=== PATIENT | male | born 1960 | race Caucasian/White ===

== ENCOUNTER 2016-12-28 17:17 | Inpatient (IN) ==
[2016-12-28] MEDS ORDERED: NS 1,000 ML IV ONE (17:34)
[2016-12-28] MEDS ORDERED: TYLENOL PO ONE (17:34)
--- NOTE | 2016-12-28 17:44 | PROVIDER DOCUMENTATION ---
HPI-Fever - General Chief Complaint: Fever Stated Complaint: GOUT Time Seen by Provider: 12/28/16 17:24 Source: patient Allergies/Adverse Reactions: Patient Allergies Allergy/AdvReac Type Severity Reaction Status Date / Time No Known Allergies Allergy Verified 06/15/16 20:59 Home Medications: Home Medication List Medication Instructions Recorded Confirmed Last Taken Type Hydrocodone/APAP 10 mg/325 mg 1 each PO BID 12/16/14 08/12/16 08/11/16 15:00 History [[place]-10] Indomethacin S.r. [Indocin Sr] 75 mg PO DAILY 12/16/14 08/12/16 08/11/16 08:00 History Methadone 10 mg PO TID 12/16/14 08/12/16 08/11/16 18:00 History Prednisone 10 mg PO DAILY 12/16/14 08/12/16 08/11/16 18:00 History Omeprazole [Prilosec] 40 mg PO DAILY@0700 06/15/16 08/12/16 08/12/16 08:00 History Allopurinol 300 mg PO BID 08/05/16 08/12/16 08/11/16 08:00 History Clonazepam [Klonopin] 2 mg PO HS 08/05/16 08/12/16 08/11/16 20:00 History Diazepam [Valium] 10 mg PO PRN PRN 08/05/16 08/12/16 2 Months Ago History Lisinopril [Zestril] 10 mg PO DAILY 08/05/16 08/12/16 08/12/16 08:00 History Oxycodone HCl/Acetaminophen 1 - 2 each PO Q6H PRN PRN #30 08/12/16 Unknown Rx [Percocet 10-325 mg Tablet] tablet Sulfamethoxazole/Trimethoprim 1 each PO BID #20 tablet 08/12/16 Unknown Rx [Bactrim Ds Tablet] - History of Present Illness-Fever Nature of Presenting Problem: Pt. is 56 yom that presents with c/o pain all over and states he has been out of his gout medications. Pt. is confused and friend at bedside reports he has been sick since Friday a week ago. Pt. reports he is SOB and is very lethargic. Fever Severity/Quality: reports: greater than 100.5 F Onset/Duration: reports: gradual, 1 week ago Timing: reports: still present. denies: improving, gone now, resolved prior to arrival, intermittent, constant, changing over time, getting worse Severity: reports: moderate. denies: mild, severe Context: reports: confusion Recent Illness?: reports: none. denies: pneumonia, UTI, MRSA, C. Diff Fever Therapy GLASS TUBE BENDER: Initiated none Cognitive Baseline: alert but confused Modifying Factors: improves with: nothing Associated Symptoms: reports: fatigue, fever/chills, joint pain, malaise, muscle aches, shortness of breath, weakness. denies: anxiety, arm pain, back/ neck pain, chest pain, constipation, cough, diaphoresis, diarrhea, dizziness, EENT symptoms, genitourinary problems, headaches, heartburn, loss of appetite, sinus congestion/drainage, nausea, rash, seizure, sensory/motor loss, pain with inspiration, swelling/mass in abdomen, syncope, vomiting, trouble walking Similar Symptoms Previously?: Yes Recently seen or treated by another doctor?: No - [place]ow Coma Score Best Eye Response ([place]ark[place]): (3) open to voice Best Verbal Response ([place]le): (4) confused conversation Best Motor Response ([place]): (6) obeys commands Review of Systems - Adult - REVIEW OF SYSTEMS - ADULT Constitutional: reports: see HPI, fever, fatique. denies: chills, night sweats Eyes: reports: see HPI. denies: discharge, blurred vision, double vision Ears, Nose, Mouth & Throat: reports: see HPI. denies: ear pain, hearing loss, sinus problem, nose pain, loose teeth, throat pain, throat swelling Cardiovascular: reports: see HPI. denies: edema, irregular heart rate, palpitations, syncope Respiratory: reports: see HPI, shortness of breath. denies: dyspnea on exertion , pleurisy, wheezing Gastrointestinal: reports: see HPI. denies: abdominal pain, diarrhea, nausea, vomiting Genitourinary: reports: see HPI. denies: discharge, flank pain, hesitency, urgency Musculoskeletal: reports: see HPI, joint pain, muscle aches. denies: back pain , neck pain Integumentary: reports: see HPI. denies: hair loss, itching, rash, skin thickening Neurological: reports: see HPI. denies: ataxia, headache/migraines, numbness, seizure, tremors Psychiatric: reports: see HPI. denies: anxiety, depression, emotional problems , insomnia, panic attacks, suicidal thoughts Past History - Adult - PAST MEDICAL HISTORY-ADULT Review of Records: reports: Old Records Reviewed, Nursing Assessment Review, Medications Reviewed, Social history reviewed & non-contributory. Major Childhood Illnesses: reports: denies history Cardiovascular: reports: HTN, hyperlipidemia Respiratory: reports: denies history Gastrointestinal: reports: denies history Obstetrical/Gynecological: reports: denies history Genitourinary: reports: denies history Musculoskeletal: reports: chronic pain Neurological: reports: denies history Psychiatric: reports: anxiety Endocrine/Immune: reports: denies history Other Conditions: reports: skin disorder - IMMUNIZATION STATUS Childhood Immunizations: See Nurse Assessment Flu Vaccine: See Nurse Assessment - FAMILY HISTORY Family History: reviewed, not pertinent - SOCIAL HISTORY Smoking: non-smoker Physical Exam-General - PHYSICAL EXAM-ADULT Initial Vital Signs Reviewed: Yes - CONSTITUTIONAL General Appearance: alert, moderate distress, obese, lethargic. negative: thin , anxious, slow to respond, obtunded, combative - EYES Eyes: PERRL/EOMI, pink conjunctivae. negative: conjuctival exudate, scleral icterus, subconjunctival hemorrhage - HEAD, EARS, NOSE, MOUTH & THROAT HENMT: normocephalic/atraumatic, moist mucous membranes. negative: angioedema, frontal tenderness, maxillary tenderness - NECK Neck: non-tender, full range of motion, supple, normal inspection. negative: lymphadenopathy, trachial deviation, thyromegaly - RESPIRATORY Respiratory: lungs clear, normal breath sounds, increased rate. negative: crackles, rales, rhonchi, stridor, wheezing - CARDIOVASCULAR Cardiovascular: regular rate, rhythm, no JVD, no murmur, tachycardia. negative : extra beats, friction rub, irregularly irregular - GASTROINTESTINAL (ABDOMEN) Abdominal Exam: normal bowel sounds, non tender, soft. negative: distended, guarding, rigid, rebound, tenderness, hernia, mass - LYMPHATIC Lymphatic: no adenopathy. negative: axilla node tender, cervical node tenderness - MUSCULOSKELETAL Back Exam: normal inspection, no CVA tenderness, no vertebral tenderness. negative: ecchymosis, swelling, vertebral tenderness Extremity: normal range of motion, non-tender, normal gait, normal inspection. negative: deformity, erythema, inflammation, swelling, tenderness Peripheral Pulses: radial (R): 2+, radial (L): 2+ - SKIN Integumentary: normal turgor, warm/dry, pallor. negative: cyanosis, diaphoresis , ecchymosis, erythema, jaundice, mottled, petechiae, purpura, rash, swelling, tenderness - NEUROLOGIC Neurologic: grossly normal, no motor/sensory deficits. negative: aphasia, facial droop, focal weakness, motor weakness, sensory deficit - PSYCHIATRIC Psych/Mental Status: normal thought content, normal thought process. negative: anxious, paranoid, tearful Progress - PLAN OF CARE/RESULTS Progress/Plan/Lab Results: Vital Signs - 8 hr 12/28/16 17:25 12/28/16 17:58 Temperature 101.8 F H Pulse Rate 119 H 106 H Respiratory Rate 26 H 18 Blood Pressure 80/42 098/057 O2 Sat by Pulse Oximetry 94 L 98 Laboratory Results - last 24 hr 12/28/16 12/28/16 12/28/16 17:38 17:38 17:38 WBC 12.76 H RBC 4.08 L Hgb 12.2 L Hct 36.5 L MCV 89.5 MCH 29.9 MCHC 33.4 RDW Std Deviation 13.9 Plt Count 423 H MPV 10.3 Immature Gran % (Auto) 0.5 Neut % (Auto) 71.8 Lymph % (Auto) 19.3 L [place] % (Auto) 5.4 Eos % (Auto) 2.5 Baso % (Auto) 0.5 Immature Gran # (Auto) 0.07 H Neut # (Auto) 9.15 H Lymph # (Auto) 2.46 [place] # (Auto) 0.69 H Eos # (Auto) 0.32 Baso # (Auto) 0.07 Segmented Neutrophils 77 H Lymphocytes 15 L Monocytes 8 Nucleated RBCs 2 H PT 14.1 INR 1.06 APTT (Factor Assay) 37.1 Sodium 134 L Potassium 4.5 Chloride 90 L Carbon Dioxide 18 L Anion Gap 26 BUN 67 H Creatinine 10.9 H* Estimated GFR/1.73 m2 5 BUN/Creatinine Ratio 6 Glucose 132 H Calculated Osmolality 290 Calcium 9.2 Total Bilirubin 0.40 AST 14 ALT 12 Alkaline Phosphatase 112 Troponin T Total Protein 7.6 Albumin 3.7 Globulin 4.0 Albumin/Globulin Ratio 1.0 Plasma Lactate 12/28/16 12/28/16 17:38 18:14 WBC RBC Hgb Hct MCV MCH MCHC RDW Std Deviation Plt Count MPV Immature Gran % (Auto) Neut % (Auto) Lymph % (Auto) [place] % (Auto) Eos % (Auto) Baso % (Auto) Immature Gran # (Auto) Neut # (Auto) Lymph # (Auto) [place] # (Auto) Eos # (Auto) Baso # (Auto) Segmented Neutrophils Lymphocytes Monocytes Nucleated RBCs PT INR APTT (Factor Assay) Sodium Potassium Chloride Carbon Dioxide Anion Gap BUN Creatinine Estimated GFR/1.73 m2 BUN/Creatinine Ratio Glucose Calculated Osmolality Calcium Total Bilirubin AST ALT Alkaline Phosphatase Troponin T 0.029 Total Protein Albumin Globulin Albumin/Globulin Ratio Plasma Lactate 2.8 H Orders Category Date Time Status Cardiac Monitoring DIRECTED Care 12/28/16 17:31 Active Cardiac Monitoring DIRECTED Care 12/28/16 17:31 Inactive Finger Stick Blood Sugar (ED) DIRECTED Care 12/28/16 17:31 Inactive IV Insertion ORDERED Care 12/28/16 17:31 Completed Notify MD of + Sepsis Screen NOW Care 12/28/16 17:31 Active Oxygen Therapy- ED Nursing DIRECTED Care 12/28/16 17:31 Inactive Saline Loc NOW Care 12/28/16 17:31 Inactive CHEST-2 VIEWS [RAD] Stat Exams 12/28/16 17:31 Draft ABG [RESP] Routine Lab 12/28/16 17:42 Ordered BLOOD CULTURE [BLDCUL] Stat Lab 12/28/16 17:43 Ordered CBC WITH DIFF [HEME] Stat Lab 12/28/16 17:38 Completed COMPREHENSIVE METABOLIC PANEL [CHEM] Stat Lab 12/28/16 17:38 Completed LACTATE, PLASMA [CHEM] Stat Lab 12/28/16 18:14 Completed [address]IME WITH INR PL [COAG] Stat Lab 12/28/16 17:[address] [COAG] Stat Lab 12/28/16 17:38 Completed TROPONIN T Stat Lab 12/28/16 17:[address] W/POSS RFLX CULT [URINALYSIS] Stat Lab 12/28/16 19:20 Received 0.9% Sodium Chloride Inj [Ns] 1,000 ml Med 12/28/16 19:56 Discontinued .ROUTE As Directed 0.9% Sodium Chloride Inj [Ns] 1,000 ml Med 12/28/16 17:34 Discontinued IV 999 mls/hr 0.9% Sodium Chloride Inj [Ns] 2,500 ml Med 12/28/16 18:58 Active IV 999 mls/hr Acetaminophen [Tylenol] Med 12/28/16 17:34 Discontinued 1,000 mg PO NOW ONE Piperacil/Tazobact 2.25 gm/Ns [Zosyn 2.25 gm/Ns] Med 12/28/16 18:57 Discontinued 2.25 gm in 50 ml IV NOW Piperacil/Tazobact 3.375 gm/Ns [Zosyn 3.375 gm/Ns] Med 12/28/16 19:09 Discontinued 3.375 gm in 50 ml .ROUTE As Directed Oxygen Device Stat Oth 12/28/16 17:31 Active EKG [EKG] Stat Ther 12/28/16 17:42 Draft Discussed results and plan of care with patient. Patient agrees with plan and verbalizes understanding. Result Diagrams: 12/28/16 17:38 12/28/16 17:38 - XRAY 1 XRAY Study: Chest XRAY Interpretation: No pneumonia ([place]) - CONSULTS/PCP/HOSPITALIST Notification #1 *Consult/PCP/Hospitalist*: DIANA Jimenes Time Discussed: 20:01 Reason/Comments: Admission Consult Disposition: other (Yudy called Dr. Rodriguez and he asked that this patient be sent to [facility].) #2 Consult: Dr. Roth Time Discussed: 20:09 Reason/Comments: Admission Consult Disposition: Admit (Will accept if there is an ICU bed. Discussed with Yduy and she states admit and the patient will be an ER hold until a bed is available.) Departure - Departure Time of Disposition Decision: 19:09 DIAGNOSIS: Elevated serum lactate dehydrogenase, Elevated troponin Acute renal failure Qualifiers: Acute renal failure type: unspecified Qualified Code(s): N17.9 - Acute kidney failure, unspecified Disposition: ADMITTED INPATIENT 09 Certified Medical Emergency: Emergent Condition: Serious Referrals and Follow-Ups: Zach Seay MD [Primary Care Provider] - - Critical Care Note This patient required my direct personal management.: No Attestation - Physician/ NEO Attestation Patient care was provided by Advanced Practice Provider:: Yes Advanced Practice Provider:: Issac Sprague Advanced Practice Provider documentation review:: The Mid-level provider documentation, treatment plan and medical decision making was reviewed by the physician who agrees with all treatment and medical decision making by the MLP. The physician spent face to face time with patient:: Yes Advanced Practice Provider documentation review:: The physician spent face to face time with this patient and agrees with all MLP documentation, treatment, and medical decision making by the MLP. See provider notes for further information.
[2016-12-28 18:02] LABS: BASO% 0.5 % (0.0-0.8); EOS# 0.32 X1000 (0.0-0.7); EOS% 2.5 % (0.0-10.0); HEMATOCRIT 36.5 % (42.0-52.0); HEMOGLOBIN 12.2 g/dL (14.0-18.0); IMM GRAN# 0.07 X1000 (0.0-0.04); IMM GRAN% 0.5 % (0.0-0.5); INR 1.06 (0.86-1.15); LYMPH# 2.46 X1000 (1.2-3.4); LYMPH% 19.3 % (20.5-51.1); MCH 29.9 PG (27-31); MCHC 33.4 g/dL (33-37); MCV 89.5 FL (81-99); MONO# 0.69 X1000 (0.11-0.59); MONO% 5.4 % (1.7-9.3); MPV 10.3 FL (7.4-10.4); NEUT% 71.8 % (42.2-75.2); PLT 423 X1000 (130-400); PROTIME 14.1 Seconds (12.1-15.5); RBC 4.08 XMIL (4.7-6.1)
[2016-12-28 18:03] LABS: PTT PL 37.1 Seconds (22.6-43.9)
[2016-12-28 18:07] LABS: BLOOD TYPE ARTERIAL; SAMPLE BLOOD
[2016-12-28 18:43] LABS: MANUAL DIFF NEEDED? YES
[2016-12-28 18:44] LABS: LYMPHS 15 % (21-51); MONO 8 % (1-9); NRBC 2 % (0-0)
[2016-12-28 18:52] LABS: ALBUMIN 3.7 g/dL (3.5-5.0); CALCIUM 9.2 mg/dL (8.8-10.2); POTASSIUM 4.5 mmol/L (3.5-5.1); TOTAL BILIRUBIN 0.4 mg/dL (0.20-1.00); TOTAL PROTEIN 7.6 g/dL (6.3-8.3)
[2016-12-28] MEDS ORDERED: ZOSYN 2.25 GM/NS 2.25 GM/50 ML IVPB IV ONE (18:57)
[2016-12-28] MEDS ORDERED: NS 2,500 ML IV ONE (18:58)
--- NOTE | 2016-12-28 18:59 | Diag Imaging Result Document ---
PROCEDURE NAME: CHEST-2 VIEWS - 12/28/2016 FRONTAL AND LATERAL CHEST, 2 VIEWS: COMPARISON: Compared to 12/15/2014. The lungs are well expanded. The heart is not enlarged. The vessels are not distended. There are no infiltrates. No pleural effusions. There is a calcified right hilar lymph node. IMPRESSION: No pneumonia.
[2016-12-28] MEDS ORDERED: ZOSYN 3.375 GM/NS 3.375 GM/50 ML IVPB ONE (19:09)
--- NOTE | 2016-12-28 19:36 | EKG Report ---
Test Performed on : 12/28/2016 5:38:52 PM Test Reason : SOB Blood Pressure : / mmHG Vent. Rate : 117 BPM Atrial Rate : 117 BPM P-R Int : 164 ms QRS Dur : 092 ms QT Int : 338 ms P-R-T Axes : 036 -54 070 degrees QTc Int : 471 ms Sinus tachycardia. Left anterior fascicular block Abnormal ECG When compared with ECG of 05-AUG-2016 15:00, Left anterior fascicular block is now present Unconfirmed Result
[2016-12-28] MEDS ORDERED: NS 1,000 ML ONE (19:56)
[2016-12-28 20:32] LABS: BILIRUBIN URINE 2+ (NEGATIVE); BLOOD URINE NEGATIVE (NEGATIVE); CLARITY SL. CLOUDY (CLEAR); COLOR AMBER; GLUCOSE URINE NEGATIVE (NEGATIVE); LEUKOCYTES URINE TRACE (NEGATIVE); NITRITE URINE NEGATIVE (NEGATIVE); PH URINE 6.5; PROTEIN URINE 1+(30 mg/dL) mg/dL (NEGATIVE); SP GRAVITY URINE 1.025; UROBILINOGEN URINE 1+(1 mg/dL)
[2016-12-28 20:33] LABS: URINE CAST NONE SEEN /LPF; URINE CRYSTAL URIC ACID PRESENT /HPF; URINE CULTURE PL NEEDED? YES; URINE EPITHELIAL CELLS >10 /HPF (<10); URINE SOURCE CLEAN CATCH; URINE WBC <10 /HPF (<10)
[2016-12-28 21:15] LABS: BE -4.8 mmoll (-3.0-3.0); DRAW SITE L RADIAL; METHB 1.2 % (0.0-1.5); O2(CT) 14.3 mL/dL (15.0-23.0); PCO2(98.6) 38 mmHg (35-45); PO2(98.6) 75 mmHg (60-100); SAO2 97.9 % (95.0-100.0); THB 10.7 g/dL (11.5-17.4); pH(98.6) 7.34 (7.35-7.45)
[2016-12-28 21:17] LABS: ALLEN TEST YES; MODALITY ROOM AIR
[2016-12-28] MEDS ORDERED: NS 500 ML ONE (21:22)
[2016-12-28] MEDS ORDERED: TYLENOL PO PRN (22:41)
[2016-12-28] MEDS: NS 1,000 ML IV SCH (23:04)
--- NOTE | 2016-12-28 23:35 | HISTORY AND PHYSICAL ---
PRIMARY CARE PHYSICIAN: Dr. Zach Seay. CHIEF COMPLAINT: Fever, not feeling well for the past 3 days. HISTORY OF PRESENTING ILLNESS: A 56-year-old male with a history of gout, GERD, hypertension had presented to [facility] Emergency Department due to patient having fevers and chills and was lethargic. Patient states that he was basically in the bed not able to get up for several days. Finally family members had arrived and brought patient to the emergency department. He was evaluated in the emergency department and it was noted that he was in renal failure and was also hypotensive. He also a mild elevation his white count and was suspected he was septic. Due to lack of subspecialty care he was transferred to [facility] ICU for further evaluation and management. At the time of my examination, he had denied any headache, chest pains, shortness of breath, hemoptysis or weight changes. As stated that he had some fevers and he has not feeling well and he is complaining of his right leg hurting. PAST MEDICAL HISTORY: Includes gout, anxiety disorder, back pain, GERD, hypertension. PAST SURGICAL HISTORY: Left elbow surgery, cholecystectomy, bilateral carpal tunnel surgery. ALLERGIES: No known drug allergies. CURRENT MEDICATIONS: As listed in the MAR. SOCIAL HISTORY: He denies any history of smoking, alcohol or illicit drug use. FAMILY HISTORY: No history of coronary disease. REVIEW OF SYSTEMS: Twelve point review of systems is as in HPI. Other systems negative. PHYSICAL EXAMINATION: GENERAL: Cooperative, friendly male. He is resting comfortably now. VITAL SIGNS: Temperature 101.8 degrees, pulse 119, respiration 26, blood pressure 80/42. HEENT: Atraumatic, normocephalic. Extraocular movements intact. PERRLA. NECK: No masses. CHEST: Clear to auscultation. CARDIOVASCULAR: Regular rate and rhythm. ABDOMEN: Soft. Positive bowel sounds. EXTREMITY: Edema and tenderness in right lower extremity. NEURO: He is awake, alert, oriented x3. : No bladder distention. SKIN: Moderate warmth and tenderness in right leg. LABORATORIES AND STUDIES: WBC 12.76, hemoglobin 12.2, hematocrit 36.5, platelets 423,000. Sodium 134, potassium 4.5, chloride 90, CO2 is 18, BUN is 67, creatinine is 10.9, glucose is 132, plasma lactate is 2.8. ASSESSMENT: This is a 56-year-old male with a history of gout, anxiety disorder and hypertension was brought to [facility] Emergency Department due to patient having fevers and being lethargic and he was found to be hypotensive there and renal failure. Subsequently transferred to [facility] for further evaluation, management. 1. Fever, chills, suspected sepsis. 2. Hypotension. 3. Acute kidney injury. 4. Right lower extremity pain. Will need to rule out deep venous thrombosis. 5. Gastroesophageal reflux disease. 6. Possible urinary tract infection. PLAN: 1. We will admit patient to ICU. 2. We will check blood cultures and start patient on IV antibiotics. 3. We will continue with IV fluids. 4. We will monitor renal function. Consult Nephrology. 5. Will schedule venous Doppler the right lower extremity. 6. We will check urine cultures and have patient continue on antibiotics. 7. Deep vein thrombosis prophylaxis with heparin. 8. Will continue to follow and reassess. cc: Dread Roth MD
[2016-12-29] MEDS ORDERED: XYLOCAINE 2% JELLY UROJECT TOP ONE (00:01)
[2016-12-29] MEDS: ZOSYN 2.25 GM/NS 2.25 GM/50 ML IVPB IV SCH ×4 (00:54→17:28)
[2016-12-29 05:20] LABS: MANUAL DIFF NEEDED? NO
[2016-12-29 05:25] LABS: BASO% 0.4 % (0.0-0.8); EOS# 0.29 X1000 (0.0-0.7); EOS% 3.8 % (0.0-10.0); IMM GRAN# 0.04 X1000 (0.0-0.04); IMM GRAN% 0.5 % (0.0-0.5); LYMPH# 1.22 X1000 (1.2-3.4); LYMPH% 16.1 % (20.5-51.1); MCH 30.5 PG (27-31); MCHC 33.3 g/dL (33-37); MCV 91.5 FL (81-99); MONO# 0.53 X1000 (0.11-0.59); MPV 9.4 FL (7.4-10.4); NEUT% 72.2 % (42.2-75.2); PLT 277 X1000 (130-400); RBC 3.28 XMIL (4.7-6.1)
[2016-12-29 05:55] LABS: CALCIUM 8.8 mg/dL (8.8-10.2); POTASSIUM 4.6 mmol/L (3.5-5.1)
[2016-12-29 06:23] LABS: URINE CULTURE NEEDED? NO; URINE SOURCE CATH
[2016-12-29 06:24] LABS: BILIRUBIN URINE SMALL (NEGATIVE); BLOOD URINE MODERATE (NEGATIVE); COLOR YELLOW; GLUCOSE URINE NEGATIVE (NEGATIVE); SP GRAVITY URINE 1.018; TURBIDITY URINE CLEAR (CLEAR); UR EPITHELIAL CELLS <10 /HPF (<10); URINE BACTERIA NEGATIVE /HPF; URINE WBC <10 /HPF (<10)
[2016-12-29 06:25] LABS: LEUKOCYTES URINE NEGATIVE (NEGATIVE); NITRITE URINE NEGATIVE (NEGATIVE); PH URINE 5.5; PROTEIN URINE 50 mg/dL (NEGATIVE); URINE CASTS NONE SEEN; URINE CRYSTALS NONE SEEN; URINE MICRO REVIEW NEEDED? YES; URINE SMALL ROUND CELLS NONE SEEN; UROBILINOGEN URINE NORMAL (NORMAL)
[2016-12-29] MEDS: HEPARIN SUBQ SCH ×2 (08:54→21:49)
[2016-12-29] MEDS: NS 1,000 ML IV SCH ×3 (08:55→17:28)
--- NOTE | 2016-12-29 10:31 | PROGRESS NOTE ---
DATE: 12/29/2016 SUBJECTIVE: Patient reports feeling fine. Less pressure in the suprapubic area. No fever or chills. OBJECTIVE: Vital Signs: Temperature 97.5 degrees, heart rate 81, respiratory rate 21, blood pressure 126/79, O2 saturation 98% 2 L nasal cannula. General examination: This is an 56-year- old male, lying in bed, in no acute distress. HEENT: Head is normocephalic, atraumatic. Anicteric. Pale conjunctivae. Neck: Supple. No JVD noted. No carotid bruits. No lymphadenopathy. No thyromegaly. Cardiovascular Examination: S1, S2 heard. No murmurs, gallops, or rubs. Regular rate and rhythm. Respiratory: Clear bilaterally to auscultation. No work of breathing or using accessory muscles. Abdomen: Soft. Nontender to palpation. Bowel sounds present. No organomegaly. Extremities: Edema and tenderness in the right lower extremity. Peripheral pulses present in both legs. Neurologic: Patient is alert and oriented x3. Able to move 4 extremities. Cranial nerves 2 through 12 grossly normal. LABORATORY DATA: White cell count 7.57, hemoglobin 10.0, hematocrit 30.0, platelets 277,000. BMP is remarkable for creatinine 9.0, BUN 61, anion gap 19, bicarbonate 20. ASSESSMENT: Sepsis suspected. PLAN: Patient was admitted to the intensive care unit because of suspicion for sepsis. It was documented in the chart on the H P that the temperature was 101.8. The white cell count was elevated a little bit yesterday and fever documented and a suspicion for urinary tract infection. Patient has been started on Zosyn. If the patient has sepsis I do not think 1 medication is a good option for the patient. I will start vancomycin as well but considering that he had acute renal failure, will use daptomycin for gram-positive coverage. Also, there is no imaging that confirms any source of sepsis so what we are going to do is to do a CT scan of the chest, abdomen, and pelvis, and a renal ultrasound to evaluate for renal dysfunction. The blood pressure has been normal during all of his stay here in the intensive care unit so we are going to transfer him to a regular floor. This acute kidney injury could be explained for the possibility of obstructive uropathy. Patient reports he was for urinating for a few weeks. Sometimes he reports that he was not able to make pee at all for 1 day. After we placed a Yan catheter the patient has been fine so we are going to continue with the same management with IV fluids. We are going to also check BMP daily and we are going to do a renal ultrasound as well. For the obstructive uropathy, we are going to consult urology on Friday. cc: Umer Carreno MD
[2016-12-29] MEDS: ZOFRAN IV PRN ×2 (12:32→17:54)
[2016-12-29] MEDS: CUBICIN (FOR INPATIENT USE) 500 MG in NS 100 ML IV SCH (14:44)
--- NOTE | 2016-12-29 16:36 | Diag Imaging Result Document ---
PROCEDURE NAME: US RENAL 2 (RETROPER) COMPLETE - 12/29/2016 RENAL ULTRASOUND: FINDINGS: The right kidney measures 11.8 x 5.6 x 5.5 cm. Normal renal echotexture and cortical thickness. No renal stone or hydronephrosis. No renal mass. The left kidney measures 12.0 x 6.2 x 7.0 cm. Normal renal echotexture. Normal cortical thickness. No stone or hydronephrosis. No renal mass. IMPRESSION: Normal renal ultrasound.
--- NOTE | 2016-12-29 16:43 | Diag Imaging Result Document ---
PROCEDURE NAME: THORAX/ABDOMEN/PELVIS W/O CONT - 12/29/2016 CT CHEST, ABDOMEN AND PELVIS WITHOUT CONTRAST: FINDINGS: Dose reduction protocol. Minimal posterior pleural thickening. No effusions. The heart is mildly prominent. There are multiple calcified right hilar and subcarinal lymph nodes. No enlarged mediastinal lymph nodes. No thoracic aortic aneurysm. No consolidation. Minimal increased markings in the lower lungs consistent with atelectasis. There is a 7 mm elongated nodule in the apex of the left lower lobe on image 38. IMPRESSION: 1. No pneumonia. 2. Basilar atelectasis. 3. Mildly prominent heart. 4. Nonspecific subcentimeter left lower lobe nodule. CT OF THE ABDOMEN AND PELVIS: FINDINGS: Dose reduction protocol. There is fatty infiltration of the liver. There are nonspecific hyperdense nodules in the left and right lobes. The gallbladder has been removed. Normal spleen, pancreas, and adrenal glands. The left kidney is atrophic. A nonspecific nodule in the right kidney. No renal stones. No hydronephrosis. No aortic aneurysm. Moderate atherosclerosis. No bowel obstruction. Normal appendix. No abscess. A Yan catheter has the urinary bladder decompressed. Small fat-filled umbilical hernia. IMPRESSION: 1. Cholecystectomy. 2. Fatty infiltration of the liver. Nonspecific hyperdense nodules within the liver. 3. No bowel obstruction. Normal appendix. 4. No hydronephrosis. A preliminary report was given at 4:21 PM. MTDD
[2016-12-29] MEDS: SODIUM CHLORIDE 0.9% INJ SCH (18:32)
[2016-12-29] MEDS: PROTONIX IV SCH (18:33)
[2016-12-29 20:11] LABS: UR PROT RANDOM 18.1 mg/dL
[2016-12-30] MEDS: NS 1,000 ML IV SCH ×3 (00:20→18:31)
[2016-12-30] MEDS: ZOSYN 2.25 GM/NS 2.25 GM/50 ML IVPB IV SCH ×5 (01:09→23:23)
[2016-12-30] MEDS: MORPHINE IV PRN ×4 (03:42→23:14)
[2016-12-30 07:20] LABS: MANUAL DIFF NEEDED? NO
[2016-12-30 07:24] LABS: BASO% 0.6 % (0.0-0.8); EOS# 0.39 X1000 (0.0-0.7); EOS% 5.5 % (0.0-10.0); HEMOGLOBIN 9.6 g/dL (14.0-18.0); IMM GRAN# 0.03 X1000 (0.0-0.04); IMM GRAN% 0.4 % (0.0-0.5); LYMPH# 1.04 X1000 (1.2-3.4); LYMPH% 14.6 % (20.5-51.1); MCH 30.7 PG (27-31); MCHC 33.1 g/dL (33-37); MCV 92.7 FL (81-99); MONO% 5.6 % (1.7-9.3); MPV 9.7 FL (7.4-10.4); NEUT% 73.3 % (42.2-75.2); PLT 269 X1000 (130-400); RBC 3.13 XMIL (4.7-6.1)
[2016-12-30 08:07] LABS: CALCIUM 9.4 mg/dL (8.8-10.2); POTASSIUM 4.5 mmol/L (3.5-5.1)
[2016-12-30] MEDS: HEPARIN SUBQ SCH ×2 (09:06→20:54)
[2016-12-30] MEDS ORDERED: SOLU-MEDROL IV ONE (10:14)
--- NOTE | 2016-12-30 11:25 | PROGRESS NOTE ---
DATE: 12/30/2016 SUBJECTIVE: Patient complaining of severe pain on the right big toe and the right hand as well. OBJECTIVE: Vital Signs: Temperature 98.9 degrees, heart rate 89, respiratory rate 20, blood pressure 148/59, O2 saturation 99% on 2 L nasal cannula. General Examination. This is a 56-year- old, male, lying in bed, in no acute distress. HEENT: Head is normocephalic and atraumatic. Anicteric sclerae and pale conjunctivae. Mucous membranes moist. Neck: Supple. No JVD noted. No carotid bruits. No lymphadenopathy. No thyromegaly. Cardiovascular Examination: S1 and S2 heard. No murmurs, gallops, or rubs. Regular rate and rhythm. Respiratory Examination: Clear bilaterally to auscultation. No work of breathing or using accessory muscles. Abdomen: Soft, nontender to palpation. Bowel sounds heard. No organomegaly. Extremities: There is right big toe swelling noted, as well as swelling and also some tophi noted in the right hand. Neurological Examination: Patient is alert and oriented x3. Able to move 4 extremities. Cranial nerves 2-12 are grossly normal. Laboratory Data: White cell count 7.12, hemoglobin 9.6, hematocrit 29, platelets 269,000. The creatinine is 4 today. ASSESSMENT AND PLAN: 1. Acute kidney injury/obstructive uropathy. Patient was admitted to the hospital because he was not able to pee and actually he reported that some days, almost for 24 hours, he was not able to pee. He had to strain to make pee. Upon emergency room evaluation, the creatinine was 10.4 so he got a Yan catheter placed. Since then, he is peeing better. He was also having symptoms of what looks like uremia like nausea and vomiting, and feeling tired. Now those symptoms are resolving. We are going to follow recommendations from Dr. Rosales and from Dr. Perez from urology. 2. Sepsis suspected. Initially, the patient was admitted to the hospital because of fever and also suspected urinary tract infection. Urine culture shows no growth and blood cultures are still pending but so far negative. At this time, I do not think that this patient has sepsis. We are going to continue with antibiotics until we get the final results of the cultures. Then, we will discontinue it. 3. Gouty attack. We are going to try Solu-Medrol and we will see how this patient does. cc: Umer Carreno MD
--- NOTE | 2016-12-30 15:20 | CONSULTATION ---
DATE OF CONSULTATION: 12/30/2016 CONSULTING PHYSICIAN: Dr. Gonzalez [place]. HISTORY OF PRESENT ILLNESS: Mr. Leavitt is a 56-year-old male with a strong history of gout, which he states is so severe that he has been placed on disability. His primary care physician is Dr. Seay, and he sees a pain clinic physician. Now that he is on disability, he is having to travel to [place] for this visit. Patient states that approximately a week ago Friday, he was not feeling well. He continued to take his medications, though he had run out of his Indocin and his [place]. He states that he started becoming weak on Friday, and it was the last time that he was seen by his family. Upon , patient stated that he was mostly bed- bound. Had gotten out of bed to go over to his pain clinic appointment, at which time he was given his pain medication, and he promptly went back home and went to bed. He presented on the to [facility] at the urging of his father and his siblings, and was found to be in acute kidney injury, with severe dehydration, with fever and chills. Patient stated that he does not remember much. He thought that he was talking to his family coherently, though his family, with his sister at the bedside, said that he was not. He denies any chest pain. He has no increased work of breathing. He does ache all over in all of his joints. He was found to be hypotensive in the emergency department at [place], at which time he was given several liters of IV fluid, and transferred to [facility]'s ICU for further evaluation. His creatinine presentation was 10.7 on admission. Troponin was normal. I do not see any CPK. His plasma lactate 2 days ago was 2.8. Urinalysis was a initially cloudy, with protein, bilirubin, WBCs, uric acid present, with bacteria, microscopic WBCs, and urine epithelial cells. He had an initial white count of 12.76. Currently, patient is on the floor. He is able to move about. He has a Yan catheter in place. He had a CT of the abdomen and pelvis that did not indicate any hydronephrosis. This was done without contrast. No masses or lesions evident. He is now making good urine. His creatinine is noted now to be down to 4. His nausea has improved. He does deny any fever or chills at this time. He is on renal-dosed antibiotics. He denies any chest pain. No increased work of breathing. He is alert and oriented x3 to most recent events. He denies any chest pain or palpitations. PAST MEDICAL HISTORY: Noted to include gout, anxiety disorder, back pain, GERD , and hypertension. PAST SURGICAL HISTORY: He has had a left elbow repair for gout crystals, cholecystectomy, bilateral carpal tunnel surgeries. SOCIAL HISTORY: He lives alone. He has family who are attentive to his care. He denies any tobacco or alcohol. Illicit drug use back in his teenage days, nothing present. FAMILY HISTORY: No history of coronary artery disease. No history of renal disease. CURRENT ALLERGIES: No known drug allergies. HOME MEDICATIONS: Hydrocodone APAP 10/325, methadone 10 t.i.d., indomethacin 75 mg daily, Zestril 10 mg daily, Valium 10 mg p.r.n., Bactrim DS, oxycodone 10/325, Tylenol. The patient was subsequently transferred on Cubicin, heparin, morphine, Zofran, Tylenol, Zosyn, and normal saline. REVIEW OF SYSTEMS: Review of systems x10, with pertinent positives listed above in the HPI. PHYSICAL EXAMINATION: Vital Signs: His most recent vital signs, temperature is 98.9 degrees, blood pressure 148/59, heart rate 89, respirations 20. He is currently on 2 L nasal cannula. Last recorded saturation 99%. He has had 3900 in. He has had 2250 out, with greater than 400-500 in his Yan catheter at this time. LABORATORY DATA: This morning, sodium 142, potassium 4.5, chloride 107, CO2 20 , BUN 43, creatinine 4, glucose 99. His anion gap is 15, calcium is 9.4. White count 7.12, hemoglobin 9.6, hematocrit 29, platelet count 269,000. Urinalysis culture indicates no growth. His renal ultrasound indicates the right kidney measuring 11.8, with the left measuring 12. He has a FENa score of 3.88%, indicating acute tubular necrosis. PHYSICAL EXAMINATION: General: This is a 56-year-old white male. He is in no acute distress, though he is slightly uncomfortable after turning. Skin: Warm and dry. HEENT : Normocephalic, atraumatic. Conjunctiva is pale. He has JOHN. Mucous membranes moist. Neck: Supple. Trachea midline. No JVD. Cardiovascular: Regular rate and rhythm. He is without murmur or gallop. Lungs: Clear to auscultation anteriorly. Equal excursions. Abdomen: Large, round, soft, nontender. Positive bowel sounds. Extremities: Trace pretibial edema. They are tender to touch. He does have some chronic venous stasis noted to the lower extremities. Genitourinary: Yan catheter is in place. He does have some scrotal swelling. Neurological: He is alert and oriented x3, able to move all 4 extremities, though weakly. ASSESSMENT AND PLAN: 1. Acute kidney injury. More than likely, this is acute tubular necrosis secondary to hypotension, dehydration, YANI effect, and the patient had been on Bactrim previously. These have all currently been held for nephrotoxic medications. He continues on IV fluids. He is making adequate urine. There is a normal renal ultrasound. Patient is slowly improving with IV fluids. We will continue to monitor. 2. Electrolytes. These are stable. 3. Acid-base balance. This is slowly improved. 4. Anemia. This remains low, but stable. 5. Sepsis. The patient appears to possibly have urinary urosepsis. He remains on renal-dosed Cubicin and Zosyn. No indications for any intervention or changes at this time. 6. Altered mental status. This has improved in the last 24-48 hours. I would like to thank you for allowing us to follow with this patient. Seen, data reviewed, discussed with Arabella Carpenter on 12/30/16. I agree with the above assessment and plan of care. rg Dictated by DIANA Royal for Jeffy Rosales MD cc: DIANA Royal MD [facility]
[2016-12-30] MEDS: CUBICIN (FOR INPATIENT USE) 500 MG in NS 100 ML IV SCH (16:19)
[2016-12-30] MEDS: PROTONIX IV SCH (18:12)
[2016-12-30] MEDS: SODIUM CHLORIDE 0.9% INJ SCH (18:12)
[2016-12-30] MEDS: ZOFRAN IV PRN (18:30)
[2016-12-30] MEDS: SOLU-MEDROL IV SCH (20:54)
[2016-12-30] MEDS: FLOMAX PO SCH (21:00)
--- NOTE | 2016-12-30 21:35 | CONSULTATION ---
DATE OF CONSULTATION: 12/30/2016 CONSULTING PHYSICIAN: Dr. Garay with hospitalist service. REASON FOR CONSULTATION: Urinary retention, acute kidney injury. HISTORY OF PRESENT ILLNESS: A 56-year-old male who reports a longstanding history of slow stream, postvoid dribbling, and sensation of incomplete emptying. He, in summary, started feeling not well, and was found to be lethargic by his family, which brought him to the emergency room, where he was found to have a creatinine of 10.4. At that point, a Yan catheter was placed and CT scan and ultrasound were done, without any evidence of upper tract obstruction. His creatinine has now trended down to 4. He denies gross hematuria, dysuria, or recurrent UTIs in the past. He reports having had a prostate exam by his primary care physician, who is Dr. Seay, a number of months ago, and not being told his prostate was excessively large. He currently feels comfortable with the catheter in place. PAST MEDICAL HISTORY: Hypertension, GERD, chronic back pain, anxiety, and gout. PAST SURGICAL HISTORY: Carpal tunnel release, cholecystectomy, and left elbow surgery. ALLERGIES: No known drug allergies. SOCIAL HISTORY: Denies tobacco, alcohol, or drug use. FAMILY HISTORY: Negative for malignancies. HOME MEDICATIONS: Prednisone, [place], methadone, Indocin, Valium, Klonopin, clonidine, Voltaren, allopurinol, lisinopril, Prilosec. REVIEW OF SYSTEMS: Reviewed in 12 systems. Negative, with the exception of the HPI. PHYSICAL EXAMINATION: Vital Signs: Temperature 98.3 degrees, pulse 93, blood pressure 113/45. General: No acute distress. HEENT: Normocephalic, atraumatic. Cardiovascular: Regular rate and rhythm. Pulmonary: Bilateral breath sounds. Abdomen: Protuberant, nontender to palpation. Genitourinary: Normal meatus. Normal phallus. Yan catheter present, draining straw-colored urine. Digital Rectal Examination: A 40 g smooth prostate, without nodules noted. Lymphatics: No groin lymphadenopathy. Dermatologic: No obvious skin rashes noted. Neurologic: Alert and oriented x3. Psychiatric: Appropriate mood and affect. PERTINENT LABORATORY DATA: White cell count of 7000, creatinine of 4, which is down from 9 yesterday. His urinalysis was positive for uric acid crystals, blood, and trace white blood cells. PERTINENT IMAGES: CT of the chest, abdomen, and pelvis on 12/29/2016, revealing no evidence of hydroureteronephrosis or renal stones. He has atrophic left renal moiety, as well as a small nodule on the right kidney. ASSESSMENT: A 56-year-old male with what sounds like a history of lower urinary tract symptoms, which is a combination of BPH, and likely his medications. He came in with acute kidney injury, which is now improved with Yan drainage. I have discussed with the patient, as he has never been on medical treatment for BPH, that he would benefit from Flomax and voiding trial in approximately 5-7 days. If his creatinine improves in the next day or two, and he is subsequently deemed ready for discharge, he can go home with Yan catheter and follow with me in clinic for a voiding trial. Side effects of Flomax were explained. PLAN: 1. Flomax 0.4 mg twice a day. 2. Yan catheter to gravity drainage. 3. Will plan to perform a voiding trial in 5-7 days, which can be done outpatient if he is otherwise clear for discharge. Thank you for the consultation. cc: Darci Perez MD
[2016-12-31] MEDS: MORPHINE IV PRN ×2 (03:18→10:17)
[2016-12-31] MEDS: NS 1,000 ML IV SCH (03:20)
[2016-12-31] MEDS: ZOSYN 2.25 GM/NS 2.25 GM/50 ML IVPB IV SCH ×2 (05:57→12:19)
[2016-12-31 06:35] LABS: BASO% 0.2 % (0.0-0.8); HEMATOCRIT 29.2 % (42.0-52.0); HEMOGLOBIN 9.6 g/dL (14.0-18.0); IMM GRAN# 0.02 X1000 (0.0-0.04); IMM GRAN% 0.3 % (0.0-0.5); LYMPH% 7.9 % (20.5-51.1); MANUAL DIFF NEEDED? YES; MCH 30.1 PG (27-31); MCHC 32.9 g/dL (33-37); MCV 91.5 FL (81-99); MONO# 0.07 X1000 (0.11-0.59); MONO% 1.1 % (1.7-9.3); MPV 9.6 FL (7.4-10.4); NEUT% 90.5 % (42.2-75.2); PLT 293 X1000 (130-400); RBC 3.19 XMIL (4.7-6.1)
[2016-12-31 07:19] LABS: LYMPHS 8 % (21-51)
[2016-12-31 08:16] LABS: POTASSIUM 5.6 mmol/L (3.5-5.1)
[2016-12-31] MEDS: FLOMAX PO SCH (09:43)
[2016-12-31] MEDS: HEPARIN SUBQ SCH (09:43)
[2016-12-31] MEDS: SOLU-MEDROL IV SCH (09:44)
[2016-12-31 14:35] VITALS: BP 160/78
--- NOTE | 2016-12-31 14:59 | PROGRESS NOTE ---
DATE: 12/31/2016 SUBJECTIVE: Mr. Leavitt is resting quietly in bed. He denies any pain. No increased work of breathing. OBJECTIVE: His most recent vital signs are temperature 97.3 degrees, blood pressure 154/98, heart rate 136, respirations are 21. He continues on 2 L nasal cannula. Last recorded saturation is 98%. He has had 3035 in, he has had 2 L out per Yan catheter yesterday for 24 hours. LABS: This a.m., sodium 138, potassium 5.6, chloride 106, CO2 19. BUN 31, creatinine 2.3, glucose 172, his anion gap is 13, calcium of 9, his white count 6.33, hemoglobin 9.6, hematocrit 29.2, with a platelet count of 293,000. PHYSICAL EXAMINATION: General: This is a 56-year-old white male. He is currently resting in bed. He has no acute distress. Skin: Warm and dry. HEENT: Normocephalic, atraumatic. Conjunctiva is pale. He has JOHN. Mucous membranes moist. Neck: Supple. Trachea midline. No JVD. Cardiovascular: Regular rate and rhythm. He is without murmur or gallop. Lungs: Clear to auscultation anteriorly. Equal excursion on O2. Abdomen: Round, soft, nontender. Positive bowel sounds. Genitourinary: Not inspected. Yan catheter remains in place. Adequate urine out. Extremities: Have trace pretibial edema. No clubbing or cyanosis. Neurological: Alert and oriented x3. ASSESSMENT AND PLAN: 1. Acute kidney injury and possible context of dehydration and urinary retention. Patient's BUN and creatinine have continued to improve over the last 48 hours. It is now down to 2.3 with a BUN of 31, adequate urine out. We will continue to monitor. OK for discharge. rg 2. Urinary retention. Patient has been evaluated by Dr. Perez with plans of discharge with Yan catheter and urinary trials after discharge on Flomax per recommendation. 3. Electrolytes and acid-base balance. Patient has hyperkalemia. No indications for any intervention. We will check a potassium at 4 p.m. this evening and reevaluate and follow labs in the morning. 4. Anemia. This remains low but stable. 5. Dehydration. This has continued to improve. Patient has a normal saline continuing at 125 mL an hour. I would to thank you for allowing us to follow with this patient. Data reviewed, discussed with Arabella Carpenter on 12/31/16. I agree with the above assessment and plan of care. rg Dictated by DIANA Royal for Jeffy Rosales MD cc: DIANA Royal MD [facility]
--- NOTE | 2016-12-31 17:20 | DISCHARGE SUMMARY ---
ADMISSION DATE: 12/28/2016 DISCHARGE DATE: 12/31/2016 CONSULTATIONS: Darci Preez MD with Urology. PERTINENT PROCEDURES: 1. CT of the chest, abdomen, and pelvis showed no pneumonia, basilar atelectasis, mildly prominent heart, nonspecific subcentimeter left lower lobe nodule, cholecystectomy, fatty liver infiltration, nonspecific hyperdense nodules within the liver, no bowel obstruction, normal appendix, no hydronephrosis. 2. Renal ultrasound: Normal. HOSPITAL COURSE: Mr. Leavitt is a 56-year-old, male with a history of gout, GERD, hypertension who presented to [place] ED with fever, chills and lethargy. The patient had been in bed for several days and had not been able to get up. His family members brought him to the ED. He was evaluated in the emergency room and noted to be in renal failure and was also hypotensive with an elevation in his white count with suspected sepsis. The patient was transferred to [facility] ICU where he was started on fluid resuscitation as well as blood cultures and IV antibiotics with a consultation for Nephrology. The patient had a normal renal ultrasound. It was felt that his acute kidney injury was secondary to ATN due to his hypotension, dehydration and his YANI inhibitor, and he had also recently been on Bactrim. His electrolytes and acid base remained stable. Dr. Perez was consulted for patient's urosepsis and urinary retention. He was started on Flomax. He will be discharged with his Yan catheter to gravity drainage and Dr. Perez will perform a voiding trial in 5-7 days which can be done outpatient after the patient has been discharged. Mr. Laevitt was transferred out of the ICU on 12/30/2016. His creatinine has gone from 10.9 to 2.3. VITAL SIGNS ON DISCHARGE: Temperature is 97.5 degrees, heart rate 61, respirations 21, blood pressure is 134/57, O2 is 100% on 2 L nasal cannula. DISCHARGE DIET: Healthy heart. DISCHARGE MEDICATIONS: 1. Tylenol 650 mg p.o. q.6 hours p.r.n. 2. Allopurinol 300 mg p.o. b.i.d. 3. Klonopin 1-2 mg p.o. at bedtime. 4. Catapres 0.2 mg p.o. t.i.d. p.r.n. 5. Valium 10 mg p.o. p.r.n. 6. Indocin XR 75 mg p.o. daily. 7. Zestril 20 mg p.o. daily. 8. Methadone 10 mg p.o. q.8 hours. 9. Prilosec 40 mg p.o. daily. 10. Percocet 10/325, 1-2 each p.o. q.6 hours p.r.n. 11. Prednisone 10 mg p.o. daily. 12. Flomax 0.4 mg p.o. b.i.d. FOLLOWUP: 1. Patient is discharged home with self-care with his Yan to drainage. 2. He can follow up with his primary care physician, Dr. Seay, in 7-10 [address] Perez in 1 week where he will do a voiding trial. 3. The patient can return to the ED for any worsening of symptoms. DISCHARGE TIME: 30 minutes. Dictated by DIANA Nguyen for Steven Alvares MD cc: Steven Alvares MD
--- NOTE | 2017-01-02 14:38 | Extremity Venous Study ---
PROCEDURE NAME: Venous U/S Right Leg - 12/28/2016 STUDY: Right lower extremity venous duplex study. REFERRING PHYSICIAN: Dread Roth MD READING PHYSICIAN: Bret Mancera MD [employer]: [place]. INDICATION: Right leg pain and swelling. FINDINGS: The deep and superficial veins of the right lower extremity were imaged throughout their course. All are compressible with forward flow. No thrombus is appreciated. INTERPRETATION: No evidence of deep or superficial venous thrombosis of the right lower extremity. cc: MD Dread Winkler MD
--- NOTE | 2017-02-17 17:22 | ED EKG INTERP ---
This chart was entered by Cyndie Park, acting as scribe for Davonte Rivera MD. EKG Interpretation - EKG Time of EKG reading by physician:: 17:38 EKG Read and Signed by:: Davonte Rivera EKG Interpretation (*Must complete 3 of following elements*): Abnormal (sinus tachycardia, left anterior fascicular block, abnormal ECG) Rate: 117 Rhythm: Sinus tachycardia ID Interval: normal ST Wave: normal This chart was documented by the indicated scribe, (Cyndie Park) and accurately reflects the services I performed and decisions made by me, Davonte Rivera MD, as attested by the provider's signature.
== END 2016-12-31 16:21 | disposition home or self-care (01) ==
LOC: P.ED 17:17 → SUATTDRO 21:20 → ICU 21:20 → 3N 12-30 05:06
PROVIDERS: ATTEND Internal Medicine

== ENCOUNTER 2017-03-28 20:09 | Inpatient (IN) ==
[2017-03-28] MEDS ORDERED: NS 1,000 ML ONE ×2 (20:34→23:48)
[2017-03-28] MEDS ORDERED: NS 1,000 ML IV ONE ×3 (21:02→23:20)
[2017-03-28] MEDS ORDERED: NS 500 ML IV ONE (21:02)
--- NOTE | 2017-03-28 21:04 | PROVIDER DOCUMENTATION ---
This chart was entered by Afshan Vegas Scribe, acting as scribe for Michael Rodriguez MD. HPI-Syncope/Dizziness - General Chief Complaint: Dizziness Stated Complaint: GENERAL Time Seen by Provider: 03/28/17 20:49 Source: patient Allergies/Adverse Reactions: Patient Allergies Allergy/AdvReac Type Severity Reaction Status Date / Time No Known Allergies Allergy Verified 03/28/17 20:22 Home Medications: Home Medication List Medication Instructions Recorded Confirmed Last Taken Type Methadone 10 mg PO Q8HR 12/16/14 03/28/17 03/18/17 History Allopurinol 600 mg PO DAILY 08/05/16 03/28/17 03/18/17 History Clonidine [Catapres] 0.2 mg PO TID PRN MDD 3 12/30/16 03/28/17 03/18/17 History Clonazepam [Klonopin] 1 - 2 mg PO HS #30 tablet MDD 2 12/31/16 03/28/17 Rx Cyclobenzaprine [Flexeril] 10 mg PO QHS 03/18/17 03/28/17 03/18/17 History Hydrocodone/Acetaminophen [Ogden 1 each PO BID 03/18/17 03/28/17 03/18/17 History 10-325 Tablet] Ondansetron HCl [Zofran] 8 mg PO TID PRN #10 tablet 03/18/17 03/28/17 Unknown Rx Allopurinol [Allopurinol] 100 mg PO DAILY 03/28/17 03/28/17 Unknown History Indomethacin 75 mg PO DAILY 03/28/17 03/28/17 Unknown History Tamsulosin [Flomax] 0.8 mg PO DAILY 03/28/17 03/28/17 Unknown History - History of Present Illness-Syncope/Dizzy Nature of Presenting Problem: 56 year old M with history of chronic pain who is followed at pain clinic in [place] (takes methadone),gout, and HTN who presents to the ED by POV with hypotension,lethargy,and worsening dizziness over past 3 weeks ago. Pt states that he has not been sleeping well. Friend states that pt blacked out and fell yesterday. Pt was seen 10 days ago for lower back pain at [facility] by Dr. De Los Santos for evaluation of confusion. Denies fever, chest pain, or SOB, Also complains of bilateral knee pain, currently wearing velcro knee support. Onset/Duration: reports: other (3 weeks) Timing: reports: still present Recently Seen Here or By Another Healthcare Provider: No - Dizziness Severity in ED: reports: mild Dizziness Related Current/Associated Symptoms: reports: dizzy Any recent trauma/injury?: reports: none Patient usually:: reports: walks without assistance Review of Systems - Adult - REVIEW OF SYSTEMS - ADULT Constitutional: denies: chills, fever Eyes: reports: no symptoms reported Ears, Nose, Mouth & Throat: reports: no symptoms reported Cardiovascular: denies: chest pain, palpitations Respiratory: denies: cough, shortness of breath Gastrointestinal: denies: nausea, vomiting Genitourinary: reports: no symptoms reported Musculoskeletal: reports: no symptoms reported Integumentary: reports: no symptoms reported Neurological: reports: dizziness/vertigo. denies: headache/migraines Psychiatric: reports: no symptoms reported Endocrine: reports: no symptoms reported Hematologic/Lymphatic: reports: no symptoms reported Allergic/Immunologic: reports: no symptoms reported All Other Systems: Reviewed and Negative Past History - Adult - PAST MEDICAL HISTORY-ADULT Review of Records: reports: Nursing Assessment Review, Medications Reviewed Major Childhood Illnesses: reports: denies history Cardiovascular: reports: HTN, hyperlipidemia Respiratory: reports: sleep apnea Gastrointestinal: reports: denies history Obstetrical/Gynecological: reports: denies history Genitourinary: reports: other (uti/pyleonephritis) Musculoskeletal: reports: arthritis (gouty), chronic pain Neurological: reports: denies history Psychiatric: reports: anxiety Endocrine/Immune: reports: denies history Other Conditions: reports: skin disorder - PRIOR SURGERIES/PROCEDURES Surgical/Procedure History: reports: cholecystectomy, orthopedic (extremity) - IMMUNIZATION STATUS Childhood Immunizations: See Nurse Assessment Flu Vaccine: See Nurse Assessment - FAMILY HISTORY Family History: reviewed, not pertinent - SOCIAL HISTORY Smoking: non-smoker Substance Use: none/never Alcohol Use Frequency: never Physical Exam-General - PHYSICAL EXAM-ADULT Initial Vital Signs Reviewed: Yes - CONSTITUTIONAL General Appearance: alert, obese, other (poor historian, rambling with poor recall, drowsy) - EYES Eyes: PERRL/EOMI, pink conjunctivae - HEAD, EARS, NOSE, MOUTH & THROAT HENMT: other (dry oral mucosa) - RESPIRATORY Respiratory: chest non-tender, lungs clear, normal breath sounds - CARDIOVASCULAR Cardiovascular: normal peripheral pulses, regular rate, rhythm, no edema - GASTROINTESTINAL (ABDOMEN) Abdominal Exam: normal bowel sounds, non tender, soft - SKIN Integumentary: ecchymosis (bilateral lower extremities) Progress - PLAN OF CARE/RESULTS Progress/Plan/Lab Results: Vital Signs - 8 hr 03/28/17 20:12 03/28/17 20:29 03/28/17 21:58 Temperature 96 F L Pulse Rate 114 H 102 H Respiratory Rate 16 18 Blood Pressure 67/37 104/58 O2 Sat by Pulse Oximetry 94 L 03/28/17 22:58 03/28/17 23:05 Temperature Pulse Rate 109 H Respiratory Rate 16 Blood Pressure 100/57 O2 Sat by Pulse Oximetry 92 L 94 L Laboratory Results - last 24 hr 03/28/17 03/28/17 03/28/17 20:43 20:43 20:43 WBC RBC Hgb Hct MCV MCH MCHC RDW Std Deviation Plt Count MPV Immature Gran % (Auto) Neut % (Auto) Lymph % (Auto) Polk % (Auto) Eos % (Auto) Baso % (Auto) Immature Gran # (Auto) Neut # (Auto) Lymph # (Auto) Polk # (Auto) Eos # (Auto) Baso # (Auto) PT INR APTT (Factor Assay) Specimen Type Sample Site pH pCO2 pO2 HCO3 Base Excess Oxyhemoglobin ABG O2 Sat (Calculated) ABG O2 Saturation ABG Carboxyhemoglobin ABG Methemoglobin Celestine Test A-a O2 Difference Total Hemoglobin Lactate Blood Gas Modality FiO2 % Sodium 134 L Potassium 4.4 Chloride 92 L Carbon Dioxide 27 Anion Gap 16 BUN 33 H Creatinine 7.2 H Estimated GFR/1.73 m2 8 BUN/Creatinine Ratio 5 Glucose 167 H Calculated Osmolality 279 Calcium 10.1 Total Bilirubin 0.30 AST 23 ALT 11 Alkaline Phosphatase 95 Creatine Kinase 24 Troponin T 0.021 Total Protein 7.2 Albumin 3.2 L Globulin 4.0 Albumin/Globulin Ratio 1.0 Plasma Lactate Urine Source Urine Color Urine Clarity Urine pH Ur Specific [place] Urine Protein Urine Ketones Urine Blood Urine Nitrite Urine Bilirubin Urine Urobilinogen Urine Microscopic RBC Urine WBC Urine Microscopic WBC Ur Epithelial Cells Urine Crystals Urine Bacteria Urine Casts Urine Yeast Urine Glucose Urine Opiates Screen Ur Oxycodone Screen Urine Methadone Screen Ur Barbituates Screen Ur Tricyclics Screen Ur Phencyclidine Scrn Ur Amphetamines Screen U Methamphetamines Scrn Urine MDMA Screen U Benzodiazepines Scrn Urine Cocaine Screen U Cannabinoids Screen Plasma/Serum Ethyl Alc 03/28/17 03/28/17 03/28/17 20:43 20:43 20:55 WBC 13.81 H RBC 4.06 L Hgb 11.7 L Hct 37.0 L MCV 91.1 MCH 28.8 MCHC 31.6 L RDW Std Deviation 13.9 Plt Count 613 H MPV 9.6 Immature Gran % (Auto) 1.1 H Neut % (Auto) 69.1 Lymph % (Auto) 17.4 L Polk % (Auto) 7.4 Eos % (Auto) 4.3 Baso % (Auto) 0.7 Immature Gran # (Auto) 0.15 H Neut # (Auto) 9.54 H Lymph # (Auto) 2.40 Polk # (Auto) 1.02 H Eos # (Auto) 0.60 Baso # (Auto) 0.10 PT 15.3 INR 1.18 H APTT (Factor Assay) 47.4 H Specimen Type ARTERIAL Sample Site R BRACHIAL pH 7.36 pCO2 52 H* pO2 80 HCO3 27.3 H Base Excess 3.1 H Oxyhemoglobin 94.0 L ABG O2 Sat (Calculated) 14.9 L ABG O2 Saturation 97.9 ABG Carboxyhemoglobin 2.30 ABG Methemoglobin 1.8 H Celestine Test NO A-a O2 Difference 55.0 Total Hemoglobin 11.2 L Lactate 1.40 Blood Gas Modality CANNULA FiO2 % 28.0 Sodium Potassium Chloride Carbon Dioxide Anion Gap BUN Creatinine Estimated GFR/1.73 m2 BUN/Creatinine Ratio Glucose Calculated Osmolality Calcium Total Bilirubin AST ALT Alkaline Phosphatase Creatine Kinase Troponin T Total Protein Albumin Globulin Albumin/Globulin Ratio Plasma Lactate Urine Source Urine Color Urine Clarity Urine pH Ur Specific [place] Urine Protein Urine Ketones Urine Blood Urine Nitrite Urine Bilirubin Urine Urobilinogen Urine Microscopic RBC Urine WBC Urine Microscopic WBC Ur Epithelial Cells Urine Crystals Urine Bacteria Urine Casts Urine Yeast Urine Glucose Urine Opiates Screen Ur Oxycodone Screen Urine Methadone Screen Ur Barbituates Screen Ur Tricyclics Screen Ur Phencyclidine Scrn Ur Amphetamines Screen U Methamphetamines Scrn Urine MDMA Screen U Benzodiazepines Scrn Urine Cocaine Screen U Cannabinoids Screen Plasma/Serum Ethyl Alc 03/28/17 03/28/17 03/28/17 21:24 21:45 21:45 WBC RBC Hgb Hct MCV MCH MCHC RDW Std Deviation Plt Count MPV Immature Gran % (Auto) Neut % (Auto) Lymph % (Auto) [place]k % (Auto) Eos % (Auto) Baso % (Auto) Immature Gran # (Auto) Neut # (Auto) Lymph # (Auto) [place]k # (Auto) Eos # (Auto) Baso # (Auto) PT INR APTT (Factor Assay) Specimen Type Sample Site pH pCO2 pO2 HCO3 Base Excess Oxyhemoglobin ABG O2 Sat (Calculated) ABG O2 Saturation ABG Carboxyhemoglobin ABG Methemoglobin [place] Test A-a O2 Difference Total Hemoglobin Lactate Blood Gas Modality FiO2 % Sodium Potassium Chloride Carbon Dioxide Anion Gap BUN Creatinine Estimated GFR/1.73 m2 BUN/Creatinine Ratio Glucose Calculated Osmolality Calcium Total Bilirubin AST ALT Alkaline Phosphatase Creatine Kinase Troponin T Total Protein Albumin Globulin Albumin/Globulin Ratio Plasma Lactate 1.7 Urine Source CLEAN CATCH Urine Color BROWN Urine Clarity VERY CLOUDY A Urine pH 5.0 Ur Specific [place] 1.025 Urine Protein TRACE A Urine Ketones TRACE Urine Blood NEGATIVE Urine Nitrite POSITIVE A Urine Bilirubin 2+ A Urine Urobilinogen 1+(1 mg/dL) Urine Microscopic RBC TNTC A Urine WBC 1+ A Urine Microscopic WBC 10-20 A Ur Epithelial Cells <10 Urine Crystals NONE SEEN Urine Bacteria 1+ Urine Casts NONE SEEN Urine Yeast PRESENT Urine Glucose NEGATIVE Urine Opiates Screen PRESUMPTIVE POSITIVE A Ur Oxycodone Screen NONE DETECTED Urine Methadone Screen PRESUMPTIVE POSITIVE A Ur Barbituates Screen NONE DETECTED Ur Tricyclics Screen PRESUMPTIVE POSITIVE A Ur Phencyclidine Scrn NONE DETECTED Ur Amphetamines Screen NONE DETECTED U Methamphetamines Scrn PRESUMPTIVE POSITIVE A Urine MDMA Screen NONE DETECTED U Benzodiazepines Scrn PRESUMPTIVE POSITIVE A Urine Cocaine Screen NONE DETECTED U Cannabinoids Screen NONE DETECTED Plasma/Serum Ethyl Alc Orders Category Date Time Status Cardiac Monitoring DIRECTED Care 03/28/17 21:01 Active Yan Cath Insertion ORDERED Care 03/28/17 21:02 Active Intake and Output-Strict ORDERED Care 03/28/17 21:02 Active Oxygen Therapy- ED Nursing DIRECTED Care 03/28/17 21:01 Active Repeat Vital Signs .Blood Pressure Care 03/28/17 21:02 Active Repeat Vital Signs .Heart Rate Care 03/28/17 21:02 Active Repeat Vital Signs .Oxygen Saturation Care 03/28/17 21:02 Active Repeat Vital Signs .Respiratory Rate Care 03/28/17 21:02 Active Repeat Vital Signs .Temp Care 03/28/17 21:02 Active SLED Misc. NRSG Orders DIRECTED Care 03/28/17 21:03 Active Saline Loc NOW Care 03/28/17 21:01 Active CHEST-PORTABLE [RAD] Stat Exams 03/28/17 21:01 Taken HEAD W/O CONTRAST [CT] Stat Exams 03/28/17 21:02 Taken KNEE 3 VIEWS LEFT [RAD] Stat Exams 03/28/17 21:17 Taken KNEE 3 VIEWS RIGHT [RAD] Stat Exams 03/28/17 21:18 Taken ABG [RESP] Routine Lab 03/28/17 20:55 Completed ALCOHOL BLOOD Stat Lab 03/28/17 20:43 Completed CBC WITH ELECTRONIC DIFF [HEME] Stat Lab 03/28/17 20:43 Completed CK PROFILE [SP CHEM] Stat Lab 03/28/17 20:43 Completed COMPREHENSIVE METABOLIC PANEL [CHEM] Stat Lab 03/28/17 20:43 Completed LACTATE, PLASMA [CHEM] Stat Lab 03/28/17 21:24 Completed [address]IME WITH INR PL [COAG] Stat Lab 03/28/17 20:[address] [COAG] Stat Lab 03/28/17 20:43 Completed TROPONIN T Stat Lab 03/28/17 20:[address] W/POSS RFLX CULT [URINALYSIS] Stat Lab 03/28/17 21:45 Completed URINE CULTURE [RM] Routine Lab 03/28/17 22:31 Ordered URINE DRUG SCREEN [address] Stat Lab 03/28/17 21:45 Completed 0.9% Sodium Chloride Inj [Ns] 1,000 ml Med 03/28/17 20:34 Discontinued .ROUTE As Directed 0.9% Sodium Chloride Inj [Ns] 1,000 ml Med 03/28/17 21:02 Discontinued IV As Directed 0.9% Sodium Chloride Inj [Ns] 500 ml Med 03/28/17 21:02 Discontinued IV 999 mls/hr CefTRIAXONE 1 GM/NS [Rocephin 1 gm/Ns] Med 03/28/17 23:08 Active 1 gm in 50 ml IV NOW Pulse Oximetry Stat Oth 03/28/17 21:01 Active EKG [EKG] Stat Ther 03/28/17 21:01 Ordered Result Diagrams: 03/28/17 20:43 03/28/17 20:43 - EKG 1 Time of EKG reading by physician:: 20:40 EKG Read and Signed by:: Michael Rodriguez EKG Interpretation (*Must complete 3 of following elements*): Normal Rate: 114 Rhythm: sinus tachycardia [place]: normal - CONSULTS/PCP/HOSPITALIST Notification #1 *Consult/PCP/Hospitalist*: Dr. Juarez, hospitalist Time Discussed: 23:05 Consult Disposition: Admit Departure - Departure Date of Disposition Decision: 03/28/17 Time of Disposition Decision: 23:16 DIAGNOSIS: Dehydration, Substance abuse Acute kidney failure Qualifiers: Acute renal failure type: unspecified Qualified Code(s): N17.9 - Acute kidney failure, unspecified Hypotension Qualifiers: Hypotension type: other hypotension type Qualified Code(s): I95.89 - Other hypotension UTI (urinary tract infection) Qualifiers: Urinary tract infection type: site unspecified Hematuria presence: with hematuria Qualified Code(s): N39.0 - Urinary tract infection, site not specified Disposition: ADMITTED INPATIENT 09 Certified Medical Emergency: Emergent Condition: Critical Referrals and Follow-Ups: Zach Seay MD [Primary Care Provider] - - Critical Care Note This patient required my direct & personal management of CC.: Yes This chart was documented by the indicated scribe, (Afshan Vegas Scribe) and accurately reflects the services I performed and decisions made by me, Michael Rodriguez MD, as attested by the provider's signature.
[2017-03-28 21:18] LABS: BLOOD TYPE ARTERIAL; SAMPLE BLOOD
[2017-03-28 21:19] LABS: BE 3.1 mmoll (-3.0-3.0); DRAW SITE R BRACHIAL; METHB 1.8 % (0.0-1.5); O2(CT) 14.9 mL/dL (15.0-23.0); PO2(98.6) 80 mmHg (60-100); SAO2 97.9 % (95.0-100.0); THB 11.2 g/dL (11.5-17.4); pH(98.6) 7.36 (7.35-7.45)
[2017-03-28 21:21] LABS: BASO% 0.7 % (0.0-0.8); EOS% 4.3 % (0.0-10.0); HEMOGLOBIN 11.7 g/dL (14.0-18.0); IMM GRAN# 0.15 X1000 (0.0-0.04); IMM GRAN% 1.1 % (0.0-0.5); LYMPH% 17.4 % (20.5-51.1); MANUAL DIFF NEEDED? NO; MCH 28.8 PG (27-31); MCHC 31.6 g/dL (33-37); MCV 91.1 FL (81-99); MONO# 1.02 X1000 (0.11-0.59); MONO% 7.4 % (1.7-9.3); MPV 9.6 FL (7.4-10.4); NEUT% 69.1 % (42.2-75.2); PLT 613 X1000 (130-400); RBC 4.06 XMIL (4.7-6.1)
[2017-03-28 21:38] LABS: INR 1.18 (0.86-1.15); PROTIME 15.3 Seconds (12.1-15.5)
[2017-03-28 21:39] LABS: PTT PL 47.4 Seconds (22.6-43.9)
[2017-03-28 21:40] LABS: ALLEN TEST NO; MODALITY CANNULA; PCO2(98.6) 52 mmHg (35-45)
[2017-03-28 21:53] LABS: ALBUMIN 3.2 g/dL (3.5-5.0); CALCIUM 10.1 mg/dL (8.8-10.2); POTASSIUM 4.4 mmol/L (3.5-5.1); TOTAL BILIRUBIN 0.3 mg/dL (0.20-1.00); TOTAL PROTEIN 7.2 g/dL (6.3-8.3)
[2017-03-28 22:18] LABS: BILIRUBIN URINE 2+ (NEGATIVE); BLOOD URINE NEGATIVE (NEGATIVE); CLARITY VERY CLOUDY (CLEAR); COLOR BROWN; GLUCOSE URINE NEGATIVE (NEGATIVE); LEUKOCYTES URINE 1+ (NEGATIVE); NITRITE URINE POSITIVE (NEGATIVE); PROTEIN URINE TRACE mg/dL (NEGATIVE); SP GRAVITY URINE 1.025; UROBILINOGEN URINE 1+(1 mg/dL)
[2017-03-28 22:24] LABS: UR AMPHETAMINES QUAL NONE DETECTED (NONE DETECT); UR BARBITUATES QUAL NONE DETECTED (NONE DETECT); UR BENZODIAZEPIN QUAL PRESUMPTIVE POSITIVE (NONE DETECT); UR CANNABINOIDS QUAL NONE DETECTED (NONE DETECT); UR COCAINE QUAL NONE DETECTED (NONE DETECT); UR MDMA QUAL NONE DETECTED (NONE DETECT); UR METHADONE QUAL PRESUMPTIVE POSITIVE (NONE DETECT); UR METHAMPHETAMINE QUAL PRESUMPTIVE POSITIVE (NONE DETECT); UR OPIATES QUAL PRESUMPTIVE POSITIVE (NONE DETECT); UR OXYCODONE QUAL NONE DETECTED (NONE DETECT); UR PCP QUAL NONE DETECTED (NONE DETECT); UR TCA QUAL PRESUMPTIVE POSITIVE (NONE DETECT)
[2017-03-28 22:31] LABS: URINE CAST NONE SEEN /LPF; URINE CRYSTAL NONE SEEN /HPF; URINE CULTURE PL NEEDED? YES; URINE EPITHELIAL CELLS <10 /HPF (<10); URINE RBC TNTC /HPF (<10); URINE SOURCE CLEAN CATCH
[2017-03-28] MEDS ORDERED: ROCEPHIN 1 GM/NS 1 GM/50 ML IVPB IV ONE (23:08)
[2017-03-28] MEDS ORDERED: ZOSYN 4.5 GM/NS 4.5 GM/100 ML IVPB ONE (23:47)
[2017-03-29] MEDS: ZOSYN 2.25 GM/NS 2.25 GM/50 ML IVPB IV SCH ×3 (00:01→11:49)
--- NOTE | 2017-03-29 00:41 | EKG Report ---
Test Performed on : 03/28/2017 8:40:05 PM Test Reason : AMS Blood Pressure : / mmHG Vent. Rate : 114 BPM Atrial Rate : 114 BPM P-R Int : 176 ms QRS Dur : 094 ms QT Int : 334 ms P-R-T Axes : 051 -23 078 degrees QTc Int : 460 ms Sinus tachycardia. Otherwise normal ECG When compared with ECG of 28-DEC-2016 17:38, No significant change was found Unconfirmed Result
[2017-03-29 01:24] LABS: BILIRUBIN URINE 2+ (NEGATIVE); BLOOD URINE TRACE (NEGATIVE); CLARITY VERY CLOUDY (CLEAR); COLOR YELLOW; GLUCOSE URINE NEGATIVE (NEGATIVE); LEUKOCYTES URINE 1+ (NEGATIVE); NITRITE URINE NEGATIVE (NEGATIVE); PROTEIN URINE 1+(30 mg/dL) mg/dL (NEGATIVE); SP GRAVITY URINE 1.025; URINE SOURCE CATH; UROBILINOGEN URINE 1+(1 mg/dL)
[2017-03-29 02:27] LABS: URINE CULTURE PL NEEDED? YES; URINE EPITHELIAL CELLS <10 /HPF (<10); URINE RBC <10 /HPF (<10); URINE WBC <10 /HPF (<10)
[2017-03-29 02:46] LABS: BE 2.9 mmoll (-3.0-3.0); BLOOD TYPE ARTERIAL; DRAW SITE R BRACHIAL; METHB 1.4 % (0.0-1.5); O2(CT) 14.4 mL/dL (15.0-23.0); PO2(98.6) 241 mmHg (60-100); SAMPLE BLOOD; SAO2 100.5 % (95.0-100.0); THB 10.1 g/dL (11.5-17.4); pH(98.6) 7.31 (7.35-7.45)
[2017-03-29 02:52] LABS: ALLEN TEST NO; MODALITY NRB; PCO2(98.6) 60 mmHg (35-45)
[2017-03-29] MEDS ORDERED: LEVOPHED 8 MG in D5 1/2 NS 250 ML IV SCH ×2 (03:45→17:00)
[2017-03-29] MEDS: NS 1,000 ML IV SCH ×4 (06:18→17:16)
--- NOTE | 2017-03-29 08:51 | Diag Imaging Result Doc PS360 ---
EXAM: HEAD W/O CONTRAST TECHNIQUE: Dose reduction protocol was used. INDICATION: AMS COMPARISON: 03/18/2017 FINDINGS: There is no definite acute infarct given the limited sensitivity of CT versus MRI. There is no discrete intracranial mass, mass effect, or intracranial hemorrhage. The surrounding soft tissues and bony structures are essentially unremarkable. IMPRESSION: No evidence of acute intracranial pathology. Electronically signed by Lionel Champion 03/29/2017 8:49 AM
[2017-03-29 09:41] LABS: HEMATOCRIT 33.6 % (42.0-52.0); HEMOGLOBIN 10.6 g/dL (14.0-18.0); MCH 29.4 PG (27-31); MCHC 31.5 g/dL (33-37); MCV 93.3 FL (81-99); RBC 3.6 XMIL (4.7-6.1)
[2017-03-29 10:31] LABS: ALBUMIN 2.7 g/dL (3.5-5.0); CALCIUM 8.5 mg/dL (8.8-10.2); POTASSIUM 4.1 mmol/L (3.5-5.1); TOTAL BILIRUBIN 0.2 mg/dL (0.20-1.00); TOTAL PROTEIN 5.2 g/dL (6.3-8.3)
--- NOTE | 2017-03-29 10:56 | Diag Imaging Result Doc PS360 ---
EXAM: KNEE 3 VIEWS LEFT INDICATION: knee pain TECHNIQUE: 3 views COMPARISON: None. FINDINGS: There is tricompartmental degenerative change with marginal osteophyte formation, worse at the patellofemoral compartment. The joint spaces appear to be relatively well preserved. There is a nonspecific lucency at the lateral tibial plateau that probably represents a subcortical degenerative cyst. There are degenerative enthesophytes at the inferior aspect of the patella and at the tibial tuberosity. There is no discrete fracture, dislocation, or significant intrinsic osseous lesion, otherwise. There is suggestion of mild soft tissue edema around the knee. IMPRESSION: Extensive chronic bony changes but no evidence of acute osseous abnormality. Electronically signed by Lionel Champion 03/29/2017 10:53 AM
--- NOTE | 2017-03-29 11:01 | Diag Imaging Result Doc PS360 ---
EXAM: KNEE 3 VIEWS RIGHT INDICATION: knee pain TECHNIQUE: 3 views COMPARISON: None. FINDINGS: There is tricompartmental degenerative arthropathy with marginal osteophyte formation, worse at the patellofemoral compartment. The medial and lateral compartment joint spaces are relatively well-preserved. There appears to be a subcortical degenerative cyst at the lateral tibial plateau. There are enthesophytes at the inferior aspect of the patella and at the tibial tuberosity. There is no discrete fracture, dislocation, or significant intrinsic osseous lesion, otherwise. There is suggestion of mild soft tissue edema around the knee. IMPRESSION: Fairly extensive chronic osseous changes but no evidence of acute osseous abnormality. Electronically signed by Lionel Champion 03/29/2017 10:58 AM
--- NOTE | 2017-03-29 11:07 | Diag Imaging Result Doc PS360 ---
EXAM: CHEST-PORTABLE INDICATION: AMS TECHNIQUE: One view COMPARISON: 03/18/2017 FINDINGS: Inspiration is suboptimal. There is evidence of prior granulomatous disease, stable. No new consolidations are identified. There is no discrete pleural fluid collection or pneumothorax. Cardiac silhouette is stable. IMPRESSION: Lower lung volumes but grossly stable chest, otherwise. Electronically signed by Lionel Champion 03/29/2017 11:05 AM
[2017-03-29] MEDS ORDERED: LASIX IV ONE (13:08)
[2017-03-29] MEDS ORDERED: NS 1,000 ML IV SCH ×2 (14:13→17:00)
[2017-03-29] MEDS ORDERED: DIFLUCAN 100 MG/NS 100 MG/50 ML IVPB IV ONE (15:16)
--- NOTE | 2017-03-29 16:48 | HISTORY AND PHYSICAL ---
PRIMARY CARE PHYSICIAN: Dr. Zach Seay. CHIEF COMPLAINT: Dizziness and falling. HPI: This is a 56-year-old male with a history of gout, chronic opiate abuse on methadone and hypertension who presented to the emergency room by POB with family members stating that the patient has had dizziness that has been worsening over the past 3 weeks and that he has not been sleeping well. According to the chart a friend stated that the patient blacked out and fell yesterday and reportedly he fell twice prior to coming to the emergency room. At the time of exam the patient is very lethargic. He will wake to verbal stimuli. He frequently falls back asleep during conversation. He will attempt to answer some questions although they are mostly with a 1 word or 1 syllable answer. There is a family member at the bedside who can give no history. On arrival to the emergency room his blood pressure was 67/37 with a heart rate of 114. He was given IV hydration and pressures did increase to the [address] of the head was performed that revealed no evidence of acute intracranial pathology. Bilateral knees were x-rayed and it revealed no acute processes. He was found to have a white count of 13. Blood cultures, urine cultures were drawn and he was given Rocephin and Zosyn and admitted for further evaluation and treatment. PAST MEDICAL HISTORY: Is obtained from hospital records includes gout, anxiety disorder, back pain, gastroesophageal reflux disease and hypertension. He has chronic back pain on chronic methadone use per a pain clinic. PAST SURGICAL HISTORY: Left elbow, cholecystectomy and bilateral carpal tunnel. ALLERGIES: No known drug allergies. HOME MEDICATIONS: A list will be obtained. SOCIAL HISTORY: He denies alcohol, tobacco, or illicit drug use. REVIEW OF SYSTEMS: Is unable to obtain from the patient. PHYSICAL EXAMINATION: GENERAL: This is a 56-year-old male who is sitting up in the bed lethargic but in no distress. VITAL SIGNS: Blood pressure is 112/48 with a heart rate of 96, respirations are 16, temperature is 97.4 degrees with O2 saturations of 97-99% on 3 L nasal cannula. HEENT: Head is normocephalic, atraumatic. Pupils are equal, round, react to light. EOMs are intact. Sclerae anicteric. Mucous membranes are dry. NECK: Supple with trachea midline. CARDIOVASCULAR: Regular rate and rhythm, S1 and S2 appreciated. PULMONARY: Breath sounds are clear, diminished in the bases with no increased work of breathing noted. Chest does rise and fall symmetrically with respiration. GASTROINTESTINAL: Abdomen soft, nontender, nondistended with bowel sounds in all 4 quadrants. MUSCULOSKELETAL: He does move his extremities at random. EXTREMITIES: No clubbing, cyanosis. He does have bilateral pretibial and pedal edema. NEUROLOGIC: He is lethargic. He will wake to stimuli, he will tell his 1st name, he will sometimes state his birthday. DIAGNOSTICS: WBC is 13.81 with hemoglobin 11.7, hematocrit 37 and platelets 613,000. Sodium is 134, potassium 4.4, BUN 33, creatinine 7.2 with a glucose of 167, ABGs pH is 7.36 with a pCO2 of 52, PO2 of 80 and bicarb of 27.3. Urinalysis. Voided urine reveals positive nitrite, too numerous to count red blood cells and 10-20 white blood cells with yeast present. Catheter urine revealed less than 10 red blood cells, less than 10 microscopic white blood cells with yeast present. CT of the head revealed no acute processes as well as bilateral knee x-rays. Chest x-ray revealed low lung volumes, no consolidations, no discrete pleural fluid collection or pneumothorax. Cardiac silhouette is stable. Urine culture is pending. Urine drug screen was positive for opiates, methadone tricyclics, methamphetamines, benzodiazepines. Blood alcohol was none detected. ASSESSMENT AND PLAN: 1. Altered mental status. 2. Acute kidney injury. 3. Hypotension. 4. Urinary tract infection. 5. Hypoxemia. 6. Polysubstance use. 7. Hypertension. 8. Gout. PLAN: Patient has been admitted to ICU. We will continue with close monitoring. He will be placed on telemetry with supplemental oxygen as needed. Will get neuro checks. Will continue with IV hydration as well as Levophed. Will hold his home medications, renal dose all medications. We will continue Zosyn and once urine culture returns antibiotics may be changed as appropriate to results. We will continue SCDs for DVT prophylaxis holding off on any anticoagulation as the patient has had frequent falls and we are unsure of mechanism or any injuries that we cannot see. We will use Protonix for GI prophylaxis. The patient is lethargic and he is really unable to give a history. There is a friend in the room who cannot give any health history only the fact that he saw the patient fall day before yesterday. Hopefully more family members will come in we can get a more clear picture. We will call Dr. Rosales. further treatments pending hospital course. Dictated by DIANA Felton for Ismael Juarez MD cc: DIANA Felton MD
[2017-03-29] MEDS ORDERED: NS 2,000 ML ONE (16:58)
[2017-03-29] MEDS ORDERED: NS NEB INH SCH (17:15)
[2017-03-29 17:32] LABS: URINE SOURCE CATH
[2017-03-29 17:48] LABS: BILIRUBIN URINE NEGATIVE (NEGATIVE); BLOOD URINE NEGATIVE (NEGATIVE); COLOR STRAW; GLUCOSE URINE NEGATIVE (NEGATIVE); LEUKOCYTES URINE SMALL (NEGATIVE); NITRITE URINE NEGATIVE (NEGATIVE); PROTEIN URINE NEGATIVE (NEGATIVE); SP GRAVITY URINE 1.006; TURBIDITY URINE CLEAR (CLEAR); URINE MICRO REVIEW NEEDED? YES; UROBILINOGEN URINE NORMAL (NORMAL)
[2017-03-29 17:54] LABS: UR EPITHELIAL CELLS <10 /HPF (<10); URINE BACTERIA NEGATIVE /HPF; URINE RBC <10 /HPF (<10)
[2017-03-29] MEDS ORDERED: ZOSYN 2.25 GM/NS 2.25 GM/50 ML IVPB IV SCH (18:00)
[2017-03-29 18:14] LABS: UR CREAT RANDOM 54.7 mg/dL (14-26); UR PROT RANDOM 9.2 mg/dL
[2017-03-29 18:28] LABS: CALCIUM 8.9 mg/dL (8.8-10.2); POTASSIUM 4.9 mmol/L (3.5-5.1)
--- NOTE | 2017-03-29 18:46 | Diag Imaging Result Doc PS360 ---
EXAM: THORAX/ABDOMEN/PELVIS W/O CONT INDICATION: abdominal pain TECHNIQUE: Dose reduction protocol was used. COMPARISON: 12/29/2016 FINDINGS: CHEST: There is bilateral dependent atelectasis, mainly at the bases. There is mild atelectasis at the right lung apex as well. There are couple calcified granulomata bilaterally. There are no pleural fluid collections and no pneumothorax. The small nodular density at the superior aspect of the left lower lobe is not identified on the current study. There are calcified mediastinal and right hilar lymph nodes indicating prior granulomatous disease. There is no evidence of significant lymphadenopathy, otherwise. ABDOMEN/PELVIS: There has been a previous cholecystectomy. There is extensive diffuse hepatic steatosis similar to the previous study. There are several hyperdense nodular opacities in the liver that are stable. The largest is in the right hepatic lobe posteriorly measuring up to 2.8 cm on image 37 of series 3. These actually probably represent regions of focal fatty sparing rather than true nodules. However, MRI or contrast-enhanced CT would probably be helpful to further characterize these lesions. There are couple calcified granulomata in the spleen. The adrenal glands and pancreas are unremarkable. There is a stable intermediate density right renal nodule measuring up to 1.6 cm. This may represent a blood filled cyst. Follow-up with contrast-enhanced CT or renal ultrasound is recommended. No renal or ureteral stones are appreciated and there is no hydronephrosis. Urinary bladder is decompressed and there is a Yan catheter in the lumen. The appendix is normal. The GI tract is grossly unremarkable. No focal inflammatory change, free abdominal gas, or free fluid is appreciated. IMPRESSION: 1.Bilateral subsegmental atelectasis. Otherwise, no evidence of acute chest pathology. 2.Diffuse fatty infiltration of the liver with stable higher density nodular foci within the liver parenchyma that probably represent regions of fatty sparing. Please see above discussion. 3.Stable intermediate density right renal nodule. Please see above discussion. 4.Other incidental/nonacute findings detailed above. Electronically signed by Lionel Champion 03/29/2017 6:44 PM
[2017-03-29] MEDS: HEPARIN SUBQ SCH (20:01)
[2017-03-29] MEDS: PEPCID IV SCH (20:01)
[2017-03-29] MEDS: XOPENEX NEB INH SCH (21:15)
[2017-03-29] MEDS: NORCO-10 PO PRN (21:59)
[2017-03-30] MEDS: NS 1,000 ML IV SCH ×5 (00:23→22:13)
[2017-03-30] MEDS: XOPENEX NEB INH SCH ×4 (03:26→21:12)
[2017-03-30 04:34] LABS: ALLEN TEST YES; BE -2.3 mmoll (-3.0-3.0); BLOOD TYPE ARTERIAL; DRAW SITE R RADIAL; METHB 0.8 % (0.0-1.5); O2(CT) 14.7 mL/dL (15.0-23.0); PO2(98.6) 93 mmHg (60-100); SAMPLE BLOOD; SAO2 99.4 % (95.0-100.0); THB 10.7 g/dL (11.5-17.4); pH(98.6) 7.28 (7.35-7.45)
[2017-03-30 04:36] LABS: MODALITY CANNULA; PCO2(98.6) 53 mmHg (35-45)
[2017-03-30 04:36] LABS: HEMATOCRIT 32.7 % (42.0-52.0); HEMOGLOBIN 10.1 g/dL (14.0-18.0); MCHC 30.9 g/dL (33-37); RBC 3.37 XMIL (4.7-6.1)
[2017-03-30 04:49] LABS: ALBUMIN 2.7 g/dL (3.5-5.0); CALCIUM 8.7 mg/dL (8.8-10.2); POTASSIUM 4.8 mmol/L (3.5-5.1)
[2017-03-30] MEDS: ATIVAN IV PRN ×2 (06:41→18:11)
[2017-03-30] MEDS: FLOMAX PO SCH (08:05)
[2017-03-30] MEDS: SODIUM CHLORIDE 0.9% INJ SCH (08:05)
[2017-03-30] MEDS: MERREM 500 MG in NS 50 ML IV SCH (08:05)
[2017-03-30] MEDS: HEPARIN SUBQ SCH ×2 (08:06→20:12)
[2017-03-30] MEDS: PEPCID IV SCH ×2 (08:06→20:12)
--- NOTE | 2017-03-30 08:25 | Diag Imaging Result Doc PS360 ---
EXAM: CHEST-PORTABLE INDICATION: dyspnea TECHNIQUE: One view COMPARISON: 03/28/2017 FINDINGS: Lung volumes remain low but there is slightly better inspiration. There is suggestion of minimal subsegmental atelectasis in the left lower lung zone that is similar to the previous study. No new consolidations are appreciated, otherwise. Cardiac silhouette is stable. IMPRESSION: Slightly better inspiration but essentially stable chest, otherwise. Electronically signed by Lionel Champion 03/30/2017 8:22 AM
[2017-03-30] MEDS ORDERED: HALDOL ONE (12:16)
[2017-03-30] MEDS: DIFLUCAN PO SCH (12:22)
[2017-03-30] MEDS ORDERED: HALDOL IV ONE (12:23)
--- NOTE | 2017-03-30 13:12 | Diag Imaging Result Doc PS360 ---
EXAM: US RENAL 2 (RETROPER) COMPLETE INDICATION: seema/arf TECHNIQUE: COMPARISON: 12/29/2016 FINDINGS: Kidneys are grossly normal in echotexture with no discrete renal mass or hydronephrosis. The right kidney measures 11.8 cm and the left kidney measures 12.1 cm in the greatest longitudinal axes. Right renal cortex measures up to 0.9 cm and the left renal cortex measures up to 1.0 cm in thickness. There is a Yan catheter in the urinary bladder and the bladder is nondistended. IMPRESSION: Unremarkable renal ultrasound. Electronically signed by Lionel Champion 03/30/2017 1:10 PM
--- NOTE | 2017-03-30 16:09 | PROGRESS NOTE ---
DATE: 03/30/2017 SUBJECTIVE: The patient has had frequent episodes of agitation today. He is only oriented to himself. OBJECTIVE: Vital Signs: Temperature 97.8 degrees, blood pressure 162/82, heart rate 106, respirations 16, O2 saturation is 99% on 2 L nasal cannula. General: This is a morbidly obese male, lying in bed, in no acute distress. Head: Normocephalic, atraumatic. Heart: S1, S2 normal. Tachycardic. Lungs: Clear to auscultation bilaterally. No crackles. No rales. Abdomen: Positive bowel sounds. Soft, obese, nontender, nondistended. Extremities: There is 2 to 3+ edema extending up to the knees and thighs. Neurologic: The patient is oriented to person only. He is able to move all 4 extremities. LABS: White blood cell count 9.9, hemoglobin 10, hematocrit 32, platelets 437,000. ABG, pH of 7.28, pCO2 53, PO2 93. Sodium 137, potassium 4.8, chloride 101, CO2 23, BUN 33, creatinine 4.9, glucose 115, phosphorus 5.1, calcium 8.7, albumin 2.7. Chest x-ray: Atelectasis. ASSESSMENT AND PLAN: 1. Metabolic encephalopathy. The etiology for the patient's confusion is unknown. The head CT was unremarkable. The patient's drug toxicology screen was positive for tricyclics which the patient is not taking as a prescription and methamphetamine. Will continue to monitor the patient's mental status closely for improvement. We will consult the neurologist for further recommendations. 2. Acute kidney injury. Slowly improving. The patient's urine output remained adequate. The patient does have significant swelling in his lower extremities so we will decrease the IV fluid rate. The parking attendant has been consulted. 3. Fatty liver disease. Aware. 4. Gouty arthritis. Aware. 5. Benign prostatic hypertrophy. Continue on Flomax. 6. Anxiety disorder. We will restart the patient's Klonopin. 7. Urinary tract infection secondary to yeast. We will start the patient on oral Diflucan. 8. Deep vein thrombosis prophylaxis. Continue on heparin 5000 units subcutaneous every 12 hours. The plan of care was discussed with the patient's family. cc: Whit Palacio MD
[2017-03-30] MEDS: HUMULIN R SUBQ SCH ×2 (17:35→20:08)
[2017-03-30] MEDS ORDERED: STERILE WATER INJ. INJ ONE (18:21)
[2017-03-30] MEDS ORDERED: GEODON IM ONE (18:21)
[2017-03-30] MEDS: HALDOL IM PRN (19:47)
[2017-03-30] MEDS: KLONOPIN PO SCH (20:12)
[2017-03-31] MEDS: ATIVAN IV PRN ×3 (00:19→22:02)
[2017-03-31] MEDS: HALDOL IM PRN ×2 (03:09→22:12)
[2017-03-31] MEDS: XOPENEX NEB INH SCH ×4 (03:24→21:15)
[2017-03-31 04:46] LABS: ALLEN TEST YES; BE -1.7 mmoll (-3.0-3.0); BLOOD TYPE ARTERIAL; DRAW SITE R RADIAL; METHB 0.8 % (0.0-1.5); O2(CT) 13.4 mL/dL (15.0-23.0); PCO2(98.6) 38 mmHg (35-45); PO2(98.6) 76 mmHg (60-100); SAMPLE BLOOD; SAO2 98.5 % (95.0-100.0); THB 9.9 g/dL (11.5-17.4); pH(98.6) 7.39 (7.35-7.45)
[2017-03-31 04:47] LABS: MODALITY CANNULA
[2017-03-31 05:26] LABS: IRON SATURATION 14 %; TIBC 195 ug/dL; TOTAL IRON 28 ug/dL (53-167); UNBOUND IRON 167 ug/dL (112-346)
[2017-03-31 05:49] LABS: HEMATOCRIT 32.7 % (42.0-52.0); HEMOGLOBIN 10.3 g/dL (14.0-18.0); MCH 29.7 PG (27-31); MCHC 31.5 g/dL (33-37); MCV 94.2 FL (81-99); MPV 9.7 FL (7.4-10.4); RBC 3.47 XMIL (4.7-6.1)
[2017-03-31] MEDS: HUMULIN R SUBQ SCH ×4 (06:08→20:16)
[2017-03-31 07:46] LABS: HEMOGLOBIN A1C 6.4 % (4.8-6.0)
[2017-03-31 08:02] LABS: ALBUMIN 2.6 g/dL (3.5-5.0); CALCIUM 9.5 mg/dL (8.8-10.2); POTASSIUM 5.2 mmol/L (3.5-5.1)
[2017-03-31 08:12] LABS: RETIC% 2.25 % (0.8-2.1); RETIC-HE 28.3 PG (28.2-36.6)
[2017-03-31 08:19] LABS: FERRITIN 405 ng/mL (30-400)
[2017-03-31] MEDS: FLOMAX PO SCH (09:11)
[2017-03-31] MEDS: DIFLUCAN PO SCH (09:11)
[2017-03-31] MEDS: HEPARIN SUBQ SCH ×2 (09:11→20:21)
[2017-03-31] MEDS: PEPCID IV SCH ×2 (09:11→20:22)
[2017-03-31] MEDS: SODIUM CHLORIDE 0.9% INJ SCH (09:12)
[2017-03-31] MEDS: MERREM 500 MG in NS 50 ML IV SCH (09:12)
--- NOTE | 2017-03-31 12:00 | CONSULTATION ---
DATE OF CONSULTATION: 03/31/2017 REASON FOR ADMISSION: Dizziness and falling, altered mental status, acute kidney injury, hypotension, urinary tract infection, hypoxemia, and polysubstance abuse. REASON FOR CONSULTATION: Acute kidney injury. HISTORY OF PRESENT ILLNESS: This is a 56-year-old gentleman with a history of hypertension, gout, opiate abuse, and methadone, who presented to the emergency room on day of admission secondary to dizziness and falling over the last 3 weeks. The patient apparently had blacked out twice. In the emergency room he was extremely lethargic. His blood pressure that time was 60s over 30 with a heart rate of 114. He was given some IV fluids and his pressures did increased to greater than 100 systolic. He was noted at that time to have a creatinine 6.1. He was also noted to have a white count of 13. Urine cultures were drawn and was given antibiotics, Rocephin, and Zosyn. Admitted for further treatment. Over the course of the hospitalization, was transferred over to [facility] for further workup and treatment. Creatinine has fallen from 4.9 and today is at 2.9. The patient has continued to be unable to give an appropriate history. He is currently in restraints and his responses are only to tactile and significant verbal stimuli and knows his name only. Patient does have a recent history of hospitalization back in December with an acute kidney injury, felt secondary to bladder outlet obstruction, dehydration, and concurrent ACI he use. His creatinine at that time improved to 1.4 and further research in his records indicate this is likely at baseline creatinine. We have been asked to see the patient for this acute kidney injury. PAST MEDICAL HISTORY: Gout, anxiety disorder, chronic pain on methadone, gastroesophageal reflux disease, hypertension, and back pain. SURGICAL HISTORY: Left elbow, cholecystectomy, and bilateral carpal tunnel. ALLERGIES: No known drug allergies. HOME MEDICATIONS: Methadone, allopurinol, Catapres, Klonopin, [place], Flexeril, Zofran, indomethacin, and Flomax. Flomax was started at his last hospitalization. FAMILY HISTORY: Unobtainable, unrelated to current hospitalization. SOCIAL HISTORY: He is on chronic pain use. Includes methadone and chronic narcotic use. REVIEW OF SYSTEMS: Unobtainable. PHYSICAL EXAMINATION: Vital Signs: Temperature 98.5 degrees, pulse 116, respiratory rate 20, blood pressure 150/59. Intake 2.6 L. Output 2.8 L. General: This is a middle -aged gentleman resting in bed. He is somewhat lethargic. Does open his eyes and moan and will state his name occasionally. He is in restraints. HEENT: Normocephalic, atraumatic. Conjunctivae pale. Oral mucosa dry. Neck: Supple. Trachea midline. Trace jugular venous distention in a reclined position. Cardiovascular: Regular rate and rhythm. No murmur or gallop is appreciated. Pulmonary: He has equal excursion. He has some decreased breath sounds to the bases. He is on O2 supplementation via nasal cannula. Abdomen: Round, soft, positive bowel sounds. Genitourinary: Not inspected. He has a Yan catheter. Extremities: He has pretibial and pedal edema, along with dependent edema to the backs of the thighs and hips. Some edema noted to the upper extremities. It appears dependent in nature. Skin: Pale, warm, and dry. Neurological: He is lethargic. LAB DATA: WBC of 10.3, hemoglobin 10.3, hematocrit 32.7, and platelet count of 443,000. Sodium 142, potassium 5.2, chloride 105, CO2 17. BUN 26, creatinine 2.9 (4.9, 6.1, 6.9 , and 7.2). Calcium 9.5, phosphorus 4.0, albumin 2.6. Iron 28, saturation 14. Ferritin 405 , B12 105, folate 6.1. Urinalysis bland on the . On the he did have trace protein, trace ketones, positive nitrate, 2+ bilirubin, too numerous to count WBCs. His FENA of 6.6%. IMAGING: Ultrasound grossly normal. Kidney size 11.8 and 12.1 cm. ASSESSMENT/PLAN: 1. Acute kidney injury with consistent improvement over the course of the hospitalization. He has likely some baseline chronic kidney disease. His kidney size larger than one would expect. His creatinine got down as low was 1.4. He has no indication for intervention at this time. We will continue current therapy and continue to follow labs. Likely his acute and chronic kidney disease has been exacerbated by a combination of hypoxia, hypotension, and fluid volume depletion. Antibiotics have been reviewed and he is on appropriate doses. 2. Electrolytes and acid-base balance. He has some mild acidosis. pCO2 yesterday was 53. We will make no adjustments today. 3. Altered mental status, multifocal. Followed by primary. 4. Polysubstance abuse. Followed by primary. Seen, data reviewed, discussed with Otis Cutler on 03/31/17. I agree with the above assessment and plan of care. rg Dictated by DIANA Black for Jeffy Rosales MD cc: Jeffy Rosales MD [facility]
[2017-03-31 12:18] LABS: UR AMPHETAMINES QUAL NONE DETECTED (NONE DETECT); UR BARBITUATES QUAL NONE DETECTED (NONE DETECT); UR BENZODIAZEPIN QUAL PRESUMPTIVE POSITIVE (NONE DETECT); UR CANNABINOIDS QUAL NONE DETECTED (NONE DETECT); UR COCAINE QUAL NONE DETECTED (NONE DETECT); UR METHADONE QUAL PRESUMPTIVE POSITIVE (NONE DETECT); UR OPIATES QUAL PRESUMPTIVE POSITIVE (NONE DETECT); UR OXYCODONE QUAL NONE DETECTED (NONE DETECT); UR PCP QUAL NONE DETECTED (NONE DETECT)
--- NOTE | 2017-03-31 13:13 | PROGRESS NOTE ---
DATE: 03/31/2017 SUBJECTIVE: Patient has no focal complaints, but is pretty much nonverbal or minimally. He does awake. He does open his eyes and look around, but apparently had some significant agitation yesterday. OBJECTIVE: Vital Signs: Blood pressure 162/72, heart rate 117, respiratory rate of 23, temperature 97.9, 95% on 3 L. Cardiovascular: Regular rate and rhythm. Pulmonary: Bilateral breath sounds. Clear to auscultation. GI: Soft, nontender, nondistended. Bowel sounds are positive. LABORATORY DATA: Hemoglobin and hematocrit 10 and 32. White count 10, platelets 443. Reticulocyte count is 225. ABG is okay. Potassium 5.2, BUN and creatinine are 26 and 2.9. A1c 6.4, ferritin 405. B12 of 1005, but folate is 6.1, but is not critically low. PROBLEM LIST: 1. Encephalopathy, toxic versus metabolic versus other. It is unclear what is going on primarily. He is folate deficient, but I do not think that is a major contributor. There is not any major infection. He does have a urinary tract infection, but he is getting treatment. His degree of azotemia is really not that significant to cause this degree of encephalopathy his urine drug screen was positive for opiates, methadone, tricyclics, methamphetamines and benzodiazepines, which he reportedly does not take methadone or methamphetamines. He seems to be okay, so I am not clear if this may be a drug associated issue. In any case, we will continue supportive care. Neurology is following and I will pursue MRI today if we can get it without him being too agitated. 2. Acute kidney injury. This seems to be improving. We will continue hydration and follow. 3. Fatty liver disease. Stable currently. 4. Urinary tract infection. We will continue antibiotics. He is on Diflucan, based on the urine culture. DISPOSITION: Pending his clinical improvement. cc: Ramiro Rodriguez MD
[2017-03-31] MEDS: NS 1,000 ML IV SCH (14:42)
[2017-03-31] MEDS: KLONOPIN PO SCH ×2 (20:31→21:19)
--- NOTE | 2017-03-31 21:53 | Extremity Venous Study ---
PROCEDURE NAME: Venous U/S Bilateral Legs - 03/30/2017 BILATERAL LOWER EXTREMITY VENOUS ULTRASOUND: RETURN TO FACTORY CLERK: Ashwin. REQUESTING PHYSICIAN: Whit Palacio MD INDICATION: Swelling. COMPARISON: 12/28/2016. FINDINGS: The deep and superficial veins of bilateral lower extremities were visualized along their course. All veins are compressible with forward flow. No evidence of intraluminal thrombus. SUMMARY: No significant change from previous exam with no deep or superficial venous thrombosis seen in bilateral lower extremities. cc: MD Whit Jose MD
[2017-03-31] MEDS: NORCO-10 PO PRN (22:12)
[2017-03-31] MEDS ORDERED: ATIVAN IV ONE (23:28)
[2017-03-31] MEDS: LABETALOL IV PRN (23:52)
[2017-04-01] MEDS: NS 1,000 ML IV SCH (00:27)
[2017-04-01] MEDS: ATIVAN IV PRN ×2 (01:47→03:54)
[2017-04-01] MEDS: XOPENEX NEB INH SCH ×4 (03:42→22:39)
[2017-04-01 05:11] LABS: ALBUMIN 3.1 g/dL (3.5-5.0)
--- NOTE | 2017-04-01 05:20 | CONSULTATION ---
DATE OF CONSULTATION: 03/31/2017 REQUESTING PHYSICIAN: Patient is seen in consultation at the request of Dr. Rodriguez REASON FOR CONSULTATION: Evaluation of altered mental status. HISTORY OF PRESENT ILLNESS: This is a 56-year-old male with a history of hypertension, opiate abuse, on methadone, who presented with reports of dizziness for the last 3 weeks and recent falls, possible periods of loss of consciousness on 2 events. He was quite lethargic in the emergency department. His blood pressure was noted to be 60s/30s, with a heart rate of 114. He had acute kidney injury, with a creatinine around 7. His white count was elevated. He has continued to be confused since his admission, although he was responding to tactile and verbal stimuli, and oriented to self. Yesterday, he required some restraints due to agitation. He is being treated for a UTI. PAST MEDICAL HISTORY: Gout, chronic pain, on methadone, substance abuse, anxiety disorder, GERD, hypertension, cholecystectomy, bilateral carpal tunnel. FAMILY HISTORY: Unobtainable. SOCIAL HISTORY: Unobtainable. REVIEW OF SYSTEMS: Unobtainable, as the patient is altered. ALLERGIES: No known drug allergies. HOME MEDICATIONS: Methadone, allopurinol, Catapres, Klonopin, [place], Flexeril, Zofran, and Flomax. PHYSICAL EXAMINATION: Vital Signs: He has been afebrile. His blood pressure was as low as 67/37 initially. Current pressure is 148/85. Pulse: He has been mildly tachycardic. Respirations 19. General: This is an obese male, supine in bed, with eyes closed. He does not respond to verbal stimulation. He does respond with the addition of moderate sternal rub, and opens his eyes, and looks over toward me. He quickly drifts back to sleep. He does not follow commands. He is not speaking or answering questions. HEENT: PERRL. Gaze is conjugate. Ocular movements are noted in the horizontal plane. Face is symmetric, with equal grimace. Extremities: He has been moving his extremities to painful stimulus equally. No clear asymmetry was noted. Neurologic: The reflexes are symmetric. Toes are downgoing. There is some withdrawal to stimulation. No clonus. Coordination and gait were untestable. DIAGNOSTICS: Noncontrast head CT on 03/28/2017 was personally reviewed. There were no acute findings. Chest, abdomen, and pelvis CT results are noted. His white count today is normalized at 10. Sodium of 142, BUN as high as 4, currently 26. Creatinine as high as 7.2, currently 2.9. A1c of 6.4, calcium 9.5, phosphorus 4. LFTs were not elevated. Ammonia 21. B12 1000. Folate mildly low at 6.1. Urinalysis cloudy. Small leukocytes, 10-20 whites, 1+ white blood cells, yeast. His toxicology was positive for opiates, methadone, tricyclics, methamphetamines, and benzodiazepines on admission. Alcohol was negative. ASSESSMENT AND PLAN: A 56-year-old male with a history of hypertension, chronic pain with opiate abuse, on methadone, who was admitted with dizziness and falling, as well as altered mental status. Noted to be hypotensive, with acute kidney injury. His encephalopathy systems seems to be multifactorial- toxic, metabolic, possibly substance ingestion based on his urine toxicology. I do not see any focal findings on his neurologic exam, which is reassuring, though I agree with the primary team's decision to obtain a brain MRI once he is able to tolerate this. The patient was pretty lethargic when I saw him, and this was after receiving some Ativan for MRI attempt which unfortunately he still did not tolerate due to agitation. I would limit sedating medications as able. If he does not improve, we could consider an EEG. Thank you for this consultation. cc: Umu Peña MD MTDD
[2017-04-01 05:47] LABS: HEMOGLOBIN 10.9 g/dL (14.0-18.0); MCH 29.9 PG (27-31); MCHC 32.1 g/dL (33-37); MCV 93.4 FL (81-99); MPV 9.6 FL (7.4-10.4); RBC 3.64 XMIL (4.7-6.1)
[2017-04-01] MEDS: HUMULIN R SUBQ SCH ×4 (06:13→21:30)
[2017-04-01] MEDS: MERREM 500 MG in NS 50 ML IV SCH (08:42)
[2017-04-01] MEDS: HEPARIN SUBQ SCH ×2 (08:42→20:07)
[2017-04-01] MEDS: PEPCID IV SCH (08:43)
[2017-04-01] MEDS: SODIUM CHLORIDE 0.9% INJ SCH (08:43)
[2017-04-01] MEDS ORDERED: STERILE WATER INJ. INJ PRN (10:47)
--- NOTE | 2017-04-01 11:14 | PROGRESS NOTE ---
DATE: 04/01/2017 SUBJECTIVE: The patient has no focal complaints but he is very minimally awake but he does awaken. I could not get very much out of him yesterday. But today he way he wakes up. He tracks with his eyes. He does try to verbally communicate. Apparently got very agitated last night and was put on multiple medications. OBJECTIVE: Blood pressure 113/69, heart rate 106, respiratory rate of 23, temp 98.4 degrees, 99% on 3 L.Cardiovascular: Regular rate and rhythm. Pulmonary: Bilateral breath sounds. Clear to auscultation. GI: Soft, nontender, nondistended. Bowel sounds are positive. Extremities: No clubbing or cyanosis. He does appear to be edematous but nonpitting. LABORATORY DATA: White count 11, hemoglobin and hematocrit 10 and 34, platelets 464,000. Sodium 141, BUN and creatinine 17 and 1.7, albumin 3.1. UDS is still positive for opiates, methadone and benzodiazepines and tricyclics and methamphetamine had fallen off. PROBLEM LIST: 1. Encephalopathy. We will push to get an MRI today and again he has a nonfocal exam. I think it is going to be low yield but we do not really have an alternative diagnosis besides drug related encephalopathy. I am not sure what to do with the amphetamines that his family denies usage. We will continue to monitor. I will resume his methadone because I think he is going through withdrawal at this point. He is tremulous and delirious. 2. Acute kidney injury. This seems to be better. I am going to change his fluids to some nutritional support with Clinimix at low dose and I am going to give him 1 dose of Lasix because he does seem to be fairly edematous. 3. Chronic opioid use. We will continue to follow. Again we are resuming his methadone and we will monitor. 4. UTI. He is on Diflucan, also on Merrem for possible pneumonia I guess. 5. Disposition pending his clinical status. 6. Folate acid deficiency with anemia. We will supplement folate and follow clinically. cc: Ramiro Rodriguez MD
[2017-04-01] MEDS: DIFLUCAN PO SCH (11:41)
[2017-04-01] MEDS: CLINIMIX E 4.25%-5% SOLUTION 1,000 ML IV SCH ×2 (11:41→23:00)
[2017-04-01] MEDS: FLOMAX PO SCH (11:41)
[2017-04-01] MEDS: METHADONE PO SCH ×3 (11:50→16:11)
[2017-04-01] MEDS: NEXIUM IV SCH (11:50)
[2017-04-01] MEDS: FOLIC ACID 1 MG in NS 50 ML IV SCH (12:23)
[2017-04-01] MEDS: NORCO-10 PO PRN (12:24)
[2017-04-01] MEDS: LABETALOL IV PRN ×2 (12:31→16:11)
--- NOTE | 2017-04-01 12:51 | PROGRESS NOTE ---
DATE: 04/01/2017 SUBJECTIVE: He is asleep, but arousable. He did not interact with me. The family states that he has been somewhat combative and has been restrained both chemically and physically. OBJECTIVE: Vital Signs: Blood pressure 164/83, heart rate 119, respirations 23, afebrile. Intake 1.9 L. Output 2.2 L. PHYSICAL EXAMINATION: No acute distress.Skin: Warm and dry. HEENT: Conjunctivae are pink. Pupils are equal and round. Neck: Neck veins are not distended. Heart: Regular without gallops or murmurs. Lungs: Have equal breath sounds. No crackles. Abdomen: Soft, nontender. Bowel sounds are present. Extremities: Have 1+ edema. No clubbing or cyanosis. IMPRESSION: Acute kidney injury. Resolving. Nothing further to add so I will sign off at this time. I agree with the changes you made with his IV fluids. If his renal function does not return to normal then we would certainly be glad to see him as an outpatient. Electrolytes and acid-base are in target. cc: Jeffy Rosales MD
[2017-04-01] MEDS ORDERED: METHADONE LIQUID PO SCH (13:00)
[2017-04-01] MEDS ORDERED: METHADONE PO SCH (13:00)
[2017-04-01] MEDS ORDERED: LASIX IV ONE (14:47)
[2017-04-01] MEDS ORDERED: LASIX ONE (14:53)
[2017-04-01] MEDS: GEODON IM PRN (14:53)
--- NOTE | 2017-04-01 16:35 | Diag Imaging Result Doc PS360 ---
EXAM: MRI BRAIN W/O CONTRAST INDICATION: ams COMPARISON: CT head dated 03/28/2017. No prior MRI brain is available for comparison. FINDINGS: Excessive motion artifact may slightly limit the study. There is no evidence of acute infarct. The deep white matter signal is unremarkable. There is no discrete intracranial mass, mass effect, or intracranial hemorrhage. There is minimal maxillary sinus mucosal disease. The surrounding soft tissues and bony structures are essentially unremarkable, otherwise. IMPRESSION: No evidence of acute intracranial pathology and essentially unremarkable, otherwise. Electronically signed by Lionel Champion 04/01/2017 4:33 PM
--- NOTE | 2017-04-01 16:51 | PROGRESS NOTE ---
DATE: 04/01/2017 SUBJECTIVE: The patient has no current complaints. He is awake and sitting up in bed with the head of bed elevated 90 degrees. His family is at bedside. He got agitated last night requiring some medications and restraints. He was trying to get out of bed, moving his extremities. OBJECTIVE: Vital Signs: Blood pressure 164/83, pulse 119, afebrile, respirations 23. General: This is a male, sitting up in bed, eyes open, awake. He regards when I enter the room. He knows his name. He does not know where he is at. He is not otherwise oriented. He does not name his family, though makes some sort of joke about them and they all laugh as if he knows them. Neurologic: He moves his left thumb when I asked him to show me his right thumb. Pupils are equal. Very sluggish. Conjugate gaze. Ocular movements are full in the horizontal direction. Face is symmetric with equal activation. He is moving all of his extremities and this appears to be symmetric and at least against gravity. He responds to sensation in all extremities. Toes are mute. No clonus. DIAGNOSTICS: White count up to 11.65. Hemoglobin and hematocrit 10.9 and 34, platelets 464. Chemistry reviewed, BUN 17, creatinine down to 1.7 today. ASSESSMENT AND PLAN: A 56-year-old male with hypertension, chronic pain, opiate abuse on methadone. Admitted with dizziness and falling and encephalopathy. He was hypotensive and had acute kidney injury on admission with a creatinine of 7. I believe the encephalopathy may be multifactorial, toxic metabolic and possibly substance ingestion. I do not see any focal findings on his exam today. The primary team is trying to obtain an MRI again today, hopefully, this will be successful. Again, if he does not improve, we could consider an EEG. I agree with the concern now for some withdrawal symptoms since he has been here. Thank you for this consultation. cc: MD KATHRIN Cooper
[2017-04-01] MEDS: KLONOPIN PO SCH (21:00)
[2017-04-02] MEDS: GEODON IM PRN (01:35)
[2017-04-02] MEDS: LABETALOL IV PRN (02:33)
[2017-04-02] MEDS: XOPENEX NEB INH SCH ×4 (03:13→21:10)
[2017-04-02] MEDS: NORCO-10 PO PRN (04:07)
[2017-04-02] MEDS: HUMULIN R SUBQ SCH ×4 (06:22→21:30)
[2017-04-02 06:45] LABS: HEMATOCRIT 35.7 % (42.0-52.0); HEMOGLOBIN 11.5 g/dL (14.0-18.0); MCH 29.8 PG (27-31); MCHC 32.2 g/dL (33-37); MCV 92.5 FL (81-99); MPV 9.5 FL (7.4-10.4); RBC 3.86 XMIL (4.7-6.1)
[2017-04-02 07:00] LABS: ALBUMIN 2.9 g/dL (3.5-5.0); CALCIUM 9.2 mg/dL (8.8-10.2); POTASSIUM 4.6 mmol/L (3.5-5.1)
[2017-04-02] MEDS: HEPARIN SUBQ SCH (08:36)
[2017-04-02] MEDS: CLINIMIX E 4.25%-5% SOLUTION 1,000 ML IV SCH ×2 (08:36→18:17)
[2017-04-02] MEDS: MERREM 500 MG in NS 50 ML IV SCH (08:37)
[2017-04-02] MEDS: FLOMAX PO SCH (08:37)
[2017-04-02] MEDS: DIFLUCAN PO SCH (08:37)
[2017-04-02] MEDS: METHADONE PO SCH ×3 (08:37→16:09)
[2017-04-02] MEDS: NEXIUM IV SCH (11:01)
[2017-04-02] MEDS: FOLIC ACID 1 MG in NS 50 ML IV SCH (11:01)
[2017-04-02] MEDS: LOPRESSOR PO SCH ×3 (11:02→21:47)
[2017-04-02] MEDS: SODIUM CHLORIDE 0.9% INJ SCH (11:02)
[2017-04-02] MEDS: LOVENOX SUBQ SCH (11:02)
--- NOTE | 2017-04-02 11:19 | PROGRESS NOTE ---
DATE: 04/02/2017 SUBJECTIVE: Patient has no focal complaints. He is much more awake. He answers questions. He is still somewhat disoriented. He thinks he is in [place] but he does say that he is in the hospital. OBJECTIVE: Vital Signs: Blood pressure 159/99, heart rate of 122, respiratory rate of 20, temperature 99.6, 98% on 2 L. Cardiovascular: Regular rate and rhythm. Pulmonary: Bilateral breath sounds clear to auscultation. GI: Soft, nontender, nondistended. Bowel sounds were positive. Laboratory Data: White count 14, hemoglobin and hematocrit 11 and 35, platelets 446,000. Creatinine 1.4, glucose is 203. Albumin is 2.9. PROBLEM LIST: 1. Acute encephalopathy, likely multifactorial. He seems to be slowly improving. We do not have a clear etiology except for he had an abnormal urine drug screen positive for methamphetamines, significant azotemia on admission, but all that has improved and he is slowly improving. We have ruled out MRI, EEG was discussed with neurology. I am going to go ahead and pursue that but I think it is unlikely he has subclinical seizures but we will follow. 2. Acute kidney injury. This appears to have resolved. Continue fluids and follow. 3. Chronic opioid use. I am going to resume his methadone and follow. 4. Urinary tract infection. He is on Diflucan and Merrem. 5. Folate deficiency anemia, appears to be stable. 6. Disposition pending improvement in his clinical status. He is still significantly agitated so we are having difficulty moving him to the floor without having other issues. We will continue to monitor in the intensive care unit. cc: Ramiro Rodriguez MD
--- NOTE | 2017-04-02 14:13 | PROGRESS NOTE ---
DATE: 04/02/2017 PATIENT LOCATION: ICU bed 9. Mr. Leavitt is awake, alert, attentive. He is oriented to "[facility]" and was not able to tell me the correct day of the week. He was able to discuss some recent items from the news. He reports no headache and no other specific complaints. I have reviewed the hospital records on computer. His MRI scan was hindered by motion, but showed nothing definitely remarkable. OBJECTIVE: Clinical exam shows symmetrical limb tone and power, full extraocular movements, normal facial motility, unremarkable speech pattern, intact language function. I did not test his cognitive function. There is no meningismus. IMPRESSION: Global encephalopathy, likely multifactorial, probably multiple medications playing a role. He told me that he takes his medicines correctly including methadone, hydrocodone, clonazepam, and these were all apparent on the initial drug screen. Also, he had presented with hypotension and evidence of reduced kidney function. PLAN: I encouraged him to be careful with his medicines and to try to take them only as prescribed. In light of his stable course with clinical improvement, negative imaging and improved lab, I do not have any specific suggestion from a neurologic standpoint today. cc: MD KATHRIN Castillo III
[2017-04-03] MEDS: METHADONE PO SCH ×4 (00:47→21:33)
[2017-04-03] MEDS: KLONOPIN PO SCH ×2 (01:21→21:33)
[2017-04-03] MEDS: SEROQUEL PO SCH ×2 (01:21→22:00)
[2017-04-03] MEDS: LOPRESSOR PO SCH ×4 (02:50→19:27)
[2017-04-03] MEDS: XOPENEX NEB INH SCH ×2 (02:52→09:44)
[2017-04-03] MEDS: CLINIMIX E 4.25%-5% SOLUTION 1,000 ML IV SCH ×2 (05:53→15:39)
[2017-04-03] MEDS: HUMULIN R SUBQ SCH ×4 (06:23→21:19)
[2017-04-03 06:56] LABS: HEMATOCRIT 34.6 % (42.0-52.0); HEMOGLOBIN 11.1 g/dL (14.0-18.0); MCH 29.5 PG (27-31); MCHC 32.1 g/dL (33-37); MPV 9.5 FL (7.4-10.4); RBC 3.76 XMIL (4.7-6.1)
[2017-04-03 07:21] LABS: CALCIUM 9.5 mg/dL (8.8-10.2); MAGNESIUM 1.7 mg/dL (1.5-2.7); POTASSIUM 5.1 mmol/L (3.5-5.1)
[2017-04-03] MEDS: NORCO-10 PO PRN (07:44)
[2017-04-03] MEDS: DIFLUCAN PO SCH (09:52)
[2017-04-03] MEDS: MERREM 500 MG in NS 50 ML IV SCH (09:52)
[2017-04-03] MEDS: FLOMAX PO SCH (09:52)
[2017-04-03] MEDS: LOVENOX SUBQ SCH (10:53)
[2017-04-03] MEDS: SODIUM CHLORIDE 0.9% INJ SCH (10:53)
[2017-04-03] MEDS: NEXIUM IV SCH (10:53)
[2017-04-03] MEDS: FOLIC ACID 1 MG in NS 50 ML IV SCH (11:03)
--- NOTE | 2017-04-03 11:49 | Diag Imaging Result Doc PS360 ---
EXAM: CHEST-PORTABLE HISTORY: leukocytosis TECHNIQUE: Portable upright AP COMPARISON: 03/30/2017 FINDINGS: Poor inspiratory effort. The heart is mildly prominent. There are central vascular distention. No pleural effusions identified. No consolidation. IMPRESSION: Poor inspiratory effort with mild cardiomegaly and central vascular distention. Electronically signed by Jamir Álvarez 04/03/2017 11:47 AM
[2017-04-03] MEDS: MIRALAX PO SCH (12:30)
[2017-04-03] MEDS: LACTULOSE PO SCH ×2 (12:30→20:25)
[2017-04-03 12:31] LABS: URINE MICRO REVIEW NEEDED? NO; URINE SOURCE CATH
[2017-04-03 12:42] LABS: BILIRUBIN URINE NEGATIVE (NEGATIVE); BLOOD URINE TRACE (NEGATIVE); COLOR YELLOW; GLUCOSE URINE NEGATIVE (NEGATIVE); LEUKOCYTES URINE TRACE (NEGATIVE); NITRITE URINE NEGATIVE (NEGATIVE); PROTEIN URINE 30 mg/dL (NEGATIVE); SP GRAVITY URINE 1.015; TURBIDITY URINE CLEAR (CLEAR); UROBILINOGEN URINE NORMAL (NORMAL)
[2017-04-03 12:43] LABS: UR EPITHELIAL CELLS <10 /HPF (<10); URINE BACTERIA NEGATIVE /HPF; URINE CULTURE NEEDED? YES; URINE RBC <10 /HPF (<10)
--- NOTE | 2017-04-03 13:31 | PROGRESS NOTE ---
DATE: 04/03/2017 SUBJECTIVE: Patient has no focal complaints. OBJECTIVE: Blood pressure 143/87, heart rate 113 respiratory rate 20, temp a 100 degrees, 95% on 3 L.Cardiovascular: Regular rate and rhythm. Pulmonary: Bilateral breath sounds. Clear to auscultation. GI: Soft, nontender, nondistended. Bowel sounds are positive. LAB[place]ATORY DATA: [place] [address], hemoglobin and hematocrit 11 and 34. Platelets 435,000, creatinine 1.3. Glucose 210. PROBLEM LIST: 1. Encephalopathy likely multifactorial. He was having azotemia and abnormal drug screen and polypharmacy on admission. Head CT, MRI has been negative. Clinically he is acting more as a delirium type process. There may be a new infectious process that is contributing to that now. He is still fairly confused, at least disoriented although he is awake and alert intermittently. He did not have a severe episode of agitation. Neurology is following. Did not have other recommendations. EEG had been discussed previously but likely will be negative. He does not look like he is having seizures. Partial or otherwise. 2. Acute kidney injury. He appears to be stable. Continue to monitor. 3. Chronic opioid use. He is on methadone. 4. UTI. He is on Diflucan and Merrem. 5. Folate deficiency anemia. Continue folate supplementation. 6. Leukocytosis. We will repeat urine, blood culture, and chest x-ray. We will get ID opinion for antibiotic adjustment and follow clinically. 7. Meningitis is certainly a concern but I do not think the patient has had meningitis since admission. He has not had fever or leukocytosis until recently. I am not sure if Dr. Stanford will want to pursue LP but we will get him to evaluate and make recommendations. DISPOSITION: Pending improvement in his clinical status. cc: Ramiro Rodriguez MD
--- NOTE | 2017-04-03 14:09 | PROGRESS NOTE ---
DATE: 04/03/2017 Mr. Leavitt is more alert, brighter, more attentive, more consistently participating in conversation with me at the bedside today compared to yesterday. He still has trouble completing his thoughts. I spoke with patient's father at the bedside who reports patient has had some forgetfulness and "talking out of his head" sometimes at home, possibly associated with metabolic problems. There is no focal neurologic finding on brief bedside exam today. I do not have any new suggestions today, nothing to add to Dr. Peña's impression and recommendations made earlier. Thanks for allowing Neurology to follow Mr. Leavitt. cc: MD KATHRIN Castillo III
[2017-04-03] MEDS ORDERED: ZYVOX PO SCH (18:00)
--- NOTE | 2017-04-03 18:22 | CONSULTATION ---
DATE OF CONSULTATION: 04/03/2017 CONCLUSION: The patient is seen for evaluation of leukocytosis, the etiology of which I am uncertain. His chest x-ray shows a possible infiltrate which would suggest pneumonia. His urine culture is growing yeast which certainly could be contributing to leukocytosis as well. Patient also has altered mental status. This may be due to a drug overdose. RECOMMENDATIONS: I have discontinued meropenem and placed the patient on a combination of cefepime and doxycycline. I ordered HIV screening test. DISCUSSION: The patient is unable provide a history and the family members present were also unable to provide much in the way of history. According to the chart, the patient has a history of gout, anxiety disorder, back pain, gastroesophageal reflux disease, hypertension and chronic pain for which he is on methadone per a pain clinic. SURGICAL HISTORY: Positive for left elbow surgery, cholecystectomy and bilateral carpal tunnel surgeries. ALLERGIES: No known drug allergies. HOME MEDICATIONS: Indocin. Zofran. Allopurinol. Flomax. Catapres. Klonopin. Hydrocodone. Flexeril. Methadone. LABORATORY AND RADIOGRAPHIC STUDIES: So far, a CT scan of the head showed no acute disease. CT scan of the chest showed atelectasis. CT scan of the abdomen showed fatty liver , liver nodules and renal nodule. Chest x-ray shows central vascular distention. Blood and urine cultures are pending. Prior blood cultures were negative and a prior urine culture grew yeast as mentioned above. The Doppler study on the arm showed no DVT. PHYSICAL EXAMINATION: Vital Signs: Temperature is 97.9 degrees, pulse 103, respirations 19, blood pressure 142/82. General: This is an obese, middle-aged male. He has an altered mental status. He will start talking, but he does not make any sense from the talking. He did not follow request to move his extremities. When I passively move them, he indicated that it was painful. Lungs: Clear to auscultation. Cardiovascular: Heart rate is regular. Abdomen: Somewhat protuberant, but it was soft and nontender. Neck: No meningismus. Neurologic: As mentioned above, the patient would talk, but it did not make any sense. He did not directly answer any questions and he had did not follow request to move his extremities. Thank you for the consult. cc: MD KATHRIN He
[2017-04-03] MEDS: DOXYCYCLINE PO SCH (18:36)
[2017-04-03] MEDS: MAXIPIME 2 GM/NS 2 GM/100 ML IVPB IV SCH (18:36)
[2017-04-04] MEDS: CLINIMIX E 4.25%-5% SOLUTION 1,000 ML IV SCH ×3 (01:43→21:30)
[2017-04-04] MEDS: NORCO-10 PO PRN ×2 (01:50→21:05)
[2017-04-04] MEDS: LOPRESSOR PO SCH ×4 (01:51→21:04)
[2017-04-04 05:20] LABS: HEMATOCRIT 30.6 % (42.0-52.0); HEMOGLOBIN 9.8 g/dL (14.0-18.0); MCH 29.6 PG (27-31); MCV 92.4 FL (81-99); MPV 9.6 FL (7.4-10.4); RBC 3.31 XMIL (4.7-6.1)
[2017-04-04 06:08] LABS: CALCIUM 9.9 mg/dL (8.8-10.2); MAGNESIUM 2.1 mg/dL (1.5-2.7); POTASSIUM 5.1 mmol/L (3.5-5.1)
[2017-04-04] MEDS: HUMULIN R SUBQ SCH ×4 (06:31→21:29)
[2017-04-04] MEDS: MAXIPIME 2 GM/NS 2 GM/100 ML IVPB IV SCH ×2 (06:38→17:28)
[2017-04-04] MEDS: PRILOSEC PO SCH (06:38)
[2017-04-04] MEDS: METHADONE PO SCH ×3 (06:41→21:04)
[2017-04-04] MEDS: DOXYCYCLINE PO SCH ×2 (08:04→21:12)
[2017-04-04] MEDS: DIFLUCAN PO SCH (09:36)
[2017-04-04] MEDS: LACTULOSE PO SCH ×2 (09:37→21:04)
[2017-04-04] MEDS: MIRALAX PO SCH (09:37)
[2017-04-04] MEDS: FLOMAX PO SCH (09:37)
[2017-04-04] MEDS: LOVENOX SUBQ SCH (10:58)
[2017-04-04] MEDS ORDERED: SOLU-MEDROL IV ONE (11:10)
--- NOTE | 2017-04-04 11:45 | Diag Imaging Result Doc PS360 ---
EXAM: HUMERUS-LEFT HISTORY: arm pain TECHNIQUE: Two views COMPARISON: None. FINDINGS: Two views of the humerus performed portably shows no obvious fracture or destructive lesion. There are degenerative changes about the acromioclavicular joint, acromiohumeral joint, and elbow. IMPRESSION: Degenerative changes about the elbow and shoulder. Electronically signed by Saba Krause 04/04/2017 11:42 AM
[2017-04-04] MEDS: FOLIC ACID 1 MG in NS 50 ML IV SCH (12:04)
--- NOTE | 2017-04-04 13:49 | PROGRESS NOTE ---
DATE: 04/04/2017 SUBJECTIVE: Patient has no focal complaints. OBJECTIVE: Vital signs: Blood pressure 118/94, heart rate 104, respiratory rate 20, temperature 98.6 degrees, 97% on 3 L. Cardiovascular: Regular rate and rhythm. Pulmonary: Bilateral breath sounds. Clear to auscultation. GI: Soft, nontender, nondistended. Bowel sounds are positive. Extremity: He has numerous swollen joints. He has got tophaceous changes on his right olecranon process. 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 LABORATORY DATA: White count 13, hemoglobin and hematocrit 9 and 30, platelets of 373,000. Sodium 131, creatinine is 1.3. PROBLEM LIST: 1. Encephalopathy likely multifactorial. He seems a lot better just every day. He is much more awake and alert. He is intermittently confused but he has drastically improved over the last 48-72 hours. Neurology is following. I think at this point since he is improving, I do not think any further testing is required unless something changes. 2. Acute kidney injury has resolved. He kind of is at a baseline creatinine around 1.3. 3. Urinary tract infection. He is on Diflucan. 4. Leukocytosis with possible pneumonia. Dr. Stanford was consulted. He has put him on cefepime and doxycycline that will be day 2 and follow. At this point, I do not think there is any evidence clinically of meningitis so we will monitor that. 5. Folate deficiency anemia. Continue folate supplementation. 6. Acute polyarticular gouty arthritis. We will add colchicine and steroids and follow clinically. DISPOSITION: I think if he is stable tomorrow we can get him to the floor tomorrow and we will see how he is doing. Again, overall I think he is steadily improving. cc: Ramiro Rodriguez MD
--- NOTE | 2017-04-04 14:07 | PROGRESS NOTE ---
DATE: 04/04/2017 Mr. Leavitt is much brighter today, more alert, more consistently attentive, completing his thoughts, carrying on appropriate conversation. Family at bedside agrees he is much, much improved. There is nothing new neurologically. No new suggestions today. cc: Winnie Mckinney III, MD
[2017-04-04] MEDS: COLCRYS PO SCH ×2 (14:52→21:04)
--- NOTE | 2017-04-04 16:30 | PROGRESS NOTE ---
DATE: 04/04/2017 PRESENT ILLNESS: The patient has a leukocytosis which is overall improved. He still has an altered mental status. MEDICATIONS: The patient currently as far as antimicrobials are concerned is taking fluconazole, cefepime and doxycycline. PHYSICAL EXAMINATION: Vital Signs: Temperature is 100.3 degrees, pulse 111, respirations 17, blood pressure 148/78. General: The patient is awake. He is talking. He does not make much sense when he does talk. He does follow some requests such as moving his extremities. Lungs: Clear to auscultation. Cardiovascular: Regular heart rate. Abdomen: Soft and not tender. Legs: Patient has multiple excoriated areas however there is no erythema. LAB AND X-RAY: CBC today shows a white count of 13,550, hemoglobin 9.8, and platelet count 373,000. Creatinine is 1.3. GFR is 57. CPK 27. Urine culture is negative. Blood cultures are pending. ASSESSMENT AND PLAN: The patient has an altered mental status and leukocytosis. For now I plan to continue his antibiotics although I do not have anything definite that I am treating him for. COMORBIDITIES: The patient is on oxycodone, Klonopin and methadone all of which could cause an altered mental status. cc: Lenin Stanford MD
[2017-04-04] MEDS: SEROQUEL PO SCH (21:04)
[2017-04-04] MEDS: KLONOPIN PO SCH (21:04)
[2017-04-05] MEDS: NORCO-10 PO PRN ×2 (02:54→11:33)
[2017-04-05] MEDS: LOPRESSOR PO SCH ×3 (02:54→13:37)
[2017-04-05] MEDS: HUMULIN R SUBQ SCH ×4 (06:39→20:07)
[2017-04-05] MEDS: PRILOSEC PO SCH (06:41)
[2017-04-05] MEDS: METHADONE PO SCH ×4 (06:42→23:52)
[2017-04-05 07:16] LABS: HEMATOCRIT 32.3 % (42.0-52.0); HEMOGLOBIN 10.5 g/dL (14.0-18.0); MCH 28.5 PG (27-31); MCHC 32.5 g/dL (33-37); MCV 87.8 FL (81-99); MPV 9.7 FL (7.4-10.4); RBC 3.68 XMIL (4.7-6.1)
[2017-04-05 07:32] LABS: AGAP 12; BUN 40 mg/dL (8-22); CALCIUM 9.8 mg/dL (8.8-10.2); CHLORIDE 91 mmol/L (98-107); COSMO 274; MAGNESIUM 2.2 mg/dL (1.5-2.7); SODIUM 129 mmol/L (136-145); TCO2 26 mmol/L (25-35)
[2017-04-05] MEDS: MAXIPIME 2 GM/NS 2 GM/100 ML IVPB IV SCH ×2 (07:32→18:54)
[2017-04-05] MEDS: DOXYCYCLINE PO SCH ×2 (07:33→20:02)
[2017-04-05 07:42] LABS: POTASSIUM 6.6 mmol/L (3.5-5.1)
[2017-04-05 09:17] LABS: HIV ANTIBODY SCREEN SEE COMMENTS
[2017-04-05] MEDS: FLOMAX PO SCH (09:30)
[2017-04-05] MEDS: LACTULOSE PO SCH ×2 (09:30→20:02)
[2017-04-05 09:50] LABS: AGAP 18; BUN 42 mg/dL (8-22); CALCIUM 9.5 mg/dL (8.8-10.2); CHLORIDE 90 mmol/L (98-107); COSMO 283; POTASSIUM 5.7 mmol/L (3.5-5.1); SODIUM 131 mmol/L (136-145); TCO2 23 mmol/L (25-35)
[2017-04-05] MEDS: DIFLUCAN PO SCH (09:57)
[2017-04-05] MEDS: MIRALAX PO SCH (09:57)
[2017-04-05] MEDS: COLCRYS PO SCH ×2 (10:01→20:02)
[2017-04-05] MEDS: LOVENOX SUBQ SCH (13:38)
[2017-04-05] MEDS: FOLIC ACID 1 MG in NS 50 ML IV SCH (13:38)
--- NOTE | 2017-04-05 14:07 | PROGRESS NOTE ---
DATE: 04/05/2017 SUBJECTIVE: Patient has no focal complaints. To me he looks much more alert every day. Apparently he has had some intermittent confusion today. OBJECTIVE: Vital signs: Blood pressure 172/72, heart rate of 85, respiratory 15, temperature 97.9 degrees, 100% on 2 L. Cardiovascular: Regular rate and rhythm. Pulmonary: Bilateral breath sounds. Diminished at bases. GI: Was soft, nontender, nondistended. Bowel sounds are positive. Extremities: He has nonpitting edema his lower extremities. Musculoskeletal: His erythema along his wrist, elbow joints and legs is improved as well as his functional status. Yesterday he could not move his left arm. Today he can. LABORATORY DATA: White count 13, sodium 131 and potassium 5.7. HIV test was negative. PROBLEM LIST: 1. Metabolic encephalopathy. Clinically, he is improving steadily every day. We did have a long discussion with brothers and patient about the fact that he is on a complicated regimen for his pain that may be contributing to his confusion and apparently he has episodes of confusion even at baseline. I think the family is just more aware of it because they are with him 24/03 at this point. Neurology is following but I do not think there is any other testing required. I imagine he will continue to steadily improve back to baseline. 2. Acute kidney injury. This has stabilized. He is down to chronic renal failure 1.3. 3. Yeast UTI. Continue Diflucan. 4. Leukocytosis. Clinically that has improved. He is on cefepime and doxycycline per Dr. Stanford presumably for pneumonia. 5. Acute gouty arthritis. He is much improved today like he can move his upper extremities which was not possible yesterday, just significant pain. I will continue low-dose prednisone and follow. We will also continue colchicine and follow. 6. Folic acid deficiency with anemia. Will continue to supplement. DISPOSITION: 1. I think he is okay to go to step-down. 2. We need to start working on ambulation and movement and physical therapy, get a sense of what his functional status is at this point. We will continue to follow. cc: Ramiro Rodriguez MD
[2017-04-05] MEDS: PREDNISONE PO SCH (15:21)
[2017-04-05] MEDS: CATAPRES PO SCH (15:21)
[2017-04-05] MEDS: TOPROL XL PO SCH (15:21)
[2017-04-05] MEDS: SEROQUEL PO SCH (20:02)
[2017-04-06] MEDS: METHADONE PO SCH ×4 (05:04→22:50)
[2017-04-06] MEDS: PRILOSEC PO SCH ×2 (05:04→06:08)
[2017-04-06] MEDS: MAXIPIME 2 GM/NS 2 GM/100 ML IVPB IV SCH ×2 (05:04→16:59)
[2017-04-06 05:24] LABS: HEMATOCRIT 29.4 % (42.0-52.0); HEMOGLOBIN 9.6 g/dL (14.0-18.0); MCH 29.5 PG (27-31); MCHC 32.7 g/dL (33-37); MCV 90.5 FL (81-99); MPV 10.2 FL (7.4-10.4); RBC 3.25 XMIL (4.7-6.1)
[2017-04-06 06:19] LABS: AGAP 13; BUN 49 mg/dL (8-22); CALCIUM 9.3 mg/dL (8.8-10.2); CHLORIDE 96 mmol/L (98-107); COSMO 288; MAGNESIUM 2.3 mg/dL (1.5-2.7); POTASSIUM 5.7 mmol/L (3.5-5.1); SODIUM 133 mmol/L (136-145); TCO2 24 mmol/L (25-35)
[2017-04-06] MEDS: HUMULIN R SUBQ SCH ×4 (06:25→20:03)
[2017-04-06] MEDS: MIRALAX PO SCH (08:30)
[2017-04-06] MEDS: COLCRYS PO SCH ×3 (08:31→20:47)
[2017-04-06] MEDS: CATAPRES PO SCH (08:31)
[2017-04-06] MEDS: FLOMAX PO SCH (08:31)
[2017-04-06] MEDS: DIFLUCAN PO SCH (08:31)
[2017-04-06] MEDS: DOXYCYCLINE PO SCH ×2 (08:31→19:58)
[2017-04-06] MEDS: TOPROL XL PO SCH (08:31)
[2017-04-06] MEDS: PREDNISONE PO SCH (08:31)
[2017-04-06] MEDS: LACTULOSE PO SCH (08:31)
[2017-04-06] MEDS: LOVENOX SUBQ SCH (11:05)
[2017-04-06] MEDS: FOLIC ACID 1 MG in NS 50 ML IV SCH (11:07)
[2017-04-06] MEDS ORDERED: KAYEXALATE PO ONE (11:28)
[2017-04-06] MEDS ORDERED: NS 1,000 ML IV SCH (12:52)
--- NOTE | 2017-04-06 17:45 | PROGRESS NOTE ---
DATE: 04/06/2017 SUBJECTIVE: Patient has no focal complaints. He is much more awake, alert. OBJECTIVE: Vital signs: Blood pressure 126/77, heart rate of 82, respiratory rate 18, temperature 98 degrees, 99% on room air. Cardiovascular: Regular rate and rhythm. Pulmonary: Bilateral breath sounds. Clear to auscultation. GI: Soft, nontender, nondistended. Bowel sounds are positive. LABORATORY DATA: Sodium is down to 133, potassium is still high at 5.7. BUN up to 49. Glucose is 246. PROBLEM LIST: 1. Encephalopathy. He continues to improve. I think this was likely related to azotemia and medications. We are progressing with rehab. 2. Acute kidney injury. This has stabilized. 3. Yeast urinary tract infection. He is on Diflucan. 4. Presumed pneumonia. He is on cefepime and doxycycline and is stable. 5. Acute gouty arthritis. He is on prednisone and colchicine and seems to be better. 6. Folic acid deficiency. 7. Hyponatremia and azotemia. I am not sure if this is not related to the steroids. I am going to put him on a little bit of fluid and see how he does. DISPOSITION: Deciding whether he needs rehab or other home physical therapy. We will continue to progress with physical therapy and follow. cc: Ramiro Rodriguez MD
[2017-04-06] MEDS: SEROQUEL PO SCH ×2 (19:58→20:48)
[2017-04-06] MEDS: NORCO-10 PO PRN (22:58)
[2017-04-07] MEDS: MAXIPIME 2 GM/NS 2 GM/100 ML IVPB IV SCH (05:05)
[2017-04-07] MEDS: METHADONE PO SCH ×3 (05:07→22:40)
[2017-04-07] MEDS: PRILOSEC PO SCH ×2 (05:07→06:00)
[2017-04-07 05:18] LABS: HEMATOCRIT 29.2 % (42.0-52.0); HEMOGLOBIN 9.3 g/dL (14.0-18.0); MCH 29.2 PG (27-31); MCHC 31.8 g/dL (33-37); MCV 91.5 FL (81-99); MPV 10.2 FL (7.4-10.4); RBC 3.19 XMIL (4.7-6.1)
[2017-04-07 05:54] LABS: AGAP 12; BUN 44 mg/dL (8-22); CALCIUM 8.7 mg/dL (8.8-10.2); CHLORIDE 100 mmol/L (98-107); COSMO 287; POTASSIUM 4.8 mmol/L (3.5-5.1); SODIUM 138 mmol/L (136-145); TCO2 26 mmol/L (25-35)
[2017-04-07] MEDS: HUMULIN R SUBQ SCH ×4 (06:01→22:41)
--- NOTE | 2017-04-07 06:48 | PROGRESS NOTE ---
DATE: 04/07/2017 PRESENT ILLNESS: The patient had a leukocytosis. Today his white count is normal. The patient is alert and coherent. I think whatever caused him to have his leukocytosis is either completely gone or is being treated. The only actual infection we could document was a Shefali urinary tract infection. If the urinary tract infection was causing the patient's problem, then I would assume the patient's kidneys were involved also. MEDICATIONS: The patient is on cefepime and doxycycline, and also fluconazole. PHYSICAL EXAMINATION: Vital Signs: Temperature is 97.7 degrees, pulse 90, respirations 20, blood pressure 156/69. General: This is an obese, but otherwise healthy-appearing, middle-aged male. He is in no acute distress. Lungs: Clear to auscultation. Cardiovascular: Regular heart rate. Abdomen and Flank: Soft and nontender. Neurologic: Patient is alert. He is coherent. He can move his extremities. There is no tremor. He was oriented as to time, place, and person. LAB AND X-RAY: Today the patient's CBC shows a white count of 9130, hemoglobin 9.3, and platelet count 350,000 .creatinine is 1 GFR is greater than 60. Antibody to HIV was negative. Repeat blood and urine cultures are negative. ASSESSMENT AND PLAN: The patient's fungal urinary tract infection is the only definite infection that was documented. The patient has received a little over a week's worth of treatment. I have electronically sent a prescription to [facility] which is where the patient gets his medications for fluconazole 100 mg daily for 7 more days. From my perspective, the patient can go home. COMORBIDITIES: The patient's comorbidities, he may well have had a drug overdose causing his problem. Also it is possible that the fungal urinary tract infection was responsible for some of his problem, or even all of it. I have discontinued the patient's 2 antibiotics; namely doxycycline and cefepime. He is on fluconazole now, and as mentioned above, I have electronically sent a prescription for 7 more days of fluconazole. I am signing off the patient's case. I am available to see the patient on a p.r.n. basis. cc: Lenin Stanford MD
[2017-04-07] MEDS: TOPROL XL PO SCH (08:08)
[2017-04-07] MEDS: MIRALAX PO SCH (08:08)
[2017-04-07] MEDS: DIFLUCAN PO SCH (08:08)
[2017-04-07] MEDS: FOLIC ACID PO SCH (08:08)
[2017-04-07] MEDS: COLCRYS PO SCH ×2 (08:08→22:40)
[2017-04-07] MEDS: CATAPRES PO SCH (08:08)
[2017-04-07] MEDS: FLOMAX PO SCH (08:08)
[2017-04-07] MEDS: PREDNISONE PO SCH (08:08)
[2017-04-07] MEDS: LOVENOX SUBQ SCH (11:23)
[2017-04-07] MEDS: NORCO-10 PO PRN ×2 (11:28→22:57)
[2017-04-07] MEDS: SEROQUEL PO SCH (22:40)
--- NOTE | 2017-04-08 03:46 | PROGRESS NOTE ---
DATE: 04/07/2017 SUBJECTIVE: The patient is resting comfortably in bed. He is more awake and alert as per family. No acute events noted overnight. OBJECTIVE: Vital Signs: Temperature 97.6 degrees, blood pressure 136/67, heart rate 80, respirations 15, O2 saturations 98% on room air. General: This is an elderly male lying comfortably in bed in no acute distress. Head: Normocephalic, atraumatic. Heart: S1, S2. Normal. Regular rate and rhythm. Lungs: Clear to auscultation bilaterally. Abdomen: Positive bowel sounds. Soft, nontender, nondistended. Extremities: No edema. No cyanosis. Neurologic: The patient is alert oriented x3. LABS: Hemoglobin 9.3, hematocrit 29, sodium 138, potassium 4.8, chloride 100, CO2 26, BUN 44, creatinine 1, glucose 101. ASSESSMENT AND PLAN: 1. Encephalopathy. Improved. The patient is close to baseline as per the family. Will continue to monitor this closely. 2. Urinary tract infection secondary to yeast. Will continue on oral Diflucan. The patient will continue on this upon discharge as well. 3. Morbid obesity. Aware. 4. Gouty arthritis. Continue on Colcrys and prednisone. Will likely need to taper the prednisone upon discharge. 5. Acute kidney injury. Resolved. 6. Hypertension. Continue on Toprol-XL. 7. Benign prostatic hypertrophy. Continue on Flomax. 8. Deep vein thrombosis prophylaxis. Continue on Lovenox. 9. Continue with physical therapy. 10. Disposition. The patient states that he would rather be discharged home with home health versus going to rehab. cc: Whit Palacio MD
[2017-04-08] MEDS: HUMULIN R SUBQ SCH ×2 (06:12→11:58)
[2017-04-08] MEDS: PRILOSEC PO SCH (06:13)
[2017-04-08] MEDS: METHADONE PO SCH (06:13)
[2017-04-08 06:25] VITALS: BP 156/69
[2017-04-08 07:12] LABS: HEMOGLOBIN 11.3 g/dL (14.0-18.0); MCH 29.4 PG (27-31); MCHC 32.3 g/dL (33-37); MCV 90.9 FL (81-99); MPV 9.7 FL (7.4-10.4); RBC 3.85 XMIL (4.7-6.1)
[2017-04-08 07:45] LABS: AGAP 13; BUN 35 mg/dL (8-22); CALCIUM 9.7 mg/dL (8.8-10.2); CHLORIDE 99 mmol/L (98-107); COSMO 282; POTASSIUM 4.6 mmol/L (3.5-5.1); SODIUM 137 mmol/L (136-145); TCO2 25 mmol/L (25-35)
[2017-04-08] MEDS: PREDNISONE PO SCH (08:19)
[2017-04-08] MEDS: COLCRYS PO SCH (08:19)
[2017-04-08] MEDS: TOPROL XL PO SCH (08:19)
[2017-04-08] MEDS: FLOMAX PO SCH (08:19)
[2017-04-08] MEDS: CATAPRES PO SCH (08:20)
[2017-04-08] MEDS: MIRALAX PO SCH (08:20)
[2017-04-08] MEDS: FOLIC ACID PO SCH (08:20)
[2017-04-08] MEDS: DIFLUCAN PO SCH (08:20)
[2017-04-08] MEDS: LOVENOX SUBQ SCH (11:59)
--- NOTE | 2017-04-19 09:54 | DISCHARGE SUMMARY ---
ADMISSION DATE: 03/28/2017 DISCHARGE DATE: 04/08/2017 FINAL DISCHARGE DIAGNOSES: 1. Encephalopathy. 2. Urinary tract infection secondary to yeast. 3. Morbid obesity. 4. Gouty arthritis. 5. Acute kidney injury. 6. Hypertension. 7. Benign prostatic hypertrophy. CONSULTATIONS REQUESTED DURING THIS HOSPITAL STAY: 1. Neurology consultation with Dr. Peña. 2. Nephrology consultation with Dr. Rosales. 3. Neurology consultation with Dr. Mckinney. 4. Infectious Disease consultation with Dr. Stanford. HOSPITAL COURSE: Mr. Leavitt is a 56-year-old male with a history of multiple medical problems who initially presented to [facility] with confusion and acute renal failure. The patient was ultimately transferred to [facility] and Nephrology, Neurology and ID were consulted. The patient was noted to have a urinary tract infection and was initially started on broad-spectrum antibiotics. The patient was treated with IV fluids which resulted in improvement in his renal function. The patient was noted to be confused for several days so Neurology was consulted. An MRI was done that was noted to be unremarkable. It was thought that the patient's altered mental status was a combination of toxic and metabolic encephalopathy. Slowly over the course of the hospital stay the patient's mental status improved. Ultimately the urine culture grew out yeast and the patient was switched to Diflucan. The patient improved enough to be transferred out of the ICU to the medical floor. The patient does have pretty severe gouty arthritis and was treated with prednisone and colchicine which resulted in improvement in his joints. The patient was seen by Physical Therapy and he did well. The patient continued to improve clinically and was cleared for discharge home on 04/08/2017. DISCHARGE MEDICATIONS: 1. Diflucan 100 mg p.o. daily. 2. Glucophage 500 mg p.o. twice a day. 3. Toprol-XL 50 mg p.o. daily. 4. Prilosec 40 mg p.o. daily. 5. MiraLAX 17 g p.o. daily. 6. Folic acid 1 mg p.o. daily. 7. Flomax 0.8 mg p.o. daily. 8. Clonidine 0.1 mg p.o. daily. 9. Methadone 10 mg p.o. every 8 hours. 10. Klonopin 1 mg p.o. b.i.d. p.r.n. for anxiety. 11. Orland 10/325 one tab oral every 4 hours p.r.n. for pain. 12. Allopurinol 300 mg p.o. daily. DISCHARGE DIET: 1800 ADA diet. ACTIVITY: As tolerated. FOLLOWUP INSTRUCTIONS: The patient has been advised to follow up with Dr. Zach Seay MD in 1- 2 weeks. cc: Whit Palacio MD
== END 2017-04-08 13:40 | disposition home health service (06) ==
LOC: P.ED 20:09 → SUATTDRO 23:41 → P.ICU 23:41 → ICU 03-29 16:34 → 3S 04-05 16:55 → 3N 04-07 16:56
PROVIDERS: ATTEND Internal Medicine

== ENCOUNTER 2018-11-11 13:26 | Inpatient (IN) ==
[2018-11-11] MEDS ORDERED: ASPIRIN PO ONE (14:18)
--- NOTE | 2018-11-11 14:21 | EKG Report ---
Test Performed on : 11/11/2018 2:03:47 PM Test Reason : chest palpitations Blood Pressure : / mmHG Vent. Rate : 149 BPM Atrial Rate : 178 BPM P-R Int : 000 ms QRS Dur : 104 ms QT Int : 314 ms P-R-T Axes : 000 -33 126 degrees QTc Int : 494 ms Atrial fibrillation. with rapid ventricular response. Left axis deviation T wave abnormality, consider lateral ischemia Abnormal ECG When compared with ECG of 28-MAR-2017 20:40, Atrial fibrillation. has replaced Sinus rhythm. Unconfirmed Result
[2018-11-11] MEDS ORDERED: NS 2,000 ML ONE (14:26)
[2018-11-11] MEDS ORDERED: LOPRESSOR ONE (14:26)
[2018-11-11 14:51] LABS: INR 1.24; PROTIME 16.6 Seconds (11.0-16.0)
--- NOTE | 2018-11-11 14:55 | Diag Imaging Result Doc PS360 ---
EXAM: CHEST-1 VIEW 11/11/2018 HISTORY: chest palpitations TECHNIQUE: AP portable at 1441 COMMENT: There is alveolar opacity with air bronchograms in the left upper lobe. This was not present on 04/03/2017. There is cardiomegaly. Given the findings on recent venous ultrasound, the possibility of a pulmonary infarct cannot be excluded. IMPRESSION: Left upper lobe opacity, pulmonary infarct versus pneumonia. Electronically signed by Matheus Hernandez 11/11/2018 2:53 PM
[2018-11-11 15:04] LABS: BASO# 0.06 X1000 (0.0-0.2); BASO% 0.1 % (0.0-0.8); EOS# 0.12 X1000 (0.0-0.7); EOS% 0.3 % (0.0-10.0); HEMATOCRIT 37.7 % (42.0-52.0); HEMOGLOBIN 12.3 g/dL (14.0-18.0); LYMPH# 1.57 X1000 (1.2-3.4); LYMPH% 3.8 % (20.5-51.1); MCH 29.6 PG (27-31); MCHC 32.6 g/dL (33-37); MCV 90.8 FL (81-99); MONO# 1.89 X1000 (0.11-0.59); MONO% 4.5 % (1.7-9.3); MPV 11.1 FL (7.4-10.4); NEUT# 37.93 X1000 (1.4-6.5); NEUT% 91.3 % (42.2-75.2); PLT 280 X1000 (130-400); RBC 4.15 XMIL (4.7-6.1); RDW 14.9 % (11.5-14.5); WBC 41.57 X1000 (4.8-10.8)
[2018-11-11 15:32] LABS: ALB/GLOB RATIO 1.2; ALBUMIN 3.7 g/dL (3.5-5.0); CALCIUM 9.2 mg/dL (8.8-10.2); CREATININE 4.6 mg/dL (0.7-1.2); TOTAL BILIRUBIN 0.88 mg/dL (0.20-1.00); TOTAL PROTEIN 6.9 g/dL (6.3-8.3)
[2018-11-11 15:33] LABS: POTASSIUM 6.2 mmol/L (3.5-5.1)
[2018-11-11 15:38] LABS: BANDS 6 % (0-1); LYMPHS 4 % (21-51); MONO 3 % (1-9); SEGS 87 % (42-75)
[2018-11-11] MEDS ORDERED: NS 1,000 ML IV ONE ×3 (16:20→16:26)
[2018-11-11] MEDS ORDERED: ZITHROMAX 500 MG/NS 500 MG/250 ML IVPB IV ONE (16:21)
[2018-11-11] MEDS ORDERED: ROCEPHIN 1 GM in NS 50 ML IV ONE (16:21)
[2018-11-11] MEDS ORDERED: CALCIUM GLUCONATE 1 GM in NS 50 ML IV ONE (16:32)
[2018-11-11] MEDS ORDERED: NS 1,000 ML IV SCH (16:45)
[2018-11-11] MEDS ORDERED: TYLENOL PO PRN (16:45)
[2018-11-11] MEDS ORDERED: ZOFRAN IV PRN (16:45)
[2018-11-11 16:53] LABS: ALLEN TEST YES; BE -6.7 mmoll (-3.0-3.0); BLOOD TYPE ARTERIAL; HCO3-(ACT) 19.7 mmoll (20.0-26.0); METHB 0.9 % (0.0-1.5); MODALITY CANNULA; O2HB 95.3 % (95.0-99.0); PCO2(98.6) 42 mmHg (35-45); PO2(98.6) 82 mmHg (60-100); SAMPLE BLOOD; SAO2 97.5 % (95.0-100.0); THB 11.1 g/dL (11.5-17.4); pH(98.6) 7.28 (7.35-7.45)
[2018-11-11] MEDS ORDERED: SODIUM BICARBONATE 8.4% IV PUSH ONE (16:54)
[2018-11-11] MEDS ORDERED: CARDIZEM IV ONE (17:01)
--- NOTE | 2018-11-11 17:14 | PROVIDER DOCUMENTATION ---
This chart was entered by Mariama Cruz Scribe, acting as scribe for Smauel Weber MD. HPI-General Adult - General Chief Complaint: N/V/D Stated Complaint: N/V/D WEAK HEAD PAIN Time Seen by Provider: 11/11/18 14:08 Source: patient Allergies/Adverse Reactions: Patient Allergies Allergy/AdvReac Type Severity Reaction Status Date / Time No Known Allergies Allergy Verified 11/11/18 17:08 Home Medications: Home Medication List Medication Instructions Recorded Confirmed Last Taken Type Methadone 10 mg PO TID 12/16/14 11/07/17 03/18/17 History Clonazepam [Klonopin] 1 - 2 mg PO HS #30 tablet MDD 2 12/31/16 11/11/18 03/17/17 Rx Allopurinol 300 mg PO DAILY #30 tablet 04/08/17 11/06/17 Unknown Rx Clonidine [Catapres] 0.1 mg PO DAILY #30 tablet 04/08/17 11/11/18 Unknown Rx Metformin [Glucophage] 500 mg PO BID CC #60 tablet 04/08/17 11/11/18 Unknown Rx Metoprolol Succinate E.r. [Toprol 50 mg PO DAILY #30 tablet 04/08/17 11/06/17 Unknown Rx Xl] Omeprazole [Prilosec] 40 mg PO DAILY@0700 #30 capsule 04/08/17 11/06/17 Unknown Rx Oxycodone HCl/Acetaminophen 1 each PO BID 11/07/17 11/11/18 Unknown History [Oxycodone-Acetaminophen 10-325] Rivaroxaban [Xarelto] 15 mg PO BID #20 tablet 11/07/17 Unknown Rx Rivaroxaban [Xarelto] 20 mg PO DAILY #30 tablet 11/07/17 Unknown Rx Tamsulosin [Flomax] 0.8 mg PO QHS 11/07/17 11/07/17 Unknown History Triamterene/Hydrochlorothiazid 1 each PO DAILY 11/07/17 11/07/17 11/06/17 History [Triamterene-Hctz 37.5-25 mg Tb] - History of Present Illness -Gen Adult Nature of Presenting Problems: 58 y/o male presents to ED with worsening chills onset 2 days ago, and N/V/D, near syncope, weakness, and malaise onset yesterday. Pt reports he has gout that causes him to be on disability, and ran out of Klonopin yesterday. Pt has no hx afib. Pt is alert and oriented. Location of Pain/Injury: reports: generalized Pain Radiation: reports: no radiation Quality of Pain: reports: none Severity: reports: moderate Onset/Duration: reports: 24 hours ago, 2 days ago Timing: reports: still present, getting worse Context/Activities at Onset: reports: none Modifying Factors: improves with: nothing Associated Symptoms: reports: diarrhea, fever/chills, malaise, nausea, syncope (near), vomiting, weakness Similar Symptoms Previously?: No Recently seen or treated by another doctor?: No Review of Systems - Adult - REVIEW OF SYSTEMS - ADULT Constitutional: reports: chills, other (malaise). denies: fever Eyes: reports: no symptoms reported Ears, Nose, Mouth & Throat: reports: no symptoms reported Cardiovascular: denies: chest pain, orthopnea Respiratory: denies: cough, shortness of breath Gastrointestinal: reports: diarrhea, nausea, vomiting. denies: abdominal pain Genitourinary: reports: no symptoms reported Musculoskeletal: denies: back pain, joint pain Integumentary: reports: no symptoms reported Neurological: reports: syncope (near), other (weakness). denies: dizziness/vertigo, seizure Psychiatric: reports: no symptoms reported Endocrine: reports: no symptoms reported Hematologic/Lymphatic: reports: no symptoms reported Allergic/Immunologic: reports: no symptoms reported All Other Systems: Reviewed and Negative Past History - Adult - PAST MEDICAL HISTORY-ADULT Review of Records: reports: Old Records Reviewed, Nursing Assessment Review, Medications Reviewed Major Childhood Illnesses: reports: denies history Cardiovascular: reports: HTN, hyperlipidemia Respiratory: reports: sleep apnea Gastrointestinal: reports: denies history Obstetrical/Gynecological: reports: denies history Genitourinary: reports: other (uti/pyleonephritis) Musculoskeletal: reports: arthritis (gouty), chronic pain, other (gout) Neurological: reports: denies history Psychiatric: reports: anxiety Endocrine/Immune: reports: denies history Other Conditions: reports: skin disorder - PRIOR SURGERIES/PROCEDURES Surgical/Procedure History: reports: cholecystectomy, orthopedic (extremity) (bilateral wrist) - IMMUNIZATION STATUS Childhood Immunizations: See Nurse Assessment Flu Vaccine: See Nurse Assessment - FAMILY HISTORY Family History: reviewed, not pertinent - SOCIAL HISTORY Smoking: quit greater than 1 year Substance Use: none/never Alcohol Use Frequency: never Living Situation: family Physical Exam-General - PHYSICAL EXAM-ADULT Initial Vital Signs Reviewed: Yes - CONSTITUTIONAL General Appearance: appears well, alert, no apparent distress - EYES Eyes: PERRL/EOMI, pink conjunctivae - HEAD, EARS, NOSE, MOUTH & THROAT HENMT: normocephalic/atraumatic, moist mucous membranes, normal ENT inspection - NECK Neck: non-tender, full range of motion - RESPIRATORY Respiratory: chest non-tender, lungs clear, normal breath sounds - CARDIOVASCULAR Cardiovascular: tachycardia - GASTROINTESTINAL (ABDOMEN) Abdominal Exam: normal bowel sounds, soft, tenderness (LQ) - MUSCULOSKELETAL Back Exam: normal inspection, no CVA tenderness Extremity: normal range of motion, non-tender, normal gait - SKIN Integumentary: warm/dry, pallor - NEUROLOGIC Neurologic: grossly normal - PSYCHIATRIC Psych/Mental Status: normal mood/affect, normal thought content, normal thought process Progress - PLAN OF CARE/RESULTS Progress/Plan/Lab Results: Vital Signs - 8 hr 11/11/18 13:48 Temperature 96.6 F L Pulse Rate 155 H Respiratory Rate 18 Blood Pressure 101/64 O2 Sat by Pulse Oximetry 94 L Orders Category Date Time Status Cardiac Monitoring DIRECTED Care 11/11/18 14:18 Active Oxygen Therapy- ED Nursing DIRECTED Care 11/11/18 14:18 Active Saline Loc NOW Care 11/11/18 14:18 Active CHEST-2 VIEWS [RAD] Stat Exams 11/11/18 14:18 Ordered CBC WITH ELECTRONIC DIFF [HEME] Stat Lab 11/11/18 14:15 Results CK PROFILE [SP CHEM] Stat Lab 11/11/18 14:15 Received COMPREHENSIVE METABOLIC PANEL [CHEM] Stat Lab 11/11/18 14:15 Received PRO B-NATRIURETIC PEPTIDE Stat Lab 11/11/18 14:15 Received PROTIME WITH INR [COAG] Stat Lab 11/11/18 14:15 Received PTT [COAG] Stat Lab 11/11/18 14:15 Received TROPONIN T Stat Lab 11/11/18 14:15 Received 0.9% Sodium Chloride Inj [Ns] 1,000 ml Med 11/11/18 14:26 Discontinued .ROUTE As directed Aspirin Med 11/11/18 14:18 Discontinued 325 mg PO NOW ONE Metoprolol [Lopressor] Med 11/11/18 14:26 Discontinued 5 mg .ROUTE .STK-MED ONE CP/SOB/Palp >45 yrs of Age Stat Oth 11/11/18 14:18 Ordered EKG [EKG] Stat Ther 11/11/18 14:18 Draft Laboratory Tests 11/11/18 11/11/18 11/11/18 14:15 14:15 14:15 WBC 41.57 H RBC 4.15 L Hgb 12.3 L Hct 37.7 L MCV 90.8 MCH 29.6 MCHC 32.6 L RDW Std Deviation 14.9 H Plt Count 280 MPV 11.1 H Neut % (Auto) 91.3 H Lymph % (Auto) 3.8 L Emmet % (Auto) 4.5 Eos % (Auto) 0.3 Baso % (Auto) 0.1 Neut # (Auto) 37.93 H Lymph # (Auto) 1.57 Emmet # (Auto) 1.89 H Eos # (Auto) 0.12 Baso # (Auto) 0.06 Segmented Neutrophils 87 H Band Neutrophils 6 H Lymphocytes 4 L Monocytes 3 Pathologist Review PT INR PTT (Actin FS) Sodium 138 Potassium 6.2 H* Chloride 95 L Carbon Dioxide 20 L Anion Gap 23 BUN 42 H Creatinine 4.6 H Estimated GFR/1.73 m2 13 BUN/Creatinine Ratio 9 Glucose 82 Calculated Osmolality 285 Calcium 9.2 Total Bilirubin 0.88 AST 29 ALT 11 Alkaline Phosphatase 149 H Creatine Kinase 84 Troponin T Ase-U-Ztgvkzfmvyu Pept 50605 H Total Protein 6.9 Albumin 3.7 Globulin 3.2 Albumin/Globulin Ratio 1.2 11/11/18 11/11/18 14:15 14:15 WBC RBC Hgb Hct MCV MCH MCHC RDW Std Deviation Plt Count MPV Neut % (Auto) Lymph % (Auto) Emmet % (Auto) Eos % (Auto) Baso % (Auto) Neut # (Auto) Lymph # (Auto) Emmet # (Auto) Eos # (Auto) Baso # (Auto) Segmented Neutrophils Band Neutrophils Lymphocytes Monocytes Pathologist Review PT 16.6 H INR 1.24 PTT (Actin FS) 44.0 H Sodium Potassium Chloride Carbon Dioxide Anion Gap BUN Creatinine Estimated GFR/1.73 m2 BUN/Creatinine Ratio Glucose Calculated Osmolality Calcium Total Bilirubin AST ALT Alkaline Phosphatase Creatine Kinase Troponin T 0.033 Yzt-V-Vymumnkhtmp Pept Total Protein Albumin Globulin Albumin/Globulin Ratio Result Diagrams: 11/11/18 14:15 11/11/18 14:15 - EKG 1 Time of EKG reading by physician:: 14:03 EKG Read and Signed by:: Samuel Weber EKG Interpretation (*Must complete 3 of following elements*): Abnormal Rate: 149 Rhythm: Afib w/ RVR [place]: left QRS: normal MT Interval: normal ST Wave: non-specific ST changes (consider lateral ischemia) - XRAY 1 XRAY Study: Chest Impression: Abnormal (COMMENT: There is alveolar opacity with air bronchograms in the left upper lobe. This was not present on 04/03/2017. There is cardiomegaly. Given the findings on recent venous ultrasound, the possibility of a pulmonary infarct cannot be excluded. IMPRESSION: Left upper lobe opacity, pulmonary infarct versus pneumonia. Electronically signed by Matheus Hernandez 11/11/2018 2:53 PM) - CONSULTS/PCP/HOSPITALIST Notification #1 *Consult/PCP/Hospitalist*: DIANA Juarez for hospitalist Time Discussed: 16:20 Consult Disposition: Admit Departure - Departure Date of Disposition Decision: 11/11/18 Time of Disposition Decision: 17:11 DIAGNOSIS: Atrial fibrillation with RVR, Pneumonia, Dehydration, Hypotension, Hyperkalemia Disposition: ADMITTED INPATIENT 09 Certified Medical Emergency: Emergent Condition: Fair Referrals and Follow-Ups: Zach Seay MD [Primary Care Provider] - - Critical Care Note This patient required my direct & personal management of CC.: Yes Total Time (mins): 35 Critical Care Statement: This patient required my direct personal management to treat or rule out processes, the absence of which, could potentiallly result in sudden, clinically significant life or limb threatening deterioration. Attestation - Physician/ NEO Attestation Patient care was provided by Advanced Practice Provider:: No The physician spent face to face time with patient:: Yes Advanced Practice Provider documentation review:: Supervising physician onsite and consulted in the evaluation and care of this patient. The physician did have a face to face encounter with the patient. This chart was documented by the indicated scribe, (Mariama Cruz Scribe) and accurately reflects the services I performed and decisions made by me, Samuel Weber MD, as attested by the provider's signature.
[2018-11-11 17:31] LABS: CALCIUM 8.5 mg/dL (8.8-10.2); CREATININE 3.9 mg/dL (0.7-1.2); POTASSIUM 5.3 mmol/L (3.5-5.1)
[2018-11-11] MEDS: CARDIZEM 125 MG in NS 100 ML IV SCH (18:10)
[2018-11-11 18:27] LABS: UR CREAT RANDOM 170.8 mg/dL (14-26)
--- NOTE | 2018-11-11 19:16 | Diag Imaging Result Doc PS360 ---
CT ABDOMEN/PELVIS W/O CONTRAST - 11/11/2018 INDICATION: Abd pain N/V/D, septic COMPARISON: 03/29/2017 FINDINGS: There is an ill-defined infiltrate or atelectasis in the lower lobes bilaterally. Heart size is top normal. Stable severe diffuse fatty change of the liver. Stable small well-defined dense nodule suggesting hemangiomas. Stable hyperdense cyst or nodule at the anterior surface of the right kidney measuring 1.5 cm. There our couple of nonobstructing left renal stones measuring about 2 mm. No bowel obstruction or inflammation. There is asymmetric wall thickening of the anterior wall of the urinary bladder. Prostate and rectum are normal. No adenopathy. There is severe vascular disease of the abdominal aorta and its pelvic branches. There are severe degenerative changes of the spine. No acute or suspicious bony lesion. IMPRESSION: 1. Small nonobstructing left renal stones. 2. Severe, suspicious wall thickening of the anterior urinary bladder wall. Cystoscopy is recommended. 3. Ill-defined infiltrate or atelectasis in the lung bases. 4. Severe hepatic steatosis. This exam was performed using automated exposure control, adjustment of mA or kV according to patient size, and/or use of iterative reconstruction technique Electronically signed by Fred Moore 11/11/2018 7:14 PM
--- NOTE | 2018-11-11 19:43 | Diag Imaging Result Doc PS360 ---
LUNG SCAN / VQ - 11/11/2018 INDICATION: ? PE; ? Pulm infarct TECHNIQUE: 39 mCi of DTPA was used for inhalation. 6.3 mCi of MAA was used for injection. COMPARISON: Chest x-ray from earlier today FINDINGS: There is matching ventilation, perfusion, and chest x-ray abnormality focally in the lateral left upper lobe. This is compatible with a dense infiltrate due to an pneumonia. No mismatched pulmonary perfusion defects. IMPRESSION: Low probability for pulmonary embolus. Electronically signed by Fred Moore 11/11/2018 7:40 PM
--- NOTE | 2018-11-11 19:44 | HISTORY AND PHYSICAL ---
PRIMARY CARE PROVIDER: Zach Seay MD CHIEF COMPLAINT: Fever, chills, general malaise since Friday, nausea, vomiting, diarrhea on Friday, nausea, vomiting resolved on Friday, diarrhea continues. HISTORY OF PRESENT ILLNESS: Mr. Leavitt is a 58-year-old male who carries a past medical history of gout, GERD, back pain, anxiety disorder, hypertension, previous right lower extremity DVT. The patient reports since Friday he was at work he started having fever and chills. He left work early, went home, stayed in the bed. He continued to feel bad on Friday with fever and chills. Then it developed into nausea, vomiting, and diarrhea. He states that the nausea and vomiting only lasted a short while; however, he continues to have the diarrhea. He feels like he could have it at any moment. He again stayed in bed all day Friday. He went to get up to go to the shower today. Even with the assistance of a cane, he was too weak. He called his primary care provider who was not available. He went to the local med/surg who would not see him and referred him to the ED. In the ED, he was found to be septic with a white count of 44. He was also in atrial fibrillation with RVR, metabolic acidosis, hyperkalemic, acute renal failure as well as an elevated proBNP. He was initiated on the sepsis protocol. He was given IV fluid boluses, broad spectrum antibiotics. We will check a V/Q scan. His chest x-ray did show left upper lobe opacity with a pulmonary infarct versus pneumonia. We will give him 10 mg IV bolus of Cardizem, start him on a Cardizem drip. We will give him 1 push of 50 mEq of sodium bicarbonate as well as continue with lower rate IV fluids. We will initiate Zyvox given his kidney function and keep him on Rocephin. Treated his hyperkalemia per protocol. We will consult Cardiology as well. We do believe that his atrial fibrillation is secondary to his acute illness, as well as bring on Nephrology on board and Pulmonology. PAST MEDICAL HISTORY: 1. Gout. 2. Right lower extremity DVT. He is on Xarelto. 3. Hypertension. 4. Anxiety disorder. 5. Gastroesophageal reflux disease. 6. Chronic back pain on pain medications. 7. Diabetes mellitus on metformin. PAST SURGICAL HISTORY: 1. Left elbow. 2. Cholecystectomy. 3. Bilateral carpal tunnel. ALLERGIES: No known drug allergies. HOME MEDICATIONS: Have not been reconciled. REVIEW OF SYSTEMS: A 14-point review of systems is completely negative except for those mentioned in HPI. He denied chest pain. He denied palpitations, any dizziness, headache. He did complain of bilateral lower extremity pain. SOCIAL HISTORY: No tobacco, alcohol or illicit drug use. FAMILY HISTORY: No coronary artery disease. PHYSICAL EXAMINATION: VITAL SIGNS: Initial temperature was 96.6 degrees, heart rate 113, respirations 19, blood pressure 115/72, O2 is 100% on room air. GENERAL: Mr. Leavitt is a 58-year-old male who is lying on the stretcher, has a flushed appearance. Looks like he generally does not feel well but in no acute distress. HEENT: Atraumatic, normocephalic. PERRL. Mucous membranes are dry. CARDIOVASCULAR: Irregular rate and rhythm. No murmurs, gallops, or rubs noted. No JVD noted. Patient does have generalized bilateral lower extremity edema that he did report has been ongoing for a couple of months now for unknown reason. He felt maybe it was secondary to DVTs that he has been meaning to have checked out. He did have some tenderness to his left chest area upon palpitation. PULMONARY: Bilaterally decreased throughout all lung alejo. There are no wheezes, could not appreciate any rales or rhonchi. GASTROINTESTINAL: Soft, nontender, nondistended. Positive bowel sounds 4 quadrants. EXTREMITIES: No clubbing, no cyanosis. He does appear to have some peripheral vascular disease bilaterally, could not tell if there was particularly any redness to his lower extremities; however, he does appear to be flushed and reddened all over his whole body as well as warm to the touch all over. SKIN: Warm, dry and intact. NEUROLOGIC: No focal deficits noted. He is alert and oriented. Follows commands. Moves all extremities. Answers questions appropriately. No focal deficits noted. DIAGNOSTIC DATA: V/Q scan pending. EKG: Atrial fibrillation with RVR at a rate of 149 beats per minute. Chest x-ray shows left upper lobe opacity. Pulmonary infarct versus pneumonia, cardiomegaly. LABORATORY DATA: White count 41, H and H 12 and 37, platelet count is 280,000. PT 16, INR 1.24. ABG: pH of 7.28, base excess was -6.7. Lactate was 4.40. Sodium 138, potassium 6.2, BUN 42, creatinine 4.6, alkaline phosphatase 149. Troponin 0.033. ProBNP was 21,496. ASSESSMENT AND PLAN: 1. Sepsis secondary to a probable left upper lobe pneumonia. The patient has also been complaining of nausea, vomiting, and diarrhea. The nausea and vomiting have subsided. He continues with diarrhea. We will check stool studies as well as a CT of his abdomen and pelvis. We will place him on a septic protocol. Continue with IV fluid boluses as well as continue broad-spectrum antibiotics. 2. Rule out pulmonary infarct. We will order a V/Q scan, D-dimer. He does have a history of deep venous thromboses; however, he is denying any overt shortness of breath, cough. He has not been spitting up any blood. 3. Atrial fibrillation with rapid ventricular response. We will give him a 10 mg Cardizem bolus, start him on a Cardizem drip, move him to the ICU, consult Cardiology, trend his cardiac enzymes. He complains of no chest pain, no palpitations. 4. Metabolic acidosis. We will give him an amp of sodium bicarbonate, ask Nephrology to follow along, continue with aggressive hydration. 5. Acute renal failure felt to be secondary to sepsis. We will continue with aggressive IV hydration, consult Nephrology. 6. Hyperkalemia. The patient was treated in the ED with hyperkalemia protocol. We will recheck at 1800. 7. Elevated proBNP, possibly secondary to his atrial fibrillation; however, his chest x-ray does show cardiomegaly. We will check an echocardiogram in the a.m. Await cardiology's input. 8. Hypertension. We will hold any antihypertensives for now. 9. Gout, aware. 10. Chronic back pain, aware. 11. Further recommendation to follow physician evaluation, laboratory, diagnostics and consultation input. Dictated by DIANA Nguyen for Hugh Peralta MD cc: MD Zach Chauhan MD Patient seen and examined by me. I agree with the assessment and plan of the DIANA. Dr. Peralta. [facility] Alice
[2018-11-11] MEDS: ZYVOX 600 MG/D5W 600 MG/300 ML IVPB IV SCH (20:00)
[2018-11-11] MEDS ORDERED: LANOXIN IV ONE ×2 (20:03→22:00)
[2018-11-11 20:14] LABS: URINE SOURCE CATH
[2018-11-11 20:17] LABS: BILIRUBIN URINE NEGATIVE (NEGATIVE); BLOOD URINE MODERATE (NEGATIVE); COLOR YELLOW; GLUCOSE URINE NEGATIVE (NEGATIVE); KETONE URINE 10 mg/dL (NEGATIVE); LEUKOCYTES URINE NEGATIVE (NEGATIVE); NITRITE URINE NEGATIVE (NEGATIVE); PH URINE 5.5; PROTEIN URINE 70 mg/dL (NEGATIVE); SP GRAVITY URINE 1.019; TURBIDITY URINE HAZY (CLEAR); UROBILINOGEN URINE NORMAL (NORMAL)
[2018-11-11 20:24] LABS: UR EPITHELIAL CELLS <10 /HPF (<10); URINE BACTERIA NEGATIVE /HPF; URINE RBC <10 /HPF (<10); URINE WBC <10 /HPF (<10)
[2018-11-11] MEDS: LR 1,000 ML IV SCH (20:24)
[2018-11-11] MEDS: HEPARIN SUBQ SCH (20:24)
[2018-11-11] MEDS: KLONOPIN PO SCH (20:25)
[2018-11-11] MEDS: METHADONE PO SCH (20:25)
[2018-11-11] MEDS: FLOMAX PO SCH (20:25)
[2018-11-11] MEDS: HUMULIN R SUBQ SCH (20:25)
[2018-11-11 20:26] LABS: UR CREAT RANDOM 180.9 mg/dL (14-26); UR PROT RANDOM 112.9 mg/dL
[2018-11-11 20:30] LABS: URINE CASTS NONE SEEN
[2018-11-11 20:45] LABS: ALBUMIN 2.5 g/dL (3.5-5.0); CALCIUM 8.3 mg/dL (8.8-10.2); CREATININE 3.7 mg/dL (0.7-1.2); PHOSPHORUS 4.4 mg/dL (2.7-4.5); POTASSIUM 4.9 mmol/L (3.5-5.1)
[2018-11-11] MEDS: ATROVENT NEB INH SCH ×2 (21:21→21:23)
[2018-11-11] MEDS: XOPENEX NEB INH SCH ×2 (21:22)
[2018-11-11] MEDS: PULMICORT INH SCH (21:22)
--- NOTE | 2018-11-11 22:10 | HISTORY AND PHYSICAL ---
ADDENDUM Critical care time spent was 30 minutes. Dictated by DIANA Nguyen for Hugh Peralta MD cc: Hugh Peralta MD
[2018-11-12] MEDS: ATROVENT NEB INH SCH ×6 (03:13→23:05)
[2018-11-12] MEDS: XOPENEX NEB INH SCH ×6 (03:13→23:05)
[2018-11-12] MEDS ORDERED: LANOXIN IV ONE (04:00)
[2018-11-12 04:56] LABS: ALLEN TEST YES; BE -3.8 mmoll (-3.0-3.0); BLOOD TYPE ARTERIAL; METHB 1.3 % (0.0-1.5); O2(CT) 15.1 mL/dL (15.0-23.0); O2HB 96.2 % (95.0-99.0); PCO2(98.6) 39 mmHg (35-45); PO2(98.6) 94 mmHg (60-100); SAMPLE BLOOD; THB 11.1 g/dL (11.5-17.4); pH(98.6) 7.35 (7.35-7.45)
[2018-11-12 04:57] LABS: MODALITY CANNULA
[2018-11-12 05:19] LABS: INR 1.11; PROTIME 15.2 Seconds (11.0-16.0); PTT 27.4 Seconds (22.3-41.8)
[2018-11-12 06:04] LABS: BASO# 0.05 X1000 (0.0-0.2); BASO% 0.2 % (0.0-0.8); EOS# 0.27 X1000 (0.0-0.7); EOS% 1.1 % (0.0-10.0); HEMATOCRIT 33.3 % (42.0-52.0); HEMOGLOBIN 10.7 g/dL (14.0-18.0); IMM GRAN# 0.25 X1000 (0.0-0.04); IMM GRAN% 1.1 % (0.0-0.5); LYMPH# 1.66 X1000 (1.2-3.4); LYMPH% 7.1 % (20.5-51.1); MCH 28.8 PG (27-31); MCHC 32.1 g/dL (33-37); MCV 89.8 FL (81-99); MONO# 1.12 X1000 (0.11-0.59); MONO% 4.8 % (1.7-9.3); MPV 10.1 FL (7.4-10.4); NEUT# 20.14 X1000 (1.4-6.5); NEUT% 85.7 % (42.2-75.2); PLT 208 X1000 (130-400); RBC 3.71 XMIL (4.7-6.1); RDW 14.7 % (11.5-14.5); WBC 23.49 X1000 (4.8-10.8)
[2018-11-12 06:04] LABS: ALB/GLOB RATIO 0.8; ALBUMIN 2.5 g/dL (3.5-5.0); CALCIUM 8.2 mg/dL (8.8-10.2); CREATININE 3.6 mg/dL (0.7-1.2); MAGNESIUM 1.4 mg/dL (1.5-2.7); POTASSIUM 4.9 mmol/L (3.5-5.1); TOTAL BILIRUBIN 0.68 mg/dL (0.20-1.00); TOTAL PROTEIN 5.5 g/dL (6.3-8.3)
[2018-11-12] MEDS: PRILOSEC PO SCH (06:13)
[2018-11-12] MEDS: LR 1,000 ML IV SCH (06:14)
[2018-11-12] MEDS: CARDIZEM 125 MG in NS 100 ML IV SCH (06:15)
[2018-11-12] MEDS: HUMULIN R SUBQ SCH ×4 (06:24→20:15)
[2018-11-12 06:40] LABS: EOS 2 % (1-10); LYMPHS 8 % (21-51); MONO 4 % (1-9); SEGS 86 % (42-75)
--- NOTE | 2018-11-12 07:33 | Diag Imaging Result Doc PS360 ---
CHEST-PORTABLE - 11/12/2018 INDICATION: pna COMPARISON: 11/11/2018 FINDINGS: Stable dense infiltrate in the left upper lobe. Stable cardiomegaly. Stable strandy atelectasis in the right lung base. IMPRESSION: No change from prior. Electronically signed by Fred Moore 11/12/2018 7:31 AM
--- NOTE | 2018-11-12 07:39 | EKG Report ---
Test Performed on : 11/12/2018 06:51:20 AM Test Reason : afib with rvr Blood Pressure : / mmHG Vent. Rate : 062 BPM Atrial Rate : 138 BPM P-R Int : 000 ms QRS Dur : 108 ms QT Int : 402 ms P-R-T Axes : 000 -28 122 degrees QTc Int : 408 ms Atrial fibrillation. T wave abnormality, consider lateral ischemia Abnormal ECG When compared with ECG of 11-NOV-2018 14:03, (Unconfirmed) Vent. rate has decreased BY 87 BPM Unconfirmed Result
[2018-11-12] MEDS: PULMICORT INH SCH ×2 (08:10→19:15)
[2018-11-12] MEDS: ZYVOX 600 MG/D5W 600 MG/300 ML IVPB IV SCH ×2 (08:21→19:24)
--- NOTE | 2018-11-12 08:53 | CARDIOLOGY CONSULTATION ---
DATE: 11/12/2018 CHIEF COMPLAINT: Weakness, chills, nausea, vomiting, diarrhea. HISTORY OF PRESENT ILLNESS: Mr. Leavitt is a 58-year-old, male, patient of Dr. Zach Seay. The patient presented to the emergency room department yesterday at about 2 p.m. with a 3-day history of feeling ill. He said that Friday he went to work like he usually does at the [employer] shop and then over there, he started feeling somewhat ill. When he got home, he started having shaking chills and feeling weak. The next day, he experienced pains across the chest and upper back. They appeared to be somewhat pleuritic. Shoulders were hurting. His whole body was hurting. he started having nausea, vomiting and loose stools. Friday, November 11, he felt really ill and came to the emergency room. Upon presentation, they did a chest x-ray that shows left upper lobe opacity, pulmonary infarct versus pneumonia. It has a wedge shape to it. Electrocardiogram showed atrial fibrillation with rapid response and that is the reason for the cardiology consultation. A ventilation perfusion scan shows low probability for pulmonary embolus. The patient had a white count upon admission of 41,170 with left shift, 6% bands. D-dimer was 3.6. His PTT was elevated. PT was also elevated. His BUN at the time of initial encounter was 42, his 1st creatinine was 4.6. The patient was in acute renal failure. His C- reactive protein was 528.74 mg/dL indicating acute intense inflammation. A pro BNP level was 13,913. Albumin was low at 2.5. He has been started on broad spectrum antibiotics, IV fluids with Ringer's lactate. We ordered digoxin plus Cardizem drip. This morning, I am seeing him at 7:35 a.m., November 12. The patient is sitting upright. He is eating scrambled eggs and sausage. He appears to be in no distress. He is feeling definitely better. The patient states that at this time, he has some pleuritic pain at the level of the anterior chest. No other major complaints. PAST MEDICAL HISTORY: Significant for gout. He has had hypertension. He was recently admitted to [facility] on November 06 with a diagnosis of right lower extremity deep venous thrombosis. Ultrasound dated November 06 showed extensive deep venous thrombosis involving the right common femoral vein, superficial femoral vein, popliteal vein, posterior tibial vein and peroneal vein. The patient was placed on Xarelto. This was just less than a week ago. The patient has been previously admitted to the hospital with acute renal failure in the past. He has chronic pain syndrome. He is on methadone. He has gastroesophageal reflux disease. SURGICAL HISTORY: He has had cholecystectomy. He has had his elbow operated and also carpal tunnel. ALLERGIES: He has no drug allergies. HOME MEDICATIONS: At the time of this admission included: 1. Indomethacin 50 mg 3 times a day. 2. Metformin 500 twice a day. 3. Methadone 10 mg 3 times a day. 4. Omeprazole 40 mg daily. 5. Triamterene/hydrochlorothiazide 37.5/25 daily. 6. Flomax 0.8 at bedtime. 7. Clonazepam 1 mg at bedtime. 8. Clonidine 0.2 mg daily. 9. Cyclobenzaprine 10 mg twice a day. 10. Folic acid 1 mg daily. REVIEW OF SYSTEMS: Constitutional: He is chronically in pain. Cardiovascular: He denies having any previous history of heart disease. No chest pain or arrhythmias or any cardiac complication as far as he is aware of. No other positive beyond what I have reported. During this admission they did a CT of the abdomen that shows small nonobstructive left renal stones, severe suspicion of wall thickening of the anterior urinary bladder, ill-defined infiltrate or atelectasis in the lung bases and severe hepatic steatosis. FAMILY HISTORY: Mother had diabetes and . Father is still alive at age 87. He has 1 younger brother who has suffered a myocardial infarction. SOCIAL HISTORY: He has been twice and twice. He has 5 grownup children of his own. He works at a [employer] shop. He quit smoking many years ago. He only uses prescription drugs. PHYSICAL EXAMINATION: Vital signs: This morning, pulse is 73, temperature 97.8 degrees, blood pressure 116/66, respirations 22/ min He is awake, alert, oriented, in no distress. HEENT: Unremarkable. Chest: Diminished breath sounds in the left upper chest. No rales. Heart: Irregularly irregular. No gallop or murmur. Abdomen: Nontender, soft. No masses or hepatomegaly. Extremities: Showed decreased pulses. Trace brawny edema. Neurologic: Nonfocal. Moves 4 extremities. DIAGNOSTIC DATA: 12 lead EKG done yesterday at 2:03 p.m. showed atrial fibrillation, left anterior fascicular block. Nonspecific T-wave abnormality. The rate was 149. This morning, heart rate is 62 beats per minute with atrial fibrillation and nonspecific ST-T in lateral leads. Chest x-ray done today has been reported as indicating no change from the prior one. Echocardiogram that was done last night which I have reviewed. My impression is that his left ventricular ejection fraction is normal. His right ventricle did not appear to be dilated. He does not seem to have any significant valvular abnormality. IMPRESSION: 1. Patient presenting with what appears to be a left upper lobe Pneumonia/pulmonary infarction with possible early lung abscess. 2. Acute renal failure, probably a combination of dehydration plus multiple drugs that could lead to renal decompensation. 3. History of hypertension. 4. History of gout. 5. Diabetes mellitus type 2. 6. Chronic pain syndrome. RECOMMENDATION: At this point, we will support the patient with intravenous fluids. I have ordered Ringer's lactate. We need to rehydrate this patient. All the possible offending nephrotoxic drugs have to be put on hold. Cardiac-hayden, I would probably initiate low-dose beta blockade once the patient is in a more euvolemic state. He has received 3 doses of digoxin which thus far, in combination with low-dose Cardizem, have controlled his heart rate. Since he does not have any overt systolic heart failure, we could use low-dose diltiazem to control the rate until this acute illness is controlled. I will request a CT scan of the chest without contrast to better delineate the pathology of the left upper lobe which I am afraid could relate to an infarcted segment of lung, probably in connection with his recent deep venous thrombosis which may have become secondarily infected . We will discuss this with the Pulmonary python consultant team. cc: Austin Melton MD [facility] MEDICAL CENTERMary Alice
[2018-11-12] MEDS ORDERED: ROCEPHIN 1 GM in NS 50 ML IV SCH (09:00)
[2018-11-12] MEDS ORDERED: LANOXIN IV SCH (09:00)
--- NOTE | 2018-11-12 09:01 | Diag Imaging Result Doc PS360 ---
EXAM: CT THORAX W/O CONTRAST - 11/12/2018 HISTORY: suspect lung abscess/ TECHNIQUE: CT thorax without contrast. No contrast administered per request of the referring provider. COMPARISON: 03/29/2017 FINDINGS: There is cardiomegaly. There is a 7.4 x 6.4 cm density with lobulated margins at the left upper lobe. This extends from the superior perihilar region to the lateral pleural margin. This contains air bronchograms. This may represent pneumonia, or a mass lesion such as bronchial alveolar carcinoma. There is no fluid or gas collection within the lesion identified to suggest abscess. There are multiple nonspecific small mediastinal lymph nodes. There are calcified right hilar lymph nodes from old granulomatous disease. There are small bilateral pleural effusions. There is bilateral dependent atelectasis. Included sections of upper abdomen show fatty infiltration visualized portion of the liver. There has been prior cholecystectomy. IMPRESSION: 7.4 x 6.4 cm left upper lobe density, extending from the hilum to the lateral pleural margin. Considerations include pneumonia and mass lesion, such as bronchial alveolar carcinoma. There is no evidence of abscess. There are multiple nonspecific small mediastinal lymph nodes. Cardiomegaly. Small bilateral pleural effusion. Bilateral dependent atelectasis. This exam was performed using automated exposure control, adjustment of mA or kV according to patient size, and/or use of iterative reconstruction technique. Electronically signed by Romero Ingram 11/12/2018 8:58 AM
[2018-11-12] MEDS: FOLIC ACID PO SCH (09:52)
[2018-11-12] MEDS: HEPARIN SUBQ SCH ×2 (09:52→20:14)
[2018-11-12] MEDS: METHADONE PO SCH ×3 (09:52→20:14)
[2018-11-12] MEDS ORDERED: NS 1,000 ML IV SCH (14:30)
--- NOTE | 2018-11-12 14:53 | NEPHROLOGY CONSULTATION ---
DATE: 11/12/2018 REASON FOR ADMISSION: Fever, chills, malaise associated with nausea, vomiting, and diarrhea since last Friday. REASON FOR CONSULTATION: Acute kidney injury on CKD. CONSULTING PHYSICIAN: Dr. Peralta. HISTORY OF PRESENT ILLNESS: Mr. Leavitt is a 58-year-old white male who has been seen by our services in the past in 2017 for acute kidney injury, at which time this had resolved and the patient had returned to his baseline creatinine of 1.2. He states that since Friday, he had been at work and started having fever and chills, left work early, went home, has been staying in bed. Friday, he continued with his fever and chills, developed nausea, vomiting, and diarrhea. The nausea and vomiting continued until yesterday, at which time the diarrhea has worsened. He states that he was very weak and could hardly get up to do any of his activities of daily living. He called his primary care physician, Dr. Zach Seay, who was not available. He was then referred to [facility] Emergency Department. In the ER, he was found to be septic with a white count of 44. He was found to be in atrial fibrillation with RVR, new onset. He had metabolic acidosis, hyperkalemia, and acute renal failure. At that time, his BUN was 42, with a creatinine of 4.6. Due to these findings, the patient was started on a Cardizem drip with LR at 125 mL an hour. Cardiology was consulted. He was sent for a V/Q scan. Chest x-ray showed left upper lobe opacity with pulmonary infarct versus pneumonia. V/Q scan was negative for pulmonary emboli. The patient was treated with an amp of sodium bicarbonate, and treated for his hyperkalemia per protocol of D50 insulin and albuterol inhaler. He was subsequently transferred to ICU, and is currently being monitored with a Cardizem drip. PAST MEDICAL HISTORY: Chronic kidney disease stage 3 (baseline creatinine of 1.2), gout, right lower extremity DVT (he is on outpatient Xarelto), hypertension, anxiety disorder, gastroesophageal reflux disease, chronic back pain (on back pain medications), diabetes mellitus (the patient is on outpatient metformin). PAST SURGICAL HISTORY: Left elbow, cholecystectomy, bilateral carpal tunnel. FAMILY HISTORY: Negative for kidney disease. ALLERGIES: No known drug allergies. HOME MEDICATIONS: Methadone, Klonopin, Glucophage, Prilosec, Catapres, triamterene/hydrochlorothiazide, though he states that he has just recently come off of this, oxycodone, Flomax, folic acid, indomethacin, and cyclobenzaprine. REVIEW OF SYSTEMS: Review of systems x10 with pertinent positives listed above in the HPI. IMAGING: The patient did have a CT of the abdomen and pelvis upon admission. This was without contrast. No mention of the sizes of the kidneys. It did mention that he has a left renal stone measuring 2 mm, indicating no obstruction. Previous renal ultrasound in 2017 did not indicate anything but an atrophic left kidney. This was not mentioned on CT of the abdomen and pelvis. LABORATORY DATA: Sodium 139, potassium 4.9, chloride 103, CO2 of 18, BUN 50, creatinine 3.6, glucose 107, anion gap of 18, calcium 8.2, phosphorus 4.4, albumin is 2.5. White count 23.49 this morning, hemoglobin 10.7, hematocrit 33.3, with a platelet count of 208,000. ABGs show pH 7.35, CO2 of 39, PO2 of 94, bicarb 22 on 3 L. His lactate is 1.8. His fractionated urea score on his initial exam showed a level of 5.81%, indicating the patient is prerenal. PHYSICAL EXAMINATION: Most recent vital signs: Temperature 97.8 degrees, blood pressure 124/65, heart rate 64, respirations 20, he is on 2 L nasal cannula, last recorded saturation is 97%. He has had 2255 in. He has only had 100 mL out in the last 24 hours. General: This is a 58-year- old white male, resting quietly in bed. He is in no acute distress, though he appears chronically ill. Skin: Warm and dry. HEENT: Normocephalic, atraumatic. Conjunctiva is pale. He has JOHN. Mucous membranes are dry. Neck: Supple. Trachea midline. There is no evidence of JVD. Cardiovascular: Irregular rate and rhythm. This does speed up and slow down during our evaluation. The patient states that he has had some bilateral lower extremity edema that waxes and wanes, history of a DVT, currently on Xarelto. He does have some tenderness to the left chest area upon palpation. Pulmonary: His lung alejo are currently clear to auscultation. Remains on O2. Abdomen: Soft, nontender. Positive bowel sounds. Genitourinary: Yan catheter is in place with minimal urine out. Extremities: He has trace pretibial edema. No clubbing or cyanosis. He does have particular redness to his bilateral lower extremities. Integumentary: His skin does appear to be slightly flushed. He is warm to touch. Neurological: Alert and oriented x3. ASSESSMENT AND PLAN: 1. Acute kidney injury on chronic kidney disease stage 3. The patient's historical baseline creatinine is 1.2. More than likely, this is multifactorial secondary to a new onset of sepsis. He has been hypotensive. He has a new onset of atrial fibrillation. The patient has a fractionated urea score of 5.81%. We are awaiting pending renal ultrasound. We will continue his intravenous fluids. We will change this to normal saline at 125 mL an hour. We will monitor his output over the next 24 hours. There is no acute indication of need for dialysis at this time. 2. Sepsis secondary to probable left upper lobe pneumonia. The patient is on sepsis protocol. He has received 2 units of intravenous fluid bolus. He remains on broad-spectrum antibiotics, renally dosed. 3. Rule out pulmonary infarct. His D-dimer was elevated. His V/Q scan was negative. History of deep venous thrombosis. 4. Electrolytes and acid-base balance. These are acceptable. 5. Anemia. This remains acceptable. 6. Elevated BNP. More than likely, this is related to his atrial fibrillation. Cardiology has been consulted. I would like to thank you for allowing us to follow with this patient. Dictated by DIANA Royal for Jeffy Rosales MD cc: DIANA Royal MD
[2018-11-12] MEDS: NS 1,000 ML IV SCH ×2 (15:08→23:18)
--- NOTE | 2018-11-12 15:19 | Diag Imaging Result Doc PS360 ---
US RENAL 2 (RETROPER) COMPLETE - 11/12/2018 INDICATION: ROBBIE TECHNIQUE: COMPARISON: CT abdomen pelvis 11/11/2018 FINDINGS: Detail is poor. There is a small echogenic nodule at the anterior right kidney midpole, at the renal cortex. This measures about 1.6 x 1.2 cm. There is no hydronephrosis. The right kidney measures 10 x 6.7 x 4.5 cm. The left kidney measures 8.6 x 7.3 x 4.3 cm. Urinary bladder is obscured. IMPRESSION: Small echogenic cyst or solid nodule in the right kidney midpole. Electronically signed by Fred Moore 11/12/2018 3:17 PM
--- NOTE | 2018-11-12 15:25 | EKG Report ---
Test Performed on : 11/11/2018 2:10:25 PM Test Reason : ED. No order in [place] Blood Pressure : / mmHG Vent. Rate : 098 BPM Atrial Rate : 098 BPM P-R Int : 120 ms QRS Dur : 102 ms QT Int : 364 ms P-R-T Axes : 016 -26 180 degrees QTc Int : 464 ms Normal sinus rhythm. Inferior infarct , age undetermined ST & T wave abnormality, consider lateral ischemia Abnormal ECG When compared with ECG of 11-NOV-2018 14:03, (Unconfirmed) Sinus rhythm. has replaced Atrial fibrillation. Vent. rate has decreased BY 51 BPM Nonspecific T wave abnormality now evident in Inferior leads T wave inversion more evident in Lateral leads Unconfirmed Result
[2018-11-12] MEDS ORDERED: ROCEPHIN 2 GM in NS 50 ML IV SCH (16:46)
[2018-11-12] MEDS ORDERED: NS 0 ML ONE (17:26)
--- NOTE | 2018-11-12 17:40 | PROGRESS NOTE ---
DATE: 11/12/2018 SUBJECTIVE: Patient resting in bed. Not in any obvious distress. OBJECTIVE: Vital signs: Temperature is 98.1 degrees, pulse 81, respiratory rate 14, blood pressure is 121/54, oxygen saturation is 97%. HEENT: Atraumatic, normocephalic. Cardiovascular: S1, S2, tachycardic. Respiratory: Has evidence of good air entry bilaterally. Abdomen: Soft, nontender. No masses felt. Extremities: Has 1+ edema in the lower extremities. Central nervous system: No obvious focal deficits noted. DIAGNOSTIC STUDIES: WBC 23.49, hematocrit is 33.3 with a platelet count of 208,000. INR is 1.1. ABG 7.35/39/94/99%. Sodium is 139, potassium 4.9, chloride is 103, bicarbonate is 18, BUN is 50, creatinine 3.6, magnesium level is 1.4, calcium level is 8.2. Chest CT shows evidence of a 7.4 x 6.4 left upper lobe density extending from the hilum to the lateral pleural margin. Differentials include pneumonia versus probable bronchioloalveolar carcinoma. ASSESSMENT AND PLAN: 1. Sepsis. We will maintain patient on intravenous fluids. Serum lactate level at the time of presentation was as high as 5.3. I do agree with changing fluids to normal saline at this time. We will also need to maintain patient on antibiotics and also follow up on cultures. 2. Left upper lobe density. Differentials include pneumonia versus mass lesion. Of note, CT scan of the chest also shows multiple nonspecific small mediastinal lymph nodes. For now, we will treat as a case of pneumonia. We will also involve the pulmonary team to closely follow patient as this may be a pathology other than pneumonia. 3. History of deep vein thrombosis (DVT). The patient did have a deep venous thrombosis in the lower extremity sometime last year in 2018 around October, and I have gone ahead to request a repeat venous Doppler study. 4. Cough acute kidney injury. Nephrology has been consulted. 5. Atrial fibrillation with rapid ventricular rate. Cardiology is following. 6. Elevated proBNP level. The patient will need a 2D echocardiogram. Cardiology following. 7. Hypomagnesemia. We will give 2 g magnesium and follow up on magnesium level. 8. Deep vein thrombosis (DVT) prophylaxis. Heparin. 9. Gastrointestinal (GI) prophylaxis. PPI. cc: Hugh Peralta MD
--- NOTE | 2018-11-12 18:08 | INFECTIOUS DISEASE CONSULT REP ---
DATE: 11/12/2018 CONCLUSION: I think the patient has pneumonia and it is being treated well with the current antibiotics, in view of the fact that the patient's white count has fallen dramatically from 41,000 to 23,490 white blood cells. The patient definitely has an altered mental status, the exact etiology of which I am uncertain. It is possible that he could have central nervous system involvement with the organism causing the patient's pneumonia. RECOMMENDATIONS: Since the white count is falling, I suggest that we stay with Zyvox and Rocephin. I have, however, increased the dose of Rocephin to 2 g IV every 12 hours. DISCUSSION: The patient is unable to provide a history. No family member is present. According to the chart, the patient about 4 days ago started having fever and chills. He had also nausea, vomiting, and diarrhea. He has been admitted to the intensive care unit at [facility]. He was found to have atrial fibrillation, metabolic acidosis, hyperkalemia, and acute renal failure. The laboratory studies done today include a CBC that had a white blood cell count of 23,490, hemoglobin 10.7, and platelet count 208,000. Arterial blood gases showed a pH of 7.35, a pO2 of 94, and a pCO2 of 39. Creatinine is 3.6. GFR is 18. Alkaline phosphatase is 124. Urinalysis was negative for white blood cells and bacteria. Chest CT scan showed a left upper lobe 7.4 x 6.4 cm density. Renal ultrasound showed a small cyst and nodule on the right kidney. CT scan of the abdomen and pelvis showed a left renal calculus, bibasilar pulmonary infiltrates, and a thickened bladder wall. PAST MEDICAL HISTORY: Positive for: 1. Gout. 2. Right leg deep venous thrombosis. 3. Hypertension. 4. Anxiety disorder. 5. Gastroesophageal reflux disease. 6. Chronic back pain. 7. Diabetes mellitus. PAST SURGICAL HISTORY: Positive for: 1. Left elbow surgery. 2. Cholecystectomy. 3. Bilateral carpal tunnel surgeries. ALLERGIES: The patient has no known drug allergies his. MEDICATIONS: His medications taken at home include: 1. Klonopin. 2. Catapres. 3. Cyclobenzaprine. 4. Indomethacin. 5. Metformin. 6. Methadone. 7. Omeprazole. 8. Oxycodone. 9. Flomax. 10. Triamterene/hydrochlorothiazide. SOCIAL HISTORY: There is no history of cigarette smoking, alcohol intake, or illicit drug use. REVIEW OF SYSTEMS: Unable to obtain. FAMILY HISTORY: There is no coronary artery disease. PHYSICAL EXAMINATION: Vital Signs: Temperature is 99 degrees, pulse 81, respirations 14, blood pressure 121/64. The patient is 5 feet 9 inches tall and weighs 241 pounds. General: This is an obese, middle-aged male who has somewhat of an erythematous skin on the face, arms and chest that I do not think is due to cellulitis. The patient appears to be in a delirium. HEENT: There is no drainage from the nose or ears. There are no white patches on the tongue. The patient's sinuses are not tender. Neck: No meningismus. Lungs: Clear to auscultation. Cardiovascular: Heart rate is regular. Abdomen: Soft and nontender. Neurologic: The patient is awake. He did move his arms and legs to request. When I asked him a question, he was unable to answer it. He was not oriented as to time or place. Bones, Joints, Muscles: There is no swollen joint or muscle tenderness. Thank you for the consult. cc: Lenin Stanford MD
[2018-11-12] MEDS: ROCEPHIN 2 GM in NS 50 ML IV SCH (18:25)
--- NOTE | 2018-11-12 18:54 | CONSULTATION ---
DATE OF CONSULTATION: 11/12/2018 REQUESTING PROVIDER: DIANA De Paz. REASON FOR CONSULTATION: Pneumonia, possible pulmonary infarct. HISTORY OF PRESENT ILLNESS: This is a 58-year-old male with medical history of diabetes mellitus type 2, hypertension, right lower extremity DVT, gastroesophageal reflux disease, chronic back pain, anxiety, gout. He presented to the ER yesterday with fever or chills, general malaise, nausea, vomiting, diarrhea. Initial workup in the ER revealed sepsis secondary to a probable left upper lobe pneumonia, Atrial fibrillation with rapid ventricular response, metabolic acidosis, acute renal failure, hyperkalemia, and elevated proBNP. He has been admitted to the ICU for further evaluation and management. At the time of my examination, patient is lying in the bed comfortably without acute distress noted, but he apparently is very drowsy. As I talk to him, he opens his eyes immediately, but closes his eyes and falls back to sleep in less than 30 seconds. He states he is feeling better. He does have some chest pain, but he has no cough. PAST MEDICAL AND SURGICAL HISTORY: 1. Diabetes mellitus, on metformin. 2. Hypertension. 3. Right lower extremity DVT, on Xarelto. 4. Gastroesophageal reflux disease. 5. Chronic back pain, on Percocet 10. 6. Anxiety. 7. Gout. 8. Left elbow surgery. 9. Cholecystectomy. 10. Bilateral carpal tunnel, bilateral carpal tunnel surgery. SOCIAL HISTORY: Per H&P, he was a former smoker and quit smoking many years ago. He has no alcohol or illicit drug use. FAMILY HISTORY: Per H&P, positive for diabetes and heart disease. REVIEW OF SYSTEMS: Difficult to be obtained. PHYSICAL EXAMINATION: Vital Signs: Temperature 98.1, blood pressure 94/58, pulse 87, respiratory rate 15. Oxygen saturation 95% on nasal cannula at 2L. HEENT: Atraumatic. Trachea midline. Mucosa pink and slightly dry. Respiratory: Lung expansion equal bilaterally. Auscultation reveals diminished breathing sounds bibasilarly with crackles in the left lower lung zone. Cardiovascular: Regular rate with S1 and S2 noted. Gastrointestinal: Normoactive bowel sounds in all 4 quadrants. Soft and mildly distended. Extremities: Bilateral lower extremity trace edema. No cyanosis. No clubbing. Dorsalis pedis 1+ bilaterally. Neurologic: Alert and oriented x 3, but apparently drowsy. Speech fluent and follow commands. IMAGING DATA: CT chest reveals 7.4 x 6.4 cm left upper lobe density extending from the hilum to the lateral pleural margin. Considerations including pneumonia and mass lesion, such as bronchioalveolar carcinoma. No evidence abscess. There are multiple nonspecific small mediastinal lymph nodes. LAB DATA: White blood cell 23.49, hemoglobin 10.7, hematocrit 33.3, platelets 208,000. Sodium 139, potassium 4.9, chloride 103, carbon dioxide 18, BUN 50, creatinine 3.6, glucose 107. ABG: pH 7.35, pCO2 of 39, PO2 94, HC03 22.0, base excess -3.8 and oxyhemoglobin 96.2. ASSESSMENT: This is a 58-year-old male with a medical history of diabetes mellitus type 2, hypertension, right lower extremity DVT, gastroesophageal reflux disease, chronic back pain, anxiety and gout. He has been admitted to the ICU with sepsis secondary to probable left upper lobe pneumonia, rule out pulmonary infarct, atrial fibrillation with rapid ventricular response, metabolic acidosis, acute renal failure secondary to sepsis, hypokalemia, elevated proBNP 1. Respiratory distress. 2. Left upper lobe pneumonia with mass lesion. 3. Rule out pulmonary infarct. 4. Atrial fibrillation with rapid ventricular response. 5. Acute renal failure. 6. Elevated proBNP. PLAN: 1. Continue supplemental oxygen as needed. 2. Continue antibiotics and bronchodilators. 3. CT biopsy in plan. 4. Follow up with ABG, CBC, BMP and chest x-ray. 5. Dr. Melton and Dr. Rosales on board. 6. Continue GI and DVT prophylaxis. 7. Further recommendations pending hospital course. Thank you for the courtesy of this consult. Dictated by DIANA Moss for Adrienne Schilling MD cc: DIANA Moss MD [facility]
[2018-11-12] MEDS: FLOMAX PO SCH (20:13)
[2018-11-12] MEDS: KLONOPIN PO SCH (20:14)
[2018-11-13] MEDS: XOPENEX NEB INH SCH ×6 (03:20→23:09)
[2018-11-13] MEDS: ATROVENT NEB INH SCH ×6 (03:20→23:09)
[2018-11-13] MEDS: PRILOSEC PO SCH (06:15)
[2018-11-13] MEDS: ROCEPHIN 2 GM in NS 50 ML IV SCH ×2 (06:15→16:47)
[2018-11-13] MEDS: HUMULIN R SUBQ SCH ×4 (06:17→20:27)
[2018-11-13 06:45] LABS: ALBUMIN 2.5 g/dL (3.5-5.0); CALCIUM 7.9 mg/dL (8.8-10.2); CREATININE 3.2 mg/dL (0.7-1.2); PHOSPHORUS 4.9 mg/dL (2.7-4.5)
[2018-11-13] MEDS: ZYVOX 600 MG/D5W 600 MG/300 ML IVPB IV SCH ×2 (07:55→20:53)
[2018-11-13] MEDS: NS 1,000 ML IV SCH ×2 (07:55→12:27)
[2018-11-13] MEDS: METHADONE PO SCH ×4 (07:56→20:53)
[2018-11-13] MEDS: FOLIC ACID PO SCH ×2 (07:56→09:12)
[2018-11-13] MEDS: PULMICORT INH SCH ×2 (08:08→20:18)
--- NOTE | 2018-11-13 08:08 | EKG Report ---
Test Performed on : 11/13/2018 08:02:25 AM Test Reason : paroxysmal atrial fibrillation Blood Pressure : / mmHG Vent. Rate : 094 BPM Atrial Rate : 094 BPM P-R Int : 188 ms QRS Dur : 118 ms QT Int : 374 ms P-R-T Axes : 011 -23 110 degrees QTc Int : 467 ms Normal sinus rhythm. Nonspecific intraventricular conduction delay ST & T wave abnormality, consider lateral ischemia Abnormal ECG When compared with ECG of 12-NOV-2018 06:51, (Unconfirmed) Sinus rhythm. has replaced Atrial fibrillation. Vent. rate has increased BY 32 BPM T wave inversion less evident in Lateral leads QT has lengthened Unconfirmed Result
--- NOTE | 2018-11-13 08:36 | INFECTIOUS DISEASE PROGRESS NO ---
DATE: 11/13/2018 PRESENT ILLNESS: The patient has pneumonia and an altered mental status. He seems to be improving clinically. MEDICATIONS: The patient is on a combination of Rocephin and Zyvox. This is day 2 of treatment with the antibiotics. PHYSICAL EXAMINATION: Vital Signs: Temperature is 98 degrees, pulse 95, respirations 18, blood pressure 144/70. General: This is a somewhat ill-appearing, middle-aged male. He is in no acute distress. Integument: He does not seem as flushed as he did yesterday. Head/eyes/ears/nose/throat: He can hear my spoken words and see near objects. He does not have any white patches on his tongue. Neck: No stiffness. Lungs: Clear to auscultation. Cardiovascular: Heart rate is regular. Abdomen: Soft and nontender. Neurologic: The patient can move his extremities. There is no tremor. He was oriented as to place and person. At times, he seemed to be a little confused, but overall his sensorium I think is much better than yesterday. LABORATORY AND X-RAY: Blood cultures remain negative. Creatinine is 3.2, GFR is 20. There is no CBC or chest x-ray for today. ASSESSMENT AND PLAN: Patient has pneumonia and his altered mental status is improving. I would suggest continuing with the current antibiotics namely Zyvox and Rocephin. I have ordered a CBC, BMP and chest x-ray for FridayNovember 16. COMORBIDITIES: He is diabetic. He has an anxiety disorder. He also has gastroesophageal reflux disease. cc: Lenin Stanford MD
[2018-11-13] MEDS: LOPRESSOR PO SCH ×3 (09:13→20:53)
[2018-11-13] MEDS: CARDIZEM PO SCH ×3 (09:13→20:53)
--- NOTE | 2018-11-13 09:55 | ECHO REPORT ---
ORDER DATE: 11/11/2018 INDICATION: Paroxysmal atrial fibrillation. Possible pulmonary infarction versus pneumonia. Recent episode of extensive deep venous thrombosis, right leg, 11/06/2017. M-MODE MEASUREMENTS: Left ventricle end diastole: 4.8. Left ventricle end systole: 3.7. Posterior wall: 1.1. Interventricular septum: 1.1. Left atrium: 4.0. Aortic root: 3.5. SUMMARY OF 2-DIMENSIONAL IMAGING: The study is difficult. 1. The left ventricular systolic function appears to be normal. Ejection fraction of 57%. No wall motion abnormality is noted. 2. The right ventricle appears to be normal. 3. The aortic valve looks normal. Color flow mapping unremarkable. 4. The mitral valve looks normal. Color flow mapping unremarkable. 5. Pulsed wave Doppler of mitral inflow shows single filling waveform. 6. Tricuspid valve shows mild degree of regurgitation. The inferior vena cava was suboptimally visualized. It did not appear to be dilated. 7. Pulmonary pressure estimated at 22 to 27 mmHg. 8. There is no pericardial effusion, mass, and no thrombus. 9. Pulmonic valve is normal. SUMMARY: This study shows: 1. Normal left ventricular systolic function. The patient is very tachycardic. 2. Normal right ventricle. 3. Normal pulmonary pressure. 4. No evidence of any significant valvular abnormality. 5. The study does not support a suspicion of significant pulmonary embolism. Please take notice that Definity was injected to opacify the left ventricular chamber. cc: Austin Melton MD MTDD
--- NOTE | 2018-11-13 09:57 | CARDIOLOGY PROGRESS NOTE ---
DATE: 11/13/2018 CHIEF COMPLAINT: Irregular heart beat, shortness of breath, and weakness. SUBJECTIVE: Mr. Leavitt is basically feeling a whole lot better. He has converted to sinus rhythm. He suffered episode of DVT in October 2017 (I mistakenly dictated 2019 in my consultation). Dr. Schilling has scheduled him for a lung biopsy today. OBJECTIVE: Vital Signs: Blood pressure is 144/70, temperature is 98 degrees, pulse 95, and respirations 18. General: The patient is awake, alert, and oriented, in no distress. HEENT: Unremarkable. Chest: Diminished breath sounds in the left upper lobe. Heart: Sounds regular and rhythmic. I do not hear a gallop or murmur. Abdomen: Obese. Extremities: Show no edema. Neurologic: Follows commands. Moves all four extremities. BLOOD WORK: His BUN has gone up to 55, creatinine is down to 3.2. Sodium and potassium are normal. His white cell count has not been checked today. Thus far his cultures are negative. Her echocardiogram which I read yesterday showed no obvious abnormalities. IMPRESSION: 1. Patient who presented with weakness, dyspnea, and acute renal failure and was found in paroxysmal atrial fibrillation. He has converted spontaneously to sinus rhythm. 2. Patient with a left upper lobe pneumonia/mass. 3. Acute renal failure on top of chronic kidney dysfunction. 4. Suspect sepsis syndrome. 5. Chronic pain syndrome. 6. History of Deep venous thrombosis right leg in October 2017 (over 1 yr ago). RECOMMENDATIONS: At this point in time the patient will be placed on low-dose metoprolol and low- dose diltiazem. The patient from my viewpoint does not need any further cardiac testing. This patient may be at significantly higher risk of having recurrent DVT and possibly pulmonary embolism if neoplasm is found in the lung. Consideration may be given at placing him on extermination inspector Rx with anticoagulant. At this time I am signing off. Please call me if further assistance is needed. cc: MD KATHRIN Smith
--- NOTE | 2018-11-13 09:58 | NEPHROLOGY PROGRESS NOTE ---
DATE: 11/13/2018 SUBJECTIVE: Patient is sitting up in bed stating he is in some pain today. OBJECTIVE: Vital Signs: Temperature 98.1 degrees, pulse 95, respiratory rate 20, blood pressure 156/79. Intake 4 L; output 825 mL. General: This is a middle-aged gentleman sitting up in the bed. He is in no acute distress. HEENT: Normocephalic, atraumatic. Oral mucosa dry. JOHN. Neck: Supple without JVD. Cardiovascular: Regular rate and rhythm. No murmur or gallop. Pulmonary: Clear bilaterally with decreased breath sounds to the bases. Abdomen: Soft, positive bowel sounds. Tender to the upper quadrants. : Yan catheter. Clear yellow urine. Extremities: There is 2+ to 3+ edema, lower extremities. He has some periorbital edema as well. No clubbing, cyanosis. He is moving extremities. Integumentary: Skin is warm and dry. LAB DATA: Sodium 141, potassium 4.0, CO2 23, creatinine 3.2, calcium 7.9, albumin 2.5. ASSESSMENT AND PLAN: 1. Acute on chronic kidney disease. Renal function with some modest improvement overnight. We will continue his current treatment plan. 2. Sepsis, probable left upper pneumonia. Appropriately dosed antibiotics. Followed by Infectious Disease. 3. Electrolytes, acid-base balance, anemia. Stable. 4. Ultrasound with an echogenic cyst or solid nodule to the right kidney midpole. He needs to follow with Urology. Dictated by DIANA Black for Jeffy Rosales MD cc: Jeffy Rosales MD
--- NOTE | 2018-11-13 10:28 | Diag Imaging Result Doc PS360 ---
EXAM: CHEST-2 VIEWS 11/13/2018 HISTORY: POST LEFT LUNG BIOPSY TECHNIQUE: Inspiratory expiratory chest COMMENT: There is no evidence of pneumothorax. Compared to the previous study of 11/12/2018 the opacity in the left upper lobe has diminished in size. There is some atelectasis in the right middle lobe which was also present previously. IMPRESSION: No evidence of pneumothorax following biopsy. Improving left upper lobe pneumonia. Electronically signed by Matheus Hernandez 11/13/2018 10:26 AM
--- NOTE | 2018-11-13 10:58 | Diag Imaging Result Doc PS360 ---
EXAM: CT GUIDED BIOPSY LUNG 11/13/2018 HISTORY: Lung mass TECHNIQUE: CT-guided left upper lobe biopsy. COMMENT: The risks and benefits of the procedure including the possibility of bleeding, infection, reaction to lidocaine, pneumothorax were discussed with the patient and he agreed to the procedure. Following sterile preparation the skin in the upper left anterior chest and administration 1% lidocaine to the skin and deeper soft tissues, a 20-gauge Temno coaxial core biopsy needle was employed to obtain three cores from the lesion. There are no immediate complications. IMPRESSION: Successful CT-guided lung biopsy. Electronically signed by Matheus Hernandez 11/13/2018 10:55 AM
[2018-11-13] MEDS: PERCOCET-10 PO PRN (12:27)
[2018-11-13 13:19] LABS: BASO# 0.04 X1000 (0.0-0.2); BASO% 0.4 % (0.0-0.8); EOS# 0.36 X1000 (0.0-0.7); EOS% 3.3 % (0.0-10.0); HEMOGLOBIN 9.7 g/dL (14.0-18.0); IMM GRAN# 0.05 X1000 (0.0-0.04); IMM GRAN% 0.5 % (0.0-0.5); LYMPH# 1.61 X1000 (1.2-3.4); LYMPH% 14.5 % (20.5-51.1); MCH 28.4 PG (27-31); MCHC 31.3 g/dL (33-37); MCV 90.6 FL (81-99); MONO# 0.63 X1000 (0.11-0.59); MONO% 5.7 % (1.7-9.3); MPV 10.9 FL (7.4-10.4); NEUT# 8.38 X1000 (1.4-6.5); NEUT% 75.6 % (42.2-75.2); PLT 255 X1000 (130-400); RBC 3.42 XMIL (4.7-6.1); RDW 14.6 % (11.5-14.5); WBC 11.07 X1000 (4.8-10.8)
[2018-11-13 13:54] LABS: LYMPHS 16 % (21-51); MONO 4 % (1-9); SEGS 76 % (42-75)
--- NOTE | 2018-11-13 14:18 | Diag Imaging Result Doc PS360 ---
EXAM: CHEST-2 VIEWS 11/13/2018 HISTORY: s/p CT guided lung biopsy TECHNIQUE: Inspiratory expiratory chest at 1407 COMMENT: There is no evidence of pneumothorax or pleural fluid collection. The atelectasis on the right is again noted. The alveolar opacity in the left upper lobe continues to improve. IMPRESSION: Improving left upper lobe pneumonia. Electronically signed by Matheus Hernandez 11/13/2018 2:16 PM
--- NOTE | 2018-11-13 15:46 | Extremity Venous Study ---
PROCEDURE NAME: Venous U/S Bilateral Legs - 11/11/2018 REFERRING PHYSICIAN: Hugh Peralta MD READING PHYSICIAN: Bret Mancera MD [employer]MENT ASSOCIATE: [place]. INDICATION: Leg swelling, possible PE, and history of right leg DVT. There is comparison study on 11/06/2017. FINDINGS: The right common femoral, superficial femoral, deep femoral, greater saphenous, popliteal, posterior tibial, and peroneal veins were imaged first, then the left common femoral, deep femoral, superficial femoral, greater saphenous, popliteal, posterior tibial, and peroneal veins were imaged next. On the right side, there is chronic thrombus in the distal superficial femoral vein, distal superficial femoral and popliteal veins, however, they are compressible with some flow through these areas. The remaining veins described above are compressible, patent and without thrombus. There is also reflux noted in the right common femoral and superficial femoral veins for 2.6 seconds in the common femoral vein and 1.8 seconds in the superficial femoral vein. INTERPRETATION: There is chronic deep venous thrombosis with recanalization of the right superficial femoral and popliteal veins. There is reflux of the deep veins on the right side. Overall, this is improved compared to the prior study on 11/06/2017. cc: Bret Mancera MD
--- NOTE | 2018-11-13 16:13 | PROGRESS NOTE ---
DATE: 11/13/2018 SUBJECTIVE: The patient is seated on the chair doing much better today. OBJECTIVE: Vital signs: Temperature 98.2 degrees, pulse 93, respiratory 16, oxygen saturation 97%. HEENT: Atraumatic, normocephalic. Cardiovascular: S1, S2. Respiratory: Has evidence of good air entry bilaterally. Abdomen: Soft, nontender, no masses felt. Extremities: Has about 1 to 2+ edema in the lower extremities. Central nervous system: No obvious focal deficit noted. LABS: WBC 11.07, hematocrit is 31.0 with a platelet count of 255,000, sodium is 141, potassium 4.0, bicarb 23, BUN is 55, creatinine is 3.2. X-ray chest shows improving left upper lobe pneumonia. ASSESSMENT AND PLAN: 1. Sepsis secondary to pneumonia. Continue intravenous fluids and follow up on cultures. 2. Pneumonia involving the left lung. Continue antibiotic as recommended by ID. 3. History of deep vein thrombosis. Venous doppler pending. Suspect findings to be that of chronic disease. 4. Acute kidney injury. Nephrology is following. 5. History of atrial fibrillation. Cardiology following. 6. Elevated proBNP. Patient's 2D echocardiogram of the heart shows ejection fraction of about 57% with no wall motion abnormalities. Normal LV function. 7. Deep vein thrombosis prophylaxis heparin. 8. Gastrointestinal prophylaxis proton pump inhibitor. cc: Hugh Peralta MD MTDD
--- NOTE | 2018-11-13 18:39 | CONSULTATION ---
DATE OF CONSULTATION: 11/13/2018 HISTORY OF PRESENT ILLNESS: A 58-year-old male who has been previously seen by me with urinary retention. He was found to have enlarged prostate. He was placed on Flomax and was last seen by me in 2016, at which point a plan was made to follow him with PVR and digital rectal examinations. He never came back for an appointment in 2017. He was admitted to the hospital on 11/11/2018 secondary to fever, chills, malaise, nausea and vomiting. In the process, he underwent CT scan abdomen and pelvis on 11/11/2018, revealing small left renal stones and severe suspicious of bladder wall thickening anteriorly. Urology was consulted. The patient reports that he had not had any changes in his voiding. He denies significant nocturia. He denies gross hematuria or flank pain. He does have occasional dysuria. He denies urinary incontinence. PAST MEDICAL HISTORY: Urolithiasis, BPH, DVT, hypertension, diabetes mellitus, GERD, chronic back pain, gout. PAST SURGICAL HISTORY: Carpal tunnel release, cholecystectomy, left elbow surgery. ALLERGIES: No known drug allergies. HOME MEDICATIONS: Methadone, Klonopin, Glucophage, Prilosec, clonidine, triamterene/hydrochlorothiazide, Percocet, Flomax, folic acid, Indocin, cyclobenzaprine. SOCIAL HISTORY: He currently denies tobacco, alcohol or illicit drug use. FAMILY HISTORY: Negative for malignancies. REVIEW OF SYSTEMS: Reviewed 12 systems, negative with the exception to the HPI. PHYSICAL EXAMINATION: T 98.2 degrees, P 93, BP 152/74. General: No acute distress. Pleasant male. HEENT: Normocephalic atraumatic. Cardiovascular: Regular rate and rhythm. Pulmonary: Bilateral breath sounds. Abdomen protuberant, nontender to palpation. : Yan catheter in place, draining straw-colored urine. Meatus is patent. Penile shaft is without masses. Testes are descended bilaterally without masses. There is mild edema of the scrotum consistent with reactive hydroceles bilaterally. Perineum is with intact structural integrity. Digital rectal examination is deferred at the time of examination. Back: No CVA tenderness. Lymphatic: No groin lymphadenopathy or cervical lymphadenopathy. Dermatologic: No obvious skin rashes. Neurologic: Alert and oriented x3. Psychiatric: Appropriate mood and affect. LABORATORY DATA: Pertinent labs: White cell count is 11,000. Creatinine is 3.2, down from 3.6. Urinalysis on 11/11/2018 reveals blood without evidence of bacteria. Pertinent microbiology results: None. DIAGNOSTIC DATA: Pertinent imaging: CT abdomen and pelvis per HPI. ASSESSMENT AND PLAN: A 58-year-old male who has had longstanding history of benign prostatic hypertrophy, who has not returned for followup to clinic as instructed in the past. He has CT scan findings of asymmetric bladder wall thickening as well as microscopic hematuria. I have discussed with the patient and his brother who is present at bedside differential diagnosis of microhematuria and bladder wall thickening, including bladder cancer. I have discussed with the patient that he would benefit from cystoscopic evaluation on outpatient basis. Certainly right now with sepsis secondary to pneumonia and acute kidney injury, he does not need an emergent workup of his bladder wall thickening. I have discussed with the patient that once he is out of the hospital I will be happy to see him on an outpatient basis to perform cystoscopy to further evaluate asymmetrical bladder wall thickening. He voiced understanding. Plan: No emergent urologic intervention needed at this time. After the patient is discharged home, I will be happy to see him in my clinic and perform cystoscopy to further evaluate microhematuria and asymmetric bladder wall thickening. Thank you for the consultation. Please call with questions. cc: Darci Perez MD
[2018-11-13] MEDS: FLOMAX PO SCH (20:53)
[2018-11-13] MEDS: KLONOPIN PO SCH (20:53)
[2018-11-14] MEDS: PERCOCET-10 PO PRN (01:37)
[2018-11-14] MEDS: LOPRESSOR PO SCH ×4 (01:38→21:30)
[2018-11-14] MEDS: ATROVENT NEB INH SCH ×6 (03:29→23:44)
[2018-11-14] MEDS: XOPENEX NEB INH SCH ×6 (03:29→23:44)
[2018-11-14 05:25] LABS: BASO# 0.07 X1000 (0.0-0.2); BASO% 0.8 % (0.0-0.8); EOS# 0.32 X1000 (0.0-0.7); EOS% 3.7 % (0.0-10.0); HEMATOCRIT 31.3 % (42.0-52.0); HEMOGLOBIN 9.9 g/dL (14.0-18.0); IMM GRAN# 0.04 X1000 (0.0-0.04); IMM GRAN% 0.5 % (0.0-0.5); LYMPH# 1.57 X1000 (1.2-3.4); MCH 28.6 PG (27-31); MCHC 31.6 g/dL (33-37); MCV 90.5 FL (81-99); MONO# 0.73 X1000 (0.11-0.59); MONO% 8.4 % (1.7-9.3); MPV 10.6 FL (7.4-10.4); NEUT# 5.99 X1000 (1.4-6.5); NEUT% 68.6 % (42.2-75.2); PLT 259 X1000 (130-400); RBC 3.46 XMIL (4.7-6.1); RDW 14.8 % (11.5-14.5); WBC 8.72 X1000 (4.8-10.8)
[2018-11-14 05:35] LABS: ALBUMIN 2.8 g/dL (3.5-5.0); CALCIUM 9.2 mg/dL (8.8-10.2); CREATININE 1.8 mg/dL (0.7-1.2); MAGNESIUM 1.7 mg/dL (1.5-2.7); PHOSPHORUS 4.8 mg/dL (2.7-4.5); POTASSIUM 4.3 mmol/L (3.5-5.1)
[2018-11-14] MEDS: PRILOSEC PO SCH (06:06)
[2018-11-14] MEDS: ROCEPHIN 2 GM in NS 50 ML IV SCH ×2 (06:06→17:36)
[2018-11-14] MEDS: HUMULIN R SUBQ SCH ×4 (06:10→21:22)
[2018-11-14] MEDS: NS 1,000 ML IV SCH (06:11)
[2018-11-14 06:26] LABS: EOS 2 % (1-10); LYMPHS 28 % (21-51); MONO 2 % (1-9); SEGS 68 % (42-75)
[2018-11-14] MEDS: PULMICORT INH SCH ×2 (07:40→19:56)
[2018-11-14] MEDS: METHADONE PO SCH ×3 (08:11→21:21)
[2018-11-14] MEDS: FOLIC ACID PO SCH (08:11)
[2018-11-14] MEDS: ZYVOX 600 MG/D5W 600 MG/300 ML IVPB IV SCH (08:11)
[2018-11-14] MEDS: CARDIZEM PO SCH ×3 (08:11→21:19)
--- NOTE | 2018-11-14 10:14 | NEPHROLOGY PROGRESS NOTE ---
DATE: 11/14/2018 SUBJECTIVE: Patient is sitting up in bed. He states that he has been ambulatory and wants his Yan catheter removed. OBJECTIVE: Vital Signs: Temperature 97.6 degrees, pulse 88, respiratory rate 18, blood pressure 174/80. Intake 1.6 L. Output 2.3 L. PHYSICAL EXAMINATION: General: This is an middle-aged gentleman sitting up in bed. Awake alert, no acute distress. HEENT: Normocephalic, atraumatic. JOHN. Continues with some facial edema. Neck: Supple without JVD. Cardiovascular: Regular rate and rhythm. Pulmonary: Clear bilaterally with equal excursion. Abdomen: Soft, with positive bowel sounds. : Yan catheter clear yellow urine. Extremities: 2+ edema. Integumentary: Skin is pale, warm, and dry. LAB DATA: WBC of 8.7, hemoglobin 9.9. Sodium 141, potassium 4.3, CO2 23, creatinine 1.8. ASSESSMENT AND PLAN: 1. Acute on chronic kidney disease. His baseline creatinine is about 1.2 to 1.3. Creatinine today is 1.8. His urine output has been excellent. From a renal perspective, we have no need to change his current treatment plan. We will continue to monitor labs while he is in the hospital. 2. Sepsis, probable upper lobe left upper lobe pneumonia. Followed by ID. Continue current treatment plan. 3. Electrolytes, acid-base balance. These are acceptable. 4. Yan catheter. From a renal perspective, I have no need to continue as long as the patient is able to void so that we can obtain measured output. That can be discontinued as needed. Dictated by DIANA Black for Jeffy Rosales MD cc: Jeffy Rosales MD
[2018-11-14] MEDS: DOXYCYCLINE PO SCH ×2 (10:37→21:19)
--- NOTE | 2018-11-14 14:51 | PROGRESS NOTE ---
DATE: 11/14/2018 SUBJECTIVE: Patient notes he is doing a lot better today. He is able to start getting up with some help. States he is still very tired, fatigued, still having swelling of lower extremities. Denies any chest pain palpitations. PHYSICAL EXAMINATION: Vital Signs: 97.6 degrees, pulse 88, respiratory 20, BP 174/80. General: Patient is awake, very pleasant to talk with. He is in no current respiratory distress. HEENT: Normocephalic. Neck: Supple. Cardiovascular: Regular rate. Chest: Clear. Abdomen: Soft. Extremities: Moves all extremities. ASSESSMENT: 1. Sepsis secondary to pneumonia, resolved. 2. Pneumonia improving. 3. Leukocytosis. White count initially was 41, currently down to 8. 4. Acute on chronic renal failure. Creatinine 3.7 initially, currently down to 1.8. 5. History of atrial fibrillation. 6. Hypomagnesemia, resolved. PLAN: At this point, patient's blood cultures are negative. We will stop Zyvox, change to doxycycline to p.o. Continue Rocephin. Discontinue his Yan catheter. Hopefully in the a.m. he can transition to the floor and home soon. He still is on oxygen at 3 L. We will attempt to wean this down as tolerated. cc: Ismael Juarez MD
[2018-11-14] MEDS ORDERED: LASIX IV ONE (16:03)
--- NOTE | 2018-11-14 16:16 | PULMONOLOGY PROGRESS NOTE ---
DATE: 11/14/2018 SUBJECTIVE: The patient is awake, alert, and conversant. He has a cough which is nonproductive. He reports he feels significantly better than at the time of discharge. OBJECTIVE: Vital Signs: The patient has been afebrile for the last 24 hours. Blood pressure 166/68, heart rate 83, respiratory rate 18, oxygen saturation 97% on 2 L per nasal cannula. HEENT: Pupils are equal and reactive. Oropharynx is clear. Neck: Neck is supple. Chest: Reveals good air entry bilaterally with crackles in the left mid lung zone. Cardiac exam: S1, S2. Abdomen: Soft. Extremities: Reveal 1+ peripheral edema. LABORATORIES: White blood count 8.72, hemoglobin 9.9, platelet count 259,000. Sodium 141, potassium 4.3, chloride 23. BUN 40, creatinine 1.8. IMPRESSION: A 58 year old with pneumonia, acute hypoxemic respiratory failure, acute renal failure. The patient continues to improve. He has undergone a CT-guided biopsy of the left lung. RECOMMENDATIONS: 1. Continue antibiotics as outlined per Dr. Lenin Stanford. 2. Diuretic dose this evening. 3. Two-view chest x-ray tomorrow. 4. Follow up CT-guided biopsy pathology. cc: Gonzalez Gibbs MD
[2018-11-14] MEDS: FLOMAX PO SCH (21:18)
[2018-11-14] MEDS: KLONOPIN PO SCH (21:21)
[2018-11-15] MEDS: LOPRESSOR PO SCH ×4 (02:52→21:32)
[2018-11-15] MEDS: XOPENEX NEB INH SCH ×6 (03:16→22:59)
[2018-11-15] MEDS: ATROVENT NEB INH SCH ×6 (03:16→22:59)
[2018-11-15] MEDS: PRILOSEC PO SCH ×2 (05:37→06:08)
[2018-11-15] MEDS: ROCEPHIN 2 GM in NS 50 ML IV SCH ×2 (05:38→17:09)
[2018-11-15 05:54] LABS: CALCIUM 9.4 mg/dL (8.8-10.2); CREATININE 1.4 mg/dL (0.7-1.2); MAGNESIUM 1.3 mg/dL (1.5-2.7); PHOSPHORUS 3.4 mg/dL (2.7-4.5)
[2018-11-15] MEDS: HUMULIN R SUBQ SCH ×4 (06:08→22:34)
[2018-11-15] MEDS: PULMICORT INH SCH ×2 (07:53→19:32)
--- NOTE | 2018-11-15 08:45 | INFECTIOUS DISEASE PROGRESS NO ---
DATE: 11/15/2018 PRESENT ILLNESS: The patient has pneumonia and his altered mental status appears to have resolved. MEDICATIONS: The patient is receiving a combination of Rocephin and doxycycline. This is day 4 of treatment with the antibiotics. PHYSICAL EXAMINATION: Vital Signs: Temperature is 99 degrees, pulse 92, respirations 18, blood pressure 165/79. General: This is an obese but otherwise healthy-appearing, middle-aged male. He is in no acute distress. Head, Eyes, Ears, Nose, and Throat: He can hear my spoken words and see near objects. His sinuses are not tender. He does not have any white patches on his tongue. He does have epistaxis. Neck: No meningismus. Lungs: Clear to auscultation. Cardiovascular: The patient's heart rate is irregular. Abdomen: Soft and nontender. Neurologic: The patient is alert. He is oriented as to time, place, and person. He can move his extremities. There is no tremor. Integument: The patient seems to have lost most all of the flushed kind of erythematous discolor he had of his face and chest. LAB AND X-RAY: Chest x-ray shows improvement in the patient's infiltrates. Blood cultures are negative. Creatinine is 1.4. GFR is 52. CBC shows a white count of 8720, hemoglobin 9.9, platelet count 259,000. ASSESSMENT AND PLAN: The patient has pneumonia. His altered mental status has cleared and now he seems to be normal. The patient's pneumonia is improving also. I have discussed with Dr. Peralta and our plan now is to send the patient home tomorrow on a combination of doxycycline and Ceftin. My plan is to send the patient home on doxycycline and Ceftin, and the patient will have an appointment in my office in 1 week. COMORBIDITIES: He is a diabetic and he has an anxiety disorder as well as gastroesophageal reflux disease. cc: Lenin Stanford MD [facility]
--- NOTE | 2018-11-15 08:48 | Diag Imaging Result Doc PS360 ---
CHEST-2 VIEWS - 11/15/2018 INDICATION: abnormal exam COMPARISON: 11/13/2018 FINDINGS: There is continued improvement in the left upper lobe pneumonia. IMPRESSION: Improvement in the left upper lobe pneumonia. Electronically signed by Fred Moore 11/15/2018 8:45 AM
[2018-11-15] MEDS: METHADONE PO SCH ×3 (09:16→21:33)
[2018-11-15] MEDS: CARDIZEM PO SCH ×3 (09:16→21:31)
[2018-11-15] MEDS: FOLIC ACID PO SCH (09:16)
[2018-11-15] MEDS: DOXYCYCLINE PO SCH ×2 (09:16→21:33)
[2018-11-15] MEDS: NS 1,000 ML IV SCH (11:36)
[2018-11-15] MEDS ORDERED: MAGNESIUM SULFATE 2 GM/S.W.I. 2 GM/50 ML IVPB IV ONE (13:54)
--- NOTE | 2018-11-15 14:20 | CARDIOLOGY PROGRESS NOTE ---
DATE: 11/15/2018 SUBJECTIVE: Mr. Leavitt reports his breathing is doing well. He has not had any chest pain. No palpitations. PHYSICAL: Afebrile. Heart rate 87, blood pressure 167/103.General: No acute distress. Cardiovascular: He sounds to be in an irregularly irregular rhythm. He has no obvious murmurs. He has no S3. His telemetry currently shows atrial fibrillation with rapid ventricular response. Chest: Is clear bilaterally. No increased work of breathing. Abdomen: Soft, nontender. PERTINENT DATA: Sodium 144, potassium 4, BUN 31, creatinine is 1.4 which is steadily improved, his magnesium level is 1.3. ASSESSMENT: Mr. Hawk is a 58-year-old gentleman who presented with acute renal failure and paroxysmal atrial fibrillation. PLAN: I will up-titrate his metoprolol to 25 mg p.o. q.6 hours. He is continuing on the remainder of his medications. Dr. Melton will be back to see the patient in the morning. cc: Danny Hood MD
--- NOTE | 2018-11-15 15:30 | PROGRESS NOTE ---
DATE: 11/15/2018 SUBJECTIVE: Patient resting comfortable in bed. OBJECTIVE: Vital signs: Temperature 97.6 degrees, pulse 87, respiratory 18, blood pressure 167/103, oxygen saturation 98%. HEENT: Atraumatic, normocephalic. Cardiovascular: S1, S2. Respiratory: Has evidence of good air entry bilaterally. Abdomen: Soft, nontender, no masses felt. Extremities: No significant edema in the lower extremities. Central nervous system: No obvious focal deficits noted. LABORATORY DATA: X-ray chest shows improving left upper lobe pneumonia. ASSESSMENT AND PLAN: 1. Sepsis secondary to pneumonia. Continue intravenous fluids. Follow up on cultures. 2. Pneumonia involving left lung. Continue antibiotic as recommended by ID. 3. History of deep vein thrombosis. Chronic, no need for anticoagulation at this time. 4. Acute kidney injury. Nephrology following. 5. Atrial fibrillation. Cardiology following. 6. Deep vein thrombosis prophylaxis heparin. Would hold heparin in light of epistaxis. 7. Gastrointestinal prophylaxis PPI. cc: Hugh Peralta MD
--- NOTE | 2018-11-15 15:52 | PULMONOLOGY PROGRESS NOTE ---
DATE: 11/15/2018 SUBJECTIVE: The patient reports he had a nosebleed this morning but otherwise he is doing well. He is on anticoagulation for atrial fibrillation. OBJECTIVE: Vital Signs: The patient has been afebrile for the last 24 hours. Blood pressure 167/103, heart rate 87, respiratory rate 16, oxygen saturation 98% on room air. HEENT: Pupils are equal and reactive. Oropharynx is clear. Neck: Supple. Chest: Reveals good air entry bilaterally without wheezing or rhonchi. Cardiac Examination: S1 and S2. Irregular rhythm. Abdomen: Soft. Extremities: Reveal trace edema. Laboratories: Chest x-ray reveals continued improvement in the left upper lobe pneumonia. IMPRESSION: A 58-year-old with: 1. Pneumonia. 2. Acute hypoxemic respiratory failure. 3. Acute renal failure. 4. He underwent a CT-guided biopsy of the left lung. He continues to improve. RECOMMENDATIONS: 1. Complete antibiotics as outlined per Dr. Lenin Stanford. 2. Atrial fibrillation management per cardiology. 3. Followup CT guided biopsy but with continued improvement in chest x-ray, this is likely to be benign. cc: Gonzalez Gibbs MD
[2018-11-15] MEDS: FLOMAX PO SCH (21:31)
[2018-11-15] MEDS: KLONOPIN PO SCH (21:32)
[2018-11-16] MEDS: LOPRESSOR PO SCH ×3 (01:37→08:49)
[2018-11-16] MEDS: XOPENEX NEB INH SCH ×4 (03:34→16:10)
[2018-11-16] MEDS: ATROVENT NEB INH SCH ×4 (03:34→16:10)
[2018-11-16] MEDS: PERCOCET-10 PO PRN (04:08)
[2018-11-16] MEDS: NS 1,000 ML IV SCH (04:42)
[2018-11-16 05:40] LABS: BASO# 0.24 X1000 (0.0-0.2); BASO% 2.9 % (0.0-0.8); EOS# 0.17 X1000 (0.0-0.7); HEMATOCRIT 32.2 % (42.0-52.0); HEMOGLOBIN 10.4 g/dL (14.0-18.0); LYMPH# 1.79 X1000 (1.2-3.4); LYMPH% 21.4 % (20.5-51.1); MCH 28.9 PG (27-31); MCHC 32.3 g/dL (33-37); MCV 89.4 FL (81-99); MONO# 0.77 X1000 (0.11-0.59); MONO% 9.2 % (1.7-9.3); MPV 10.2 FL (7.4-10.4); NEUT# 5.41 X1000 (1.4-6.5); NEUT% 64.5 % (42.2-75.2); PLT 283 X1000 (130-400); RDW 14.8 % (11.5-14.5); WBC 8.38 X1000 (4.8-10.8)
[2018-11-16 05:50] LABS: AGAP 12; BUN 25 mg/dL (8-22); CALCIUM 9.1 mg/dL (8.8-10.2); CHLORIDE 98 mmol/L (98-107); COSMO 283; CREATININE 1.1 mg/dL (0.7-1.2); ESTIMATED GFR > 60; GLUCOSE 119 mg/dL (70-104); PHOSPHORUS 3.7 mg/dL (2.7-4.5); POTASSIUM 3.9 mmol/L (3.5-5.1); SODIUM 139 mmol/L (136-145); TCO2 29 mmol/L (25-35)
[2018-11-16] MEDS: HUMULIN R SUBQ SCH ×2 (06:01→11:43)
[2018-11-16] MEDS: PRILOSEC PO SCH (06:02)
[2018-11-16] MEDS: ROCEPHIN 2 GM in NS 50 ML IV SCH (06:02)
--- NOTE | 2018-11-16 06:54 | EKG Report ---
Test Performed on : 11/15/2018 6:56:07 PM Test Reason : afib vs sr Blood Pressure : / mmHG Vent. Rate : 088 BPM Atrial Rate : 088 BPM P-R Int : 194 ms QRS Dur : 112 ms QT Int : 392 ms P-R-T Axes : 041 -12 009 degrees QTc Int : 474 ms Normal sinus rhythm. Minimal voltage criteria for LVH, may be normal variant Borderline ECG When compared with ECG of 13-NOV-2018 08:02, T wave inversion now evident in Inferior leads T wave inversion no longer evident in Lateral leads Unconfirmed Result
[2018-11-16 07:04] LABS: URINE SOURCE CLEAN CATCH
[2018-11-16 07:06] LABS: BILIRUBIN URINE NEGATIVE (NEGATIVE); BLOOD URINE NEGATIVE (NEGATIVE); COLOR YELLOW; GLUCOSE URINE NEGATIVE (NEGATIVE); KETONE URINE NEGATIVE (NEGATIVE); LEUKOCYTES URINE TRACE (NEGATIVE); NITRITE URINE NEGATIVE (NEGATIVE); PH URINE 6.5; PROTEIN URINE TRACE mg/dL (NEGATIVE); SP GRAVITY URINE 1.011; TURBIDITY URINE CLEAR (CLEAR); UROBILINOGEN URINE NORMAL (NORMAL)
[2018-11-16 07:08] LABS: UR EPITHELIAL CELLS <10 /HPF (<10); URINE BACTERIA NEGATIVE /HPF; URINE RBC <10 /HPF (<10)
--- NOTE | 2018-11-16 07:23 | INFECTIOUS DISEASE PROGRESS NO ---
DATE: 11/16/2018 PRESENT ILLNESS: The patient has pneumonia which is improving, which is improving as per the chest x-ray results. The patient's mental status appears to be normal. Yesterday the patient had epistaxis, but that has stopped since the nurse put humidity with the oxygen. MEDICATIONS: This is the 5th day of treatment with the combination of Rocephin and doxycycline. PHYSICAL EXAMINATION: Vital Signs: Temperature is 98.3 degrees, pulse 97, respirations 18, blood pressure 172/76. General: This is an obese, but otherwise healthy appearing middle-aged male. He is in no acute distress. HEENT: He can hear my spoken words and see near objects. He does not have any white coating on his tongue. Neck: No stiffness. Lungs: Clear to auscultation. Cardiovascular: Heart rate is regular. Abdomen: Soft and nontender. Neurologic: Patient is alert. He can move his extremities. There is no tremor. He has been sitting up in a chair. He also has been walking. LAB AND X-RAY: Chest x-ray shows improvement in the left upper lobe pneumonia. The patient's CBC shows a white count of 8380, hemoglobin 10.4, and platelet count of 283,000. Creatinine is 1.1. GFR is greater than 60. The patient had a lung needle biopsy, the results of which is pending. ASSESSMENT AND PLAN: Patient has pneumonia. I think he can be discharged. I have already put prescriptions in the chart for doxycycline and Ceftin and I have requested that the patient have a followup appointment in my office in 1 week. COMORBIDITIES: Include diabetes mellitus, anxiety disorder, gastroesophageal reflux disease. cc: Lenin Stanford MD
--- NOTE | 2018-11-16 07:35 | Diag Imaging Result Doc PS360 ---
CHEST-1 VIEW - 11/16/2018 INDICATION: pneumonia COMPARISON: 11/15/2018 FINDINGS: Lung volumes are critically low. There are no new abnormalities. IMPRESSION: No new abnormalities. Electronically signed by Fred Moore 11/16/2018 7:32 AM
[2018-11-16] MEDS: PULMICORT INH SCH (07:36)
[2018-11-16] MEDS: CARDIZEM PO SCH (08:49)
[2018-11-16] MEDS: FOLIC ACID PO SCH (08:49)
[2018-11-16] MEDS: DOXYCYCLINE PO SCH (08:49)
[2018-11-16] MEDS: METHADONE PO SCH (08:49)
[2018-11-16] MEDS ORDERED: AYR NASAL SPRAY NAS ONE (11:00)
--- NOTE | 2018-11-16 11:51 | NEPHROLOGY PROGRESS NOTE ---
DATE: 11/16/2018 SUBJECTIVE: Mr. Leavitt is resting quietly in bed. Head of bed is just slightly elevated. He is in no acute distress. Vital Signs: His most recent vital signs, his last temperature 98.3 degrees, blood pressure 172/76, heart rate 97, respirations 18. He is on 2 L nasal cannula. Last recorded saturation 97% he has had 559 in, 1425 out. LABORATORY DATA: Sodium is 139, potassium 3.9, chloride 98, CO2 29, BUN 25, creatinine 1.1, glucose 119. The patient's anion gap is 12. His calcium is 9.1, phosphorus 3.7, albumin of 3. White count 8.38, hemoglobin 10.4, hematocrit 32.2 with a platelet count of 283,000. The patient had a repeat urinalysis indicating continued positive proteinuria, trace leukocytes. The patient has been followed by Dr. Lenin Stanford. He remains on doxycycline and Rocephin renally dosed. PHYSICAL EXAMINATION: General: This is a 58-year-old white male resting quietly in bed. Head of the bed is elevated. No acute distress. Skin: Warm and dry. HEENT: Normocephalic, atraumatic. Conjunctiva is pale pink. He has JOHN. Mucous membranes are dry. Neck: Supple. Trachea midline. No evidence of JVD. Cardiovascular: Regular rate and rhythm without murmur or gallop. Lungs: Clear to auscultation bilaterally. Equal excursion on room air. Abdomen: Soft, nontender. Positive bowel sounds. Genitourinary: Not inspected. Adequate urine out as documented. Extremities: Have no edema. No clubbing or cyanosis. Neurological: He is alert and oriented x3. ASSESSMENT AND PLAN: Acute on chronic kidney disease. The patient's baseline creatinine is 1.2 to 1.3. His creatinine is down to his baseline of 1.1. He continues sepsis with left upper lobe pneumonia followed by infectious disease and primary care. These are all renally dosed. Subsequent to these findings, we will sign off and remain available if indicated. I would like to thank you for allowing us to follow with this patient. Dictated by DIANA Royal for Jeffy Rosales MD Face to face encounter, data reviewed, discussed with Arabella Carpenter on 11/16/18. I agree with the above assessment and plan of care. zen cc: DIANA Royal MD [facility]
[2018-11-16 12:09] VITALS: BP 167/82
[2018-11-16] MEDS ORDERED: FLU VACCINE IM ONE (12:40)
[2018-11-16] MEDS ORDERED: CARDIZEM CD PO SCH (14:45)
[2018-11-16] MEDS ORDERED: LOPRESSOR PO SCH (14:45)
--- NOTE | 2018-11-16 15:10 | DISCHARGE SUMMARY ---
ADMISSION DATE: 11/11/2018 DISCHARGE DATE: PRINCIPAL DIAGNOSIS: Community-acquired pneumonia. SECONDARY DIAGNOSIS: 1. Sepsis. 2. Atrial fibrillation with rapid ventricular rate. 3. Acute kidney injury. 4. Hyperkalemia. 5. Gout. 6. Chronic back pain. 7. Diabetes mellitus. 8. Gastroesophageal reflux disease. DISCHARGE MEDICATIONS: Include the followin. Doxycycline 100 mg p.o. twice a day as directed. 2. Cefuroxime 500 mg every 12 hours as directed. 3. Methadone 10 mg p.o. 3 times a day. 4. Klonopin 1 to 2 mg at bedtime. Not to not exceed 2 per day. 5. Metformin 500 mg p.o. twice a day. 6. Omeprazole 40 mg p.o. daily. 7. Oxycodone/acetaminophen 10/325 one tablet twice a day. 8. Tamsulosin 0.8 mg at bedtime. 9. Folic acid 1 mg p.o. daily. 10. Flexeril 10 mg p.o. twice a day. CONSULTATIONS DONE DURING THIS HOSPITAL STAY: 1. Dr. Austin Melton, Cardiology 2. Dr. Jeffy Rosales, Nephrology 3. Dr. Lenin Stanford, Infectious Disease. 4. Dr. Darci Perez, Urology. 5. Dr. Adrienne Schilling, Pulmonology. PROCEDURES DONE DURING THIS HOSPITAL STAY: 1. Lung V/Q scan, 11/11/2018. 2. Abdominal and pelvic CT, 11/12/[address] 11/12/2018. 4. Renal ultrasound 11/12/2018 5. Echocardiogram 11/12/2018. 6. Lung biopsy 11/13/2018. HOSPITAL COURSE: Mr. Ruy Leavitt is a 58-year-old male who presents to the hospital because of fever chills generalized malaise. He also had some nausea vomiting diarrhea. When he presented to the hospital x-ray of his chest showed evidence of left upper lobe opacity. He was diagnosed as having pneumonia and started on antibiotics. He was also thought to be septic as well. He was initially managed in the intensive care unit. He was found to be in atrial fibrillation with rapid ventricular rate, requiring Cardizem infusion. There was concern of possible lung mass and the patient was seen by the Pulmonary team. As well as he had lung biopsy done. I do not have the results of that biopsy report at this time. The patient was also seen by the cardiology team because of atrial fibrillation with rapid ventricular rate and Nephrology team because of acute kidney injury. The Infectious Disease team managed the patient's antibiotics. The patient did well was transferred to the [facility] unit where he continued to recuperate. The patient has done fairly well. At the time of presentation his white count was as high as 41.57 but as or today it dropped down to 8.38. At the time of presentation, renal function was grossly impaired. BUN/creatinine was 44/3.7 but today is now 25 1.1. PHYSICAL EXAMINATION: During my evaluation today vital signs as follows: Temperature 97.5 degrees, pulse 80, respiratory rate 16, blood pressure 167/82, oxygen 97%. HEENT: Atraumatic, normocephalic. Cardiovascular: S1, S2. Respiratory system: Has evidence of good entry bilaterally. Abdomen: Soft, nontender. No masses felt. Extremities: Extremities have some trace edema in the lower extremities. Central nervous system: No obvious focal deficit noted. LABORATORY DATA: WBC is 8.8, hematocrit 32.2 with a platelet count of 283,000. Sodium 139, potassium 3.9, chloride is 98, bicarb 29, BUN is 25, creatinine 1.1. UA shows about 10 to 20 WBCs per high-power field. Extremity Doppler study shows evidence of chronic deep venous thrombosis. PLAN: Will be to have the patient discharged home today on oral antibiotics. I will get her get Hematology to see him for his chronic DVT prior to discharge from the hospital. Following discharge patient will need to follow up with his primary care physician. Also follow up with Dr. Lenin Stanford, Infectious Disease, Dr. Darci Perez, Urology. DIET: Diabetic diet. ACTIVITY: As tolerated. cc: Ish Delgado [facility]ary Alice
== END 2018-11-16 16:50 | disposition home or self-care (01) | DRG 871 ==
LOC: ED 13:26 → SUATTDRO 17:11 → ICU 17:11 → 3S 11-13 02:43
PROVIDERS: ATTEND Internal Medicine
CPT/HCPCS: 32405; 51702; 71010; 71020; 71045; 71046; 71250; 74176; 76770; 77012; 78582; 80048; 80053; 80069; 81001; 82550; 82570; 82805; 82948; 83605; 83735; 83880; 83935; 84132; 84156; 84300; 84484; 84540; 85025; 85379; 85610; 85730; 86140; 87040; 87088; 88305; 88312; 88313; 90686; 93005; 93010; 93306; 93970; 94640; 94761; 96361; 96365; 96366; 96368; 96375; 97110; 97116; 97162; 97530; 99285; 99291; A9270; A9539; A9540; C8929; J0456; J0610; J0696; J1160; J1644; J1940; J2020; J3475; J7030; J7120; Q9957; S0109; XXXXX